=== PATIENT | female | born 1940 | race Caucasian/White ===

== ENCOUNTER → 2016-12-17 | Outpatient (CLI) | payer MEDICARE, OTHER ==
[~2016-12-17] MED LIST: ACET325 PO; ACIP20TA19 PO; ANTI12.5 PO; ASPI81 PO; CARD240C6 PO; LISI-360 PO; PRED5 PO; ZITH250T PO
[2016-12-17 09:27] LABS: AUTOMATED NEUTROPHIL # 5.7 TH/MM3 (1.8-7.7); BASOPHIL # 0.1 TH/MM3 (0-0.2); EOSINOPHIL # 0.2 TH/MM3 (0-0.4); EOSINOPHIL % 1.7 % (0.0-4.0); HEMATOCRIT 42.5 % (35.0-46.0); HEMO FLAGS DIFF FINAL; LYMPH % 24.4 % (9.0-44.0); LYMPHOCYTE # 2.2 TH/MM3 (1.0-4.8); MEAN CELL VOLUME 83.8 FL (80.0-100.0); MEAN CORPUSCULAR HEMOGLOBIN 27.9 PG (27.0-34.0); MEAN CORPUSCULAR HGB CONC 33.3 % (32.0-36.0); MONO % 9.8 % (0.0-8.0); NEUT % 63.1 % (16.0-70.0); PLATELET COUNT 244 TH/MM3 (150-450); RED BLOOD COUNT 5.07 MIL/MM3 (4.00-5.30); RED CELL DISTRIBUTION WIDTH 15.5 % (11.6-17.2)
[2016-12-17 10:46] LABS: ALKALINE PHOSPHATASE 93 U/L (45-117); ALT (GPT) 25 U/L (10-53); ANION GAP 8 MEQ/L (5-15); AST (GOT) 14 U/L (15-37); BLOOD UREA NITROGEN 14 MG/DL (7-18); CHLORIDE 104 MEQ/L (98-107); FREE T4 1.05 NG/DL (0.76-1.46); GLOMERULAR FILTRATION RATE 51 ML/MIN (>89); GLUCOSE,FASTING 101 MG/DL (74-99); SODIUM (NA) 139 MEQ/L (136-145); TOTAL BILIRUBIN ADULT 0.7 MG/DL (0.2-1.0)
== END ==
LOC: PLAB 07:10
PROVIDERS: ATTEND Family Medicine
DX: I10 Essential (primary) hypertension (principal); R53.83 Other fatigue; E55.9 Vitamin D deficiency, unspecified
CPT/HCPCS: 36415; 80053; 82306; 82607; 82746; 84439; 84443; 84480; 85025

== ENCOUNTER 2017-04-24 22:57 | Inpatient (IN) | payer MEDICARE, OTHER ==
[~2017-04-24] VITALS: Ht 165.1 cm; Wt 143.9 kg
[2017-04-24 22:58] VITALS: BP 181/81; PULSE 74; RESP 22; TEMP 97.9; O2SAT 98
[2017-04-24] MEDS ORDERED: SODIUM CHLOR 0.9% 1000 ML INJ 1,000 ML IV ONE (23:01)
[2017-04-24 23:09] VITALS: O2SAT 98
[2017-04-24 23:24] LABS: I-STAT POTASSIUM 4.2 MMOL/L (3.5-4.9); I-STAT SODIUM 139 MMOL/L (138-146)
[2017-04-24 23:27] LABS: AUTOMATED NEUTROPHIL # 5.7 TH/MM3 (1.8-7.7); BASOPHIL # 0.1 TH/MM3 (0-0.2); BASOPHIL % 0.9 % (0.0-2.0); EOSINOPHIL # 0.1 TH/MM3 (0-0.4); EOSINOPHIL % 1.5 % (0.0-4.0); HEMATOCRIT 42.8 % (35.0-46.0); HEMO FLAGS DIFF FINAL; LYMPH % 28.6 % (9.0-44.0); LYMPHOCYTE # 2.8 TH/MM3 (1.0-4.8); MEAN CELL VOLUME 84.5 FL (80.0-100.0); MEAN CORPUSCULAR HEMOGLOBIN 27.6 PG (27.0-34.0); MEAN CORPUSCULAR HGB CONC 32.7 % (32.0-36.0); MONO % 11.2 % (0.0-8.0); NEUT % 57.8 % (16.0-70.0); PLATELET COUNT 183 TH/MM3 (150-450); RED BLOOD COUNT 5.06 MIL/MM3 (4.00-5.30); RED CELL DISTRIBUTION WIDTH 15.4 % (11.6-17.2); WHITE BLOOD COUNT 9.9 TH/MM3 (4.0-11.0)
--- NOTE | 2017-04-24 23:31 | RADRPT ---
EXAM DATE/TIME: 04/24/2017 23:16 [place] COMPARISON: No previous studies available for comparison. INDICATIONS : Stroke Alert. Left sided weakness. RADIATION DOSE: 40.83 CTDIvol (mGy) MEDICAL HISTORY : Cerebrovascular disease. Cardiovascular disease Hypertension. SURGICAL HISTORY : Appendectomy. Cholecystectomy. ENCOUNTER: Initial ACUITY: 1 day PAIN SCALE: 0/10 LOCATION: cranial TECHNIQUE: Multiple contiguous axial images were obtained of the head. Using automated exposure control and adj ustment of the mA and/or kV according to patient size, radiation dose was kept as low as reasonably a chievable to obtain optimal diagnostic quality images. DICOM format image data is available electro nically for review and comparison. FINDINGS: CEREBRUM: The ventricles are normal. No evidence of midline shift, mass lesion, hemorrhage or acute infarction . No extra-axial fluid collections are seen. POSTERIOR FOSSA: The cerebellum and brainstem demonstrate no abnormality. The 4th ventricle is midline. The cerebell opontine angle is unremarkable. EXTRACRANIAL: Visualized sinuses are clear. SKULL: The calvaria is intact. No evidence of skull fracture. CONCLUSION: Negative noncontrast head CT. No acute intracranial abnormality is identified. The above findings were telephoned to Dr. Sahu at 11: 28 PM on 04/24/2017. Imtiaz Bush MD on April 24, 2017 at 23:24 Board Certified Radiologist. This report was verified electronically.
[2017-04-24 23:36] LABS: APTT (PATIENT) 22.8 SEC (24.3-30.1); PROTHROMBIN TIME - PATIENT 10.8 SEC (9.8-11.6)
--- NOTE | 2017-04-24 23:42 | PD ---
HPI Chief Complaint: Stroke Alert Time Seen by Provider: 23:01 Travel History International Travel<30 days: No Contact w/Intl Traveler<30days: No Traveled to known affect area: No History of Present Illness HPI 76-year-old female with history of A. fib on aspirin, basilar artery stroke, hyperlipidemia, hypertension, brought in by EMS from home as a stroke alert. The patient was sleeping, and when she woke up about an hour prior to arrival she felt fine, however when she turned to her side she became extremely dizzy. She then noticed left upper extremity and left lower extremity weakness and inability to ambulate because of this weakness. 911 was called, and upon arrival EMS noted left facial droop, slightly slurred speech, left arm and left leg weakness. Upon arrival to the emergency department her symptoms have improved. She no longer has a left facial droop in her left upper extremity weakness is improving. She is still complaining of left leg weakness as well as paresthesias. No visual disturbances. No headache. No chest pain or dyspnea. Stroke alert called prior to patient arrival in the emergency department. PFSH Past Medical History Arthritis: Yes Blood Disorders: No Heart Rhythm Problems: Yes (TACHYCARDIA) Cancer: No Cardiovascular Problems: Yes Chemotherapy: No Chest Pain: Yes Cerebrovascular Accident: Yes Diminished Hearing: No Endocrine: No Gastrointestinal Disorders: Yes GERD: Yes Genitourinary: No Hypertension: Yes Immune Disorder: No Musculoskeletal: Yes (FIBROMYALGIA) Neurologic: Yes (ANTERIOR VERTEBRAL ARTERY OCCLUSION) Psychiatric: No Reproductive: No Respiratory: Yes (ASTHMA) Radiation Therapy: No Seizures: Yes Sleep Apnea: Yes Menopausal: Yes Ovarian Cysts: Yes Past Surgical History Abdominal Surgery: Yes (CHOLECYSECTOMY, APPENDECTOMY) AICD: No Appendectomy: Yes Arteriovenous Shunt: No Cholecystectomy: Yes Gynecologic Surgery: Yes (D&C) Insulin Pump: No Joint Replacement: No Pacemaker: No Other Surgery: Yes (LEFT BREAST LUMPECTOMY; TEMPORAL ARTERY BIOPSY;) Social History Alcohol Use: No Tobacco Use: No Substance Use: No Allergies-Medications (Allergen,Severity, Reaction): Coded Allergies: acebutolol (Unverified Allergy, Severe, 04/08/17) amlodipine (Unverified Allergy, Severe, NAUSEA,HEADACHE,VOMITING, 04/08/17) atenolol (Unverified Allergy, Severe, 04/08/17) atorvastatin (Unverified Allergy, Severe, NAUSEA,HEADACHE,VOMITING, ) betaxolol (Unverified Allergy, Severe, 04/08/17) carvedilol (Unverified Allergy, Severe, 04/08/17) cephalexin (Unverified Allergy, Severe, 04/08/17) diltiazem (Unverified Allergy, Severe, NAUSEA,HEADACHE,VOMITING, 04/08/17) doxepin (Unverified Allergy, Severe, 04/08/17) hydrochlorothiazide (Unverified Allergy, Severe, 04/08/17) iohexol (Unverified Allergy, Severe, Code 99 - Respiratory Failure, ) isradipine (Unverified Allergy, Severe, NAUSEA,HEADACHE,VOMITING, 04/08/17) labetalol (Unverified Allergy, Severe, 04/08/17) levothyroxine (Unverified Allergy, Severe, 04/08/17) levothyroxine sodium (Unverified Allergy, Severe, 04/08/17) medroxyprogesterone (Unverified Allergy, Severe, 04/08/17) metoprolol (Unverified Allergy, Severe, 04/08/17) monosodium glutamate (Unverified Allergy, Severe, 04/08/17) nebivolol (Unverified Allergy, Severe, 04/08/17) nicardipine (Unverified Allergy, Severe, NAUSEA,HEADACHE,VOMITING, 04/08/17 ) nifedipine (Unverified Allergy, Severe, NAUSEA,HEADACHE,VOMITING, 04/08/17) nimodipine (Unverified Allergy, Severe, NAUSEA,HEADACHE,VOMITING, 04/08/17) pindolol (Unverified Allergy, Severe, 04/08/17) prochlorperazine (Unverified Allergy, Severe, 04/08/17) propranolol (Unverified Allergy, Severe, 04/08/17) ranitidine (Unverified Allergy, Severe, 04/08/17) scopolamine (Unverified Allergy, Severe, 04/08/17) sotalol (Unverified Allergy, Severe, 04/08/17) ticlopidine (Unverified Allergy, Severe, 04/08/17) timolol (Unverified Allergy, Severe, 04/08/17) verapamil (Unverified Allergy, Severe, 04/08/17) MRI PRECAUTION (Verified Allergy, Mild, 10/19/11) codeine (Unverified Allergy, Mild, 04/08/17) diatrizoate meglumine (Unverified Allergy, Mild, 04/08/17) diazepam (Unverified Allergy, Mild, 04/08/17) diphenhydramine (Unverified Allergy, Mild, 04/08/17) doxazosin (Unverified Allergy, Mild, 04/08/17) gadobenic acid (Unverified Allergy, Mild, 04/08/17) gadodiamide (Unverified Allergy, Mild, 04/08/17) gadoteridol (Unverified Allergy, Mild, 04/08/17) iodixanol (Unverified Allergy, Mild, 04/08/17) phentolamine (Unverified Allergy, Mild, 04/08/17) prazosin (Unverified Allergy, Mild, 04/08/17) prednisone (Unverified Allergy, Mild, 04/08/17) terazosin (Unverified Allergy, Mild, 04/08/17) Uncoded Allergies: ASPARATINE (Allergy, Severe, 07/12/07) STERIODS (Allergy, Severe, 07/12/07) MUCINEX (Allergy, Mild, 10/19/11) Reported Meds & Prescriptions Reported Meds & Active Scripts Active Deltasone 5 mg Tab (Prednisone) 5 Mg Tab 5 Mg PO DIRECTED 3 PO DAY 1 2 PO DAY 2 1 PO DAY 3 Zithromax Z-Michael (Azithromycin) 250 Mg Tab 250 Mg PO DIRECTED 5 Days 500 MG (2 TABLETS) PO ON DAY 1, THEN 250 MG (1 TABLET) PO ON DAYS 2 TO 5. Reported Tylenol (Acetaminophen) 325 Mg Tab 325 Mg PO DIRECTED Lisinopril 10 mg (Lisinopril) 10 Mg Tab 10 Mg PO DAILY Antivert (Meclizine HCl) 12.5 Mg Tab 12.5 Mg PO DAILY Aciphex (Rabeprazole Sodium) 20 Mg Tabdr 20 Mg PO DAILY Aspirin 81 Mg Tab 81 Mg PO DAILY Cardizem Cd (Diltiazem HCl) 240 Mg Cap 240 Mg PO DAILY Review of Systems Except as stated in HPI: all other systems reviewed are Neg Physical Exam Narrative GENERAL: Well-developed, well-nourished, overweight, awake, alert, no apparent distress. SKIN: Focused skin assessment warm/dry. HEAD: Atraumatic. Normocephalic. EYES: Pupils equal, round, 3 mm, reactive to light. EOMI. Visual morton intact. No scleral icterus. No injection or drainage. ENT: No nasal bleeding or discharge. Mucous membranes pink and moist. NECK: Trachea midline. No JVD. CARDIOVASCULAR: Regular rate and rhythm. RESPIRATORY: No accessory muscle use. Clear to auscultation. Breath sounds equal bilaterally. GASTROINTESTINAL: Abdomen soft, non-tender, nondistended. MUSCULOSKELETAL: No obvious deformities. No clubbing. No cyanosis. No edema. NEUROLOGICAL: Awake and alert. No obvious cranial nerve deficits. Motor grossly within normal limits. Normal speech. Slight left pronator drift. Normal [id number] test bilaterally. Normal meat boner strength in the right hand. 4/5 meat boner strength in the left hand. 5 out of 5 muscle strength in the right leg. 1 out of 5 muscle strength in the left leg. PSYCHIATRIC: Appropriate mood and affect; insight and judgment normal. Data Data Last Documented VS Orders Orders Activity Bed Rest (04/24/17 ) Electrocardiogram (04/24/17 ) I-Stat Creatinine (04/24/17 23:01) I-Stat Profile (04/24/17 23:) Prothrombin Time / Inr (Pt) (04/24/17 23:) Act Partial Throm Time (Ptt) (04/24/17 23:) Complete Blood Count With Diff (04/24/17 23:) Fibrinogen (04/24/17 23:) Creatine Kinase (Cpk) (04/24/17 23:) Troponin I (04/24/17 23:01) Ua Includes Microscopic (04/24/17 23:01) Drug Screen, Random Urine (04/24/17 23:) Type And Screen (04/24/17 23:) Ct Brain W/O Iv Contrast(Rout) (04/24/17 ) Consult Neurology (04/24/17 ) Blood Glucose (04/24/17 23:01) Ecg Monitoring (04/24/17 23:) Neuro Checks Q2HX12,Q4H (04/24/17 23:01) Nursing Bedside Swallow Assess .ONCE (04/24/17 23:01) Iv Access Insert/Monitor (04/24/17 23:01) NPO (04/24/17 23:) Oximetry (04/24/17 23:) Oxygen Administration (04/24/17 23:) Sodium Chlor 0.9% 1000 Ml Inj (Ns 1000 M (04/24/17 23:01) Resp Oxygen Irwin C Titrat 1-4 L (04/24/17 23:) Cath For Specimen (04/24/17:) Sodium Chlorid 0.9% 500 Ml Inj (Ns 500 M (04/24/17 23:45) Heparin Infusion JESSICA.Q1H (04/24/17 23:45) Heparin-D5w 25,000 U/250 Ml (Heparin-D5w (04/24/17 23:45) Cbc No Diff, Includes Plts (04/27/17 06:00) Occult Blood (Hemoccult) Stool (04/24/17 23:45) Warfarin (Coumadin) (04/24/17 23:45) Admit Order (Ed Use Only) (04/25/17 00:12) Place In Observation (04/25/17 ) Vital Signs (Adult) Q4H (04/25/17 00:34) Neuro Checks Q4H (04/25/17 00:34) Activity Oob With Assistance (04/25/17 00:34) [employer] Service Officer / Telemetry .CONTINUOUS (04/25/17 00:34) Diet Heart Healthy (04/25/17 Breakfast) Sodium Chloride 0.9% Flush (Ns Flush) (04/25/17 00:45) Sodium Chloride 0.9% Flush (Ns Flush) (04/25/17 09:00) Basic Metabolic Panel (Bmp) (04/26/17 06:00) Complete Blood Count With Diff (04/26/17 06:00) Pt Request For Service (04/25/17 00:34) Case Management Consult (04/25/17 00:34) Naloxone Inj (Narcan Inj) (04/25/17 00:45) Labs Laboratory Tests Test 04/24/17 23:10 White Blood Count 9.9 TH/MM3 Red Blood Count 5.06 MIL/MM3 Hemoglobin 14.0 GM/DL Bedside Hemoglobin 13.9 G/DL Hematocrit 42.8 % Bedside Hematocrit 41.0 % Mean Corpuscular Volume 84.5 FL Mean Corpuscular Hemoglobin 27.6 PG Mean Corpuscular Hemoglobin Concent 32.7 % Red Cell Distribution Width 15.4 % Platelet Count 183 TH/MM3 Mean Platelet Volume 9.2 FL Neutrophils (%) (Auto) 57.8 % Lymphocytes (%) (Auto) 28.6 % Monocytes (%) (Auto) 11.2 % Eosinophils (%) (Auto) 1.5 % Basophils (%) (Auto) 0.9 % Neutrophils # (Auto) 5.7 TH/MM3 Lymphocytes # (Auto) 2.8 TH/MM3 Monocytes # (Auto) 1.1 TH/MM3 Eosinophils # (Auto) 0.1 TH/MM3 Basophils # (Auto) 0.1 TH/MM3 CBC Comment DIFF FINAL Differential Comment Prothrombin Time 10.8 SEC Prothromb Time International Ratio 1.0 RATIO Activated Partial Thromboplast Time 22.8 SEC Fibrinogen 449 mg/dL Bedside Sodium 139 MMOL/L Bedside Potassium 4.2 MMOL/L Bedside Chloride 107 MMOL/L Bedside Blood Urea Nitrogen 17 MG/DL Bedside Creatinine 1.1 MG/DL Bedside Glucose 113 MG/DL Total Creatine Kinase 64 U/L Troponin I LESS THAN 0.02 NG/ML MDM Medical Screen Exam Complete: Yes Emergency Medical Condition: Yes Medical Record Reviewed: Yes Differential Diagnosis CVA, ICH, metabolic abnormality Narrative Course 11:05 PM: Case discussed with on-call neurologist Dr. Palmer. Patient is a TPA candidate based on her symptoms. I discussed TPA with the patient and she knows all about this medication and is refusing. She understands the risks and benefits of refusing TPA. 11:30 PM: I was called by the on-call radiologist who informed me that the CT head shows no acute abnormalities. On reassessment the patient's muscle strength in her left leg has significantly improved and is now 4 out of 5. Not only does the patient did not want TPA, her improving symptoms make her less of a candidate for this medication. Case discussed again with Dr. Palmer who recommends a 300 cc normal saline bolus, had a bit flat, starting the patient on heparin with no bolus, and giving the patient an initial dose of Coumadin 10 mg orally. This was discussed with the patient who is refusing heparin and Coumadin, stating that she believes she may be allergic to these medications but is unsure. She understands the risks of refusing these medications including further CVA and permanent hemiparesis/disability. Dr. Palmer also like a CTA of the brain and the neck, however the patient is allergic to IV contrast. 11:45 PM: I had a discussion with the patient regarding her decision to refuse heparin and Coumadin. After discussing the risks and benefits again with her, she decided that she would like to be started on these medications. Case discussed with hospitalist Dr. Segundo who will admit the patient to her service. Critical Care Narrative Aggregate critical care time was 40 minutes. Time to perform other separately billable procedures was not included in the critical care time. My time did not include minutes spent treating any other patients simultaneously or on activities that did not directly contribute to the patient's treatment. The services I provided to this patient were to treat and/or prevent clinically significant deterioration that could result in: Permanent disability, , worsening clinical condition. I provided critical care services requiring my management, as noted below: Chart data review, documentation time, medication orders and management, vital sign assessments/reviewing monitor data, ordering and reviewing lab tests, ordering and interpreting/reviewing x-rays and diagnostic studies, care of the patient and discussion of the patient with the admitting physicians. Stroke Alert NIHSS NIH Stroke Scale Result: 4 NIHSS Time Completed: 23:05 Thrombolytic Contraindications Contraindications: Refusal of Treatment Contraindications Comment: Patient is refusing tPA. Her symptoms have also been improving. Diagnosis Diagnosis: Primary Impression: CVA (cerebral vascular accident) Qualified Codes: I63.9 - Cerebral infarction, unspecified Willie Sahu MD Apr 24, 2017 23:41
[2017-04-24 23:45] LABS: CREATINE KINASE 64 U/L (26-192)
[2017-04-24] MEDS ORDERED: WARFARIN SOD 10 MG TAB PO ONE (23:45)
[2017-04-24] MEDS ORDERED: SODIUM CHLORID 0.9% 500 ML INJ 500 ML IV ONE (23:45)
[2017-04-25] MEDS ORDERED: SODIUM CHLORIDE 0.9% FLUSH 10 ML FLUSH IV FLUSH PRN (00:45)
[2017-04-25] MEDS ORDERED: NALOXONE HCL 0.4 MG/ML AMP IV PRN (00:45)
[2017-04-25] MEDS: HEPARIN-D5W 25,000 U/250 ML 250 ML IV PRN (02:06)
[2017-04-25 03:32] VITALS: BP 165/77
[2017-04-25 03:38] LABS: BACTERIA, URINE OCC /hpf; BLOOD, URINE NEG (NEG); GLUCOSE,URINE NEG (NEG); KETONE, URINE NEG (NEG); MUCUS URINE FEW /lpf (OCC); NITRITE,URINE NEG (NEG); SQUAMOUS EPITHELIAL CELL URINE <1 /hpf (0-5); URINE COLOR LIGHT-YELLOW (YELLW/STRAW)
[2017-04-25 04:33] VITALS: BP 130/71; PULSE 65; RESP 19; TEMP 97.6; O2SAT 96
[2017-04-25 08:21] VITALS: BP 183/87; PULSE 67; RESP 22; TEMP 97.5; O2SAT 93
[2017-04-25] MEDS ORDERED: SODIUM CHLORIDE 0.9% FLUSH 10 ML FLUSH IV FLUSH SCH (09:00)
--- NOTE | 2017-04-25 10:22 | HHI.HP ---
Dr. Moreira HPI Service [facility] Primary Care Physician Adrianne Moreira MD Admission Diagnosis CVA Diagnoses: Chief Complaint: Stroke Travel History International Travel<30 Days: No Contact w/Intl Traveler <30 Da: No Traveled to Known Affected Are: No History of Present Illness Written by Mesfin Gardner, acting as scribe for Dr. Cai on 04/25/17 at 10:23. 76-year-old female with a past medical history of A. fib, vertebral artery occlusion, CVA, MRA, HTN, vertigo, GERD, bronchial asthma who presented as a stroke alert. The patient states that about 9 PM last night she had been sleeping for 30 minutes and woke up with severe vertigo. She had associated nausea and vomiting 2. When she got a bed she noticed that her left leg was dragging. About 15 minutes later when the paramedics arrived she was having left upper extremity weakness as well. Neurology was contacted from the ED and recommended TPA but the patient declined. She was placed on a heparin drip. Overnight she feels like her left upper extremity weakness, numbness, and critical care cns strength is improving. She still has significant left leg weakness. She is having somewhat of a hard time finding words. She denies any vision changes since her recent cataract surgery. She has been having labile blood pressure and her PCP recently increase lisinopril. She states her PCP and cardiology have not started her on anticoagulation due to multiple medication allergies. She was told recently that she may need to start on Coumadin and she is agreeable to that but would like to be on the lowest dose possible. Review of Systems Except as stated in HPI: all other systems reviewed are Neg Past Family Social History Past Medical History Atrial fibrillation with right bundle branch block History of vertebral artery occlusion and CVA with previous left-sided weakness History of lumbar rate in the 70s Hypertension History of vertigo GERD Asthma Past Surgical History Cholecystectomy Appendectomy Left breast lumpectomy Temporal artery biopsy Exploratory laparoscopy for ovarian cysts Tonsils and adenoids Left forearm surgery Cataract surgery Reported Medications Reported Lisinopril 10 Mg Tab 10 Mg PO BID Antivert (Meclizine HCl) 12.5 Mg Tab 12.5 Mg PO DAILY Aciphex (Rabeprazole Sodium) 20 Mg Tabdr 20 Mg PO DAILY Aspirin 81 Mg Tab 81 Mg PO DAILY Cardizem Cd (Diltiazem HCl) 240 Mg Cap 240 Mg PO DAILY Allergies: Coded Allergies: acebutolol (Unverified Allergy, Severe, 04/08/17) amlodipine (Unverified Allergy, Severe, NAUSEA,HEADACHE,VOMITING, 04/08/17) atenolol (Unverified Allergy, Severe, 04/08/17) atorvastatin (Unverified Allergy, Severe, NAUSEA,HEADACHE,VOMITING, ) betaxolol (Unverified Allergy, Severe, 04/08/17) carvedilol (Unverified Allergy, Severe, 04/08/17) cephalexin (Unverified Allergy, Severe, 04/08/17) diltiazem (Unverified Allergy, Severe, NAUSEA,HEADACHE,VOMITING, 04/08/17) doxepin (Unverified Allergy, Severe, 04/08/17) hydrochlorothiazide (Unverified Allergy, Severe, 04/08/17) iohexol (Unverified Allergy, Severe, Code 99 - Respiratory Failure, ) isradipine (Unverified Allergy, Severe, NAUSEA,HEADACHE,VOMITING, 04/08/17) labetalol (Unverified Allergy, Severe, 04/08/17) levothyroxine (Unverified Allergy, Severe, 04/08/17) levothyroxine sodium (Unverified Allergy, Severe, 04/08/17) medroxyprogesterone (Unverified Allergy, Severe, 04/08/17) metoprolol (Unverified Allergy, Severe, 04/08/17) monosodium glutamate (Unverified Allergy, Severe, 04/08/17) nebivolol (Unverified Allergy, Severe, 04/08/17) nicardipine (Unverified Allergy, Severe, NAUSEA,HEADACHE,VOMITING, 04/08/17 ) nifedipine (Unverified Allergy, Severe, NAUSEA,HEADACHE,VOMITING, 04/08/17) nimodipine (Unverified Allergy, Severe, NAUSEA,HEADACHE,VOMITING, 04/08/17) pindolol (Unverified Allergy, Severe, 04/08/17) prochlorperazine (Unverified Allergy, Severe, 04/08/17) propranolol (Unverified Allergy, Severe, 04/08/17) ranitidine (Unverified Allergy, Severe, 04/08/17) scopolamine (Unverified Allergy, Severe, 04/08/17) sotalol (Unverified Allergy, Severe, 04/08/17) ticlopidine (Unverified Allergy, Severe, 04/08/17) timolol (Unverified Allergy, Severe, 04/08/17) verapamil (Unverified Allergy, Severe, 04/08/17) MRI PRECAUTION (Verified Allergy, Mild, 10/19/11) codeine (Unverified Allergy, Mild, 04/08/17) diatrizoate meglumine (Unverified Allergy, Mild, 04/08/17) diazepam (Unverified Allergy, Mild, 04/08/17) diphenhydramine (Unverified Allergy, Mild, 04/08/17) doxazosin (Unverified Allergy, Mild, 04/08/17) gadobenic acid (Unverified Allergy, Mild, 04/08/17) gadodiamide (Unverified Allergy, Mild, 04/08/17) gadoteridol (Unverified Allergy, Mild, 04/08/17) iodixanol (Unverified Allergy, Mild, 04/08/17) phentolamine (Unverified Allergy, Mild, 04/08/17) prazosin (Unverified Allergy, Mild, 04/08/17) prednisone (Unverified Allergy, Mild, 04/08/17) terazosin (Unverified Allergy, Mild, 04/08/17) Uncoded Allergies: ASPARATINE (Allergy, Severe, 07/12/07) STERIODS (Allergy, Severe, 07/12/07) MUCINEX (Allergy, Mild, 10/19/11) Active Ordered Medications Current Medications Medications (Trade) Dose Ordered Sig/Sussy Route Start Time Stop Time Status Last Admin Sodium Chloride 1,000 ml @ 70 mls/hr [id number] ONCE IV 04/24/17 23:01 04/25/17 13:18 04/25/17 01:19 Heparin Sodium/ Dextrose 250 ml @ 0 mls/hr TITRATE PRN IV 04/24/17 23:45 04/25/17 02:06 (NS Flush) 2 ml UNSCH PRN IV FLUSH 04/25/17 00:45 (NS Flush) 2 ml BID IV FLUSH 04/25/17 09:00 (Narcan Inj) 0.4 mg UNSCH PRN IV 04/25/17 00:45 Family History High blood pressure Social History Denies any alcohol, tobacco, or drug use Physical Exam Vital Signs Vital Signs Date Time Temp Pulse Resp B/P (MAP) Pulse Ox O2 Delivery O2 Flow Rate FiO2 04/25/17 08:21 97.5 67 22 183/87 (119) 93 04/25/17 04:33 97.6 65 19 130/71 (90) 96 04/25/17 03:32 80 16 165/77 (106) 100 Nasal Cannula 2.00 04/25/17 02:00 2.00 04/24/17 23:09 98 21 04/24/17 22:58 97.9 74 22 181/81 (114) 98 Physical Exam GENERAL: Well-developed well-nourished. Morbidly obese. In no acute distress. SKIN: Warm and dry. No lesions noted. HEENT: Normocephalic. Pupils equal and round. Mucous membranes pink and moist. CARDIOVASCULAR: Irregular rate and rhythm. No murmur appreciated. RESPIRATORY: No accessory muscle use. Clear to auscultation. Breath sounds equal bilaterally. GASTROINTESTINAL: Abdomen soft, non-tender, nondistended. Bowel sounds x4. MUSCULOSKELETAL: No obvious deformities. No clubbing or cyanosis. No edema. NEUROLOGICAL: Awake and alert. Normal speech with rare expressive aphasia. No facial asymmetry. Sensation grossly intact. Left upper extremity strength 3/ 5. Cannot lift left lower extremity against gravity. PSYCHIATRIC: Appropriate mood and affect; insight and judgment normal. Laboratory Laboratory Tests Test 04/24/17 23:10 04/25/17 03:00 04/25/17 08:00 White Blood Count 9.9 Red Blood Count 5.06 Hemoglobin 14.0 Bedside Hemoglobin 13.9 Hematocrit 42.8 Bedside Hematocrit 41.0 Mean Corpuscular Volume 84.5 Mean Corpuscular Hemoglobin 27.6 Mean Corpuscular Hemoglobin Concent 32.7 Red Cell Distribution Width 15.4 Platelet Count 183 Mean Platelet Volume 9.2 Neutrophils (%) (Auto) 57.8 Lymphocytes (%) (Auto) 28.6 Monocytes (%) (Auto) 11.2 Eosinophils (%) (Auto) 1.5 Basophils (%) (Auto) 0.9 Neutrophils # (Auto) 5.7 Lymphocytes # (Auto) 2.8 Monocytes # (Auto) 1.1 Eosinophils # (Auto) 0.1 Basophils # (Auto) 0.1 CBC Comment DIFF FINAL Differential Comment Prothrombin Time 10.8 Prothromb Time International Ratio 1.0 Activated Partial Thromboplast Time 22.8 39.0 Fibrinogen 449 Bedside Sodium 139 Bedside Potassium 4.2 Bedside Chloride 107 Bedside Blood Urea Nitrogen 17 Bedside Creatinine 1.1 Bedside Glucose 113 Total Creatine Kinase 64 Troponin I LESS THAN 0.02 Urine Color LIGHT-YELLOW Urine Turbidity CLEAR Urine pH 6.0 Urine Specific [place] 1.004 Urine Protein NEG Urine Glucose (UA) NEG Urine Ketones NEG Urine Occult Blood NEG Urine Nitrite NEG Urine Bilirubin NEG Urine Urobilinogen LESS THAN 2.0 Urine Leukocyte Esterase NEG Urine WBC 1 Urine Squamous Epithelial Cells <1 Urine Bacteria OCC Urine Mucus FEW Urine Opiates Screen NEG Urine Barbiturates Screen NEG Urine Amphetamines Screen NEG Urine Benzodiazepines Screen NEG Urine Cocaine Screen NEG Urine Cannabinoids Screen NEG Result Diagram: 04/24/17 2310 Imaging Last Impressions Head CT 04/24/17 0000 Signed Impressions: Service Date/Time: March 23:16 - CONCLUSION: Negative noncontrast head CT. No acute intracranial abnormality is identified. The above findings were telephoned to Dr. Sahu at 11: 28 PM on 04/24/2017. MD Terrie Duncan VTE Risk Assessment Terrie VTE Risk Assessment: Mod/High Risk (score >= 2) Caprini Risk Assessment Model Point Value = 1 Point Value = 2 Point Value = 3 Point Value = 5 Age 41-60 Minor surgery BMI > 25 kg/m2 Swollen legs Varicose veins or History of unexplained or recurrent spontaneous Oral contraceptives or hormone replacement Sepsis (< 1 month) Serious lung disease, including pneumonia (< 1 month) Abnormal pulmonary function Acute myocardial infarction Congestive heart failure (< 1 month) History of inflammatory bowel disease Medical patient at bed rest Age 61-74 Arthroscopic surgery Major open surgery (> 45 min) Laparoscopic surgery (> 45 min) Malignancy Confined to bed (> 72 hours) Immobilizing plaster cast Central venous access Age >= 75 History of VTE Family history of VTE Factor V Leiden Prothrombin [id number] Lupus anticoagulant Anticardiolipin antibodies Elevated serum homocysteine Heparin-induced thrombocytopenia Other congenital or acquired thrombophilia Stroke (< 1 month) Elective arthroplasty Hip, pelvis, or leg fracture Acute spinal cord injury (< 1 month) Prophylaxis Regimen Total Risk Factor Score Risk Level Prophylaxis Regimen 0-1 Low Early ambulation 2 Moderate Order ONE of the following: *Sequential Compression Device (SCD) *Heparin 5000 units SQ BID 3-4 Higher Order ONE of the following medications: *Heparin 5000 units SQ TID *Enoxaparin/Lovenox 40 mg SQ daily (WT < 150 kg, CrCl > 30 mL/min) *Enoxaparin/Lovenox 30 mg SQ daily (WT < 150 kg, CrCl > 10-29 mL/min) *Enoxaparin/Lovenox 30 mg SQ BID (WT < 150 kg, CrCl > 30 mL/min) AND/OR *Sequential Compression Device (SCD) 5 or more Highest Order ONE of the following medications: *Heparin 5000 units SQ TID (Preferred with Epidurals) *Enoxaparin/Lovenox 40 mg SQ daily (WT < 150 kg, CrCl > 30 mL/min) *Enoxaparin/Lovenox 30 mg SQ daily (WT < 150 kg, CrCl > 10-29 mL/min) *Enoxaparin/Lovenox 30 mg SQ BID (WT < 150 kg, CrCl > 30 mL/min) AND *Sequential Compression Device (SCD) Assessment and Plan Assessment and Plan 76-year-old female with a past medical history of A. fib, vertebral artery occlusion, CVA, MRA, HTN, vertigo, GERD, bronchial asthma who presented as a stroke alert Acute CVA: Patient still with profound left-sided weakness. Head CT showed no acute intracranial process. -Neurology consulted, appreciate input -Stroke protocol; head of bed flat, IVF, neuro checks, telemetry, stroke scale -On heparin GTT, start Coumadin -PT/OT/ST -Check hemoglobin A1c and lipid profile Atrial fibrillation: Previously on aspirin, will DC and start on Coumadin as above, pharmacy consult. Continue Cardizem for rate control. Other chronic medical conditions include GERD, asthma: Stable at this time and will continue home medications as indicated. DVT prophylaxis: Anticoagulation as above. SCDs. This note was transcribed by ruth [Jj Toure]. I, Dr. Negrita Cai personally performed the history, physical exam, and medical decision making; and confirmed the accuracy of the information in the transcribed note. Authenticated by Dr. Negrita Cai on 04/25/17 at 10:30. Discussed Condition With Patient Mesfin Gardner Apr 25, 2017 10:22 Negrita Cai MD Apr 25, 2017 10:52
[2017-04-25] MEDS ORDERED: SODIUM CHLORIDE 0.9% FLUSH 5 ML FLUSH IV FLUSH PRN (10:30)
[2017-04-25] MEDS ORDERED: GLUCAGON 1 MG/ML VIAL OTHER PRN (10:30)
[2017-04-25] MEDS ORDERED: RESP: ALBUTEROL 2.5 MG/IPRATROPIUM 0.5 MG NEB (PRN) NEB (10:30)
[2017-04-25] MEDS ORDERED: DEXTROSE 50% IN WATER 50 ML VIAL(D50) IV PUSH PRN (10:30)
[2017-04-25] MEDS: SODIUM CHLOR 0.9% 1000 ML INJ 1,000 ML IV SCH ×3 (12:31→21:38)
[2017-04-25] MEDS: INSULIN ASPART SUPPLEMENTAL SCALE SQ SCH ×3 (12:31→21:37)
[2017-04-25 12:42] VITALS: BP 165/73; PULSE 66; RESP 22; TEMP 97.6; O2SAT 94
[2017-04-25 13:28] LABS: PROTHROMBIN TIME - PATIENT 11.2 SEC (9.8-11.6)
--- NOTE | 2017-04-25 15:32 | ECHRPT ---
Indication: CVA/TIA CONCLUSIONS Normal left ventricular size. Wall thickness is normal. The left ventricular systolic function is low normal with an estimated ejection fraction in the rang e of 50- 55%. There was limited left ventricular wall motion assessment due to poor endocardial visualization. The right atrial size is mildly dilated. Mitral annular calcification is present. Mild mitral valve regurgitation. There is mild tricuspid valve regurgitation. There is estimated mild pulmonary hypertension present (43 mmHg). There is a trivial pericardial effusion. BP: 183 / 87 HR: 67 Rhythm: Sinus MEASUREMENTS (Male / Female) Normal Values Technical Quality:Fair 2D ECHO LV Diastolic Diameter PLAX 4.9 cm 4.2 - 5.9 / 3.9 - 5.3 cm LV Systolic Diameter PLAX 3.7 cm IVS Diastolic Thickness 1.1 cm 0.6 - 1.0 / 0.6 - 0.9 cm LVPW Diastolic Thickness 1.0 cm 0.6 - 1.0 / 0.6 - 0.9 cm LV Relative Wall Thickness 0.4 RV Internal Dim ED PLAX 2.1 cm LA Systolic Diameter LX 4.3 cm 3.0 - 4.0 / 2.7 - 3.8 cm M-MODE Aortic Root Diameter MM 2.9 cm AV Cusp Separation MM 2.0 cm DOPPLER AV Peak Velocity 182.0 cm/s AV Peak Gradient 13.2 mmHg LVOT Peak Velocity 122.0 cm/s LVOT Peak Gradient 6.0 mmHg Mitral E Point Velocity 170.0 cm/s Mitral A Point Velocity 81.8 cm/s Mitral E to A Ratio 2.1 TR Peak Velocity 286.0 cm/s TR Peak Gradient 32.7 mmHg FINDINGS LEFT VENTRICLE Normal left ventricular size. Wall thickness is normal. The left ventricular systolic function is low normal with an estimated ejection fraction in the rang e of 50- 55%. There was limited left ventricular wall motion assessment due to poor endocardial visualization. RIGHT VENTRICLE Normal right ventricular size and systolic function. LEFT ATRIUM The left atrial size is normal. RIGHT ATRIUM The right atrial size is mildly dilated. ATRIAL SEPTUM Normal atrial septal thickness without atrial level shunting by limited color doppler interrogation. AORTA The aortic root and proximal ascending aorta are normal in size on limited imaging. MITRAL VALVE Mitral annular calcification is present. Mild mitral valve regurgitation. AORTIC VALVE Trileaflet aortic valve. No aortic valve stenosis or regurgitation. TRICUSPID VALVE There is mild tricuspid valve regurgitation. There is estimated mild pulmonary hypertension present (43 mmHg). PULMONARY VALVE The pulmonary valve is not well visualized. VESSELS The inferior vena cava is normal in size. PERICARDIUM There is a trivial pericardial effusion. Alba Chow MD, FACC (Electronically Signed) Final Date:25 April 2017 15:32
[2017-04-25] MEDS ORDERED: WARFARIN SOD 5 MG TAB PO SCH (16:00)
--- NOTE | 2017-04-25 17:17 | RADRPT ---
EXAM DATE/TIME: 04/25/2017 16:12 [facility] COMPARISON: No previous studies available for comparison. INDICATIONS : Cerebrovascular accident. MEDICAL HISTORY : Stroke. Hypercholesterolemia. Gastroesophageal reflux disease. Glasses. Seizures. Chest pain. Atrial fibrillation. Hypertension. Sleep apnea. Ovarian cysts. Arthritis. SURGICAL HISTORY : Appendectomy. Cholecystectomy. Dilation and curettage. Left elbow surgery. ENCOUNTER: Initial ACUITY: 1 day PAIN SCORE: 0/10 LOCATION: Bilateral neck PEAK SYSTOLIC VELOCITIES (cm/sec): ICA/CCA RATIO: Right: 1.0 Left: 1.0 ICA: Right: 91.9 Left: 95.0 CCA: Right: 91.0 Left: 94.4 ECA: Right: 116.8 Left: 102.3 VERTEBRAL: Right: 50.3 antegrade Left: 64.9 antegrade Elevated flow velocities and ICA/CCA ratios have been found to correlate with increased degrees of vessel stenosis, calculated as percentage of diameter relative to a normal segment of distal ICA/CCA FINDINGS: RIGHT CAROTID: No significant stenosis is visualized. The waveforms are within normal limits. LEFT CAROTID: No significant stenosis is visualized. The waveforms are within normal limits. VERTEBRAL ARTERIES: Antegrade flow is seen in both vertebral arteries. MISCELLANEOUS: None. CONCLUSION: Negative for hemodynamically significant stenosis. Jonathan Kurtz MD FACR on April 25, 2017 at 17:15 Board Certified Radiologist. This report was verified electronically.
[2017-04-25 17:22] LABS: APTT (PATIENT) 31.5 SEC (24.3-30.1)
--- NOTE | 2017-04-25 18:00 | MB ---
cc: TEA HERNANDEZ MD DATE OF CONSULTATION 04/25/17 1941 REASON FOR CONSULTATION Stroke, left sided weakness. HISTORY OF PRESENT ILLNESS This patient is a pleasant 76-year-old woman with a history of atrial fibrillation, vertebral artery occlusion, stroke in the past, hypertension, vertigo, asthma who came in as a stroke alert. Symptoms started about 9 o'clock where she started having severe vertigo and then some nausea, vomiting and she had to go to the bathroom and noted her left leg was dragging and had called her friend, her roommate, and found to have blood pressure over 200. Subsequently, they called . Paramedics arrived and she started having some left upper extremity weakness as well. Neurology propulsion machinery service engineer was contacted last night and recommended TPA, but the patient declined. However, she is on a heparin drip now at 11 mL per hour. She feels like her left side has improved, but still a little weak she thinks in the quadriceps on the left side. Her speech is intact otherwise. PAST MEDICAL HISTORY As stated. PAST SURGICAL HISTORY 1. Left breast lumpectomy 2. Temporal artery biopsy, 3. Cholecystectomy, 4. Appendectomy 5. Forearm surgery on the left. Of note, she is left handed. MEDICATIONS 1. Lisinopril 2. Antevert 3. Aciphex 4. Baby aspirin, 5. Cardizem ALLERGIES Please refer to MAR. They are numerous. PHYSICAL EXAMINATION VITAL SIGNS: Temperature 97.6, pulse 66, respiratory rate 22, blood pressure 165/73, satting at 94%. NECK: Supple. No bruits. HEART: Irregularly irregular. NEUROLOGIC: She is awake and alert. Speech is normal. Pupils are reactive. Visual morton are full. Face symmetrical. Tongue is midline. She does exhibit a mild drift in the left arm at best she is 4+/5 on the left arm and left leg is 4/5. DTRs are trace throughout. Toes withdraws. Cerebellar testing is normal. Sensory is normal. Her gait is withheld. Defer to PT. LABORATORY DATA Labs are reviewed. PTT this morning is 39, creatinine 1.1. Tox screen was negative. Urine few mucus. IMAGING STUDIES CT head was unremarkable for anything acute. IMPRESSION 1. Right hemispheric stroke in this patient with atrial fibrillation. 2. Hypertension. RECOMMENDATION Continue the heparin and bridge her with Coumadin. She is willing to do that. PT, OT ongoing evaluation. Get a lipid panel. Heparin per protocol. Stop once her INR is at two. There is some ALLERGY TO MRI. At this point not sure what that is, but if she is able to have an MRI of the brain and [facility] if this be indicated. I see she has some issues with contrast also for CT I believe down. Start normalizing her blood pressure without making her hypotensive and, depending how she does with therapy, either a rehab consult versus home health and PT. MD ZELALEM Allen/ /1:04 PM /5:38 PM
[2017-04-25 18:15] VITALS: BP 181/85; PULSE 60; RESP 20; TEMP 98; O2SAT 96
[2017-04-25 18:36] LABS: AUTOMATED NEUTROPHIL # 5.5 TH/MM3 (1.8-7.7); BASOPHIL # 0.1 TH/MM3 (0-0.2); BASOPHIL % 0.7 % (0.0-2.0); EOSINOPHIL # 0.1 TH/MM3 (0-0.4); EOSINOPHIL % 1.1 % (0.0-4.0); HEMATOCRIT 40.2 % (35.0-46.0); HEMO FLAGS DIFF FINAL; LYMPH % 23.8 % (9.0-44.0); LYMPHOCYTE # 2.1 TH/MM3 (1.0-4.8); MEAN CELL VOLUME 84.3 FL (80.0-100.0); MEAN CORPUSCULAR HEMOGLOBIN 27.8 PG (27.0-34.0); NEUT % 63.4 % (16.0-70.0); PLATELET COUNT 179 TH/MM3 (150-450); RED BLOOD COUNT 4.76 MIL/MM3 (4.00-5.30); RED CELL DISTRIBUTION WIDTH 15.4 % (11.6-17.2); WHITE BLOOD COUNT 8.7 TH/MM3 (4.0-11.0)
[2017-04-25 18:49] LABS: ANION GAP 8 MEQ/L (5-15); BICARBONATE 25.3 MEQ/L (21.0-32.0); BLOOD UREA NITROGEN 10 MG/DL (7-18); CHLORIDE 110 MEQ/L (98-107); GLOMERULAR FILTRATION RATE 68 ML/MIN (>89); POTASSIUM 3.8 MEQ/L (3.5-5.1); SODIUM (NA) 143 MEQ/L (136-145)
[2017-04-25 20:00] VITALS: BP 198/87; PULSE 70; RESP 20; TEMP 98; O2SAT 96
--- NOTE | 2017-04-25 20:33 | RADRPT ---
EXAM DATE/TIME: 04/25/2017 19:12 [facility] COMPARISON: No previous studies available for comparison. INDICATIONS : CVA. MEDICAL HISTORY : Hypertension. Seizures. Sleep apnea. A-fib. SURGICAL HISTORY : Cholecystectomy. Appendectomy. ENCOUNTER: Subsequent ACUITY: 1 day PAIN SCORE: 3/10 LOCATION: cranial TECHNIQUE: Multiplanar, multisequence MRI of the brain was performed without contrast. FINDINGS: CEREBRUM: The ventricles are normal for age. No evidence of midline shift, mass lesion, hemorrhage or acute in farction. No extraaxial fluid collections are seen. The pituitary gland and suprasellar cistern are normal in configuration. WHITE MATTER: No significant signal abnormalities are seen in the white matter. POSTERIOR FOSSA: The cerebellum and brainstem are intact. The 4th ventricle is midline. The cerebellopontine angle is unremarkable. The cerebellar tonsils are normal in position. DIFFUSION IMAGING: No focal areas of restricted diffusion are seen. No evidence of acute infarction. EXTRACRANIAL: The visualized portions of the orbits and paranasal sinuses are unremarkable. CONCLUSION: No acute disease. Imtiaz Gonzalez MD on April 25, 2017 at 20:30 Board Certified Radiologist. This report was verified electronically.
--- NOTE | 2017-04-25 20:35 | RADRPT ---
EXAM DATE/TIME: 04/25/2017 19:12 [facility] COMPARISON: No previous studies available for comparison. INDICATIONS : Stroke. MEDICAL HISTORY : Hypertension. Seizures. Sleep apnea. A-fib. SURGICAL HISTORY : Cholecystectomy. Appendectomy. ENCOUNTER: Subsequent ACUITY: 1 day PAIN SCORE: 3/10 LOCATION: cranial Please note a normal MRA of the brain does not entirely exclude the possibility of a small aneurysm, nor the possibility of distal intracranial vessel disease. TECHNIQUE: 3D time of flight MRA was performed. Source images, multiplanar STS MIP, and 3D volume MIP reconstru ctions were reviewed. FINDINGS: There is excellent visualization of the major intracranial arteries out to the second-order branch ve ssels. There is no evidence for aneurysm, vessel truncation or stenosis, and no evidence for vascula r malformation. There is asymmetry to the A1 segments of the anterior cerebral arteries with the left A1 segment being smaller than the right. The A2 segments are symmetric. This is typically normal salty iant. CONCLUSION: No acute disease. Imtiaz Gonzalez MD on April 25, 2017 at 20:31 Board Certified Radiologist. This report was verified electronically.
[2017-04-25] MEDS: SODIUM CHLORIDE 0.9% FLUSH 5 ML FLUSH IV FLUSH SCH (21:38)
[2017-04-25] MEDS: DILTIAZEM-CD 240 MG CAP ER PO SCH (21:38)
[2017-04-26] VITALS (9 sets, daily range): BP systolic 128–207; BP diastolic 73–81; PULSE 42–81; RESP 16–22; TEMP 97.8–98.4; O2SAT 94–97
--- NOTE | 2017-04-26 00:28 | EKG ---
Date Performed: 04/25/2017 Time Performed: 03:00:05 PTAGE: 76 years EKG: ATRIAL FIBRILLATION MARKED LEFT AXIS DEVIATION RIGHT BUNDLE BRANCH BLOCK ABNORMAL ECG PREVIOUS TRACING : 07/12/2007 02.14 Compared to the previous tracing, previously in Sinus rhyth m DOCTOR: Jose Alejandro Rod Interpretating Date/Time 04/26/2017 00:27:17
[2017-04-26 03:03] LABS: AUTOMATED NEUTROPHIL # 6.5 TH/MM3 (1.8-7.7); BASOPHIL # 0.1 TH/MM3 (0-0.2); BASOPHIL % 0.6 % (0.0-2.0); EOSINOPHIL # 0.1 TH/MM3 (0-0.4); HEMATOCRIT 39.6 % (35.0-46.0); HEMO FLAGS DIFF FINAL; LYMPH % 21.7 % (9.0-44.0); LYMPHOCYTE # 2.1 TH/MM3 (1.0-4.8); MEAN CELL VOLUME 83.9 FL (80.0-100.0); MEAN CORPUSCULAR HEMOGLOBIN 27.3 PG (27.0-34.0); MEAN CORPUSCULAR HGB CONC 32.5 % (32.0-36.0); NEUT % 66.7 % (16.0-70.0); PLATELET COUNT 184 TH/MM3 (150-450); RED BLOOD COUNT 4.71 MIL/MM3 (4.00-5.30); RED CELL DISTRIBUTION WIDTH 15.5 % (11.6-17.2); WHITE BLOOD COUNT 9.8 TH/MM3 (4.0-11.0)
[2017-04-26 03:13] LABS: APTT (PATIENT) 33.1 SEC (24.3-30.1); PROTHROMBIN TIME - PATIENT 11.2 SEC (9.8-11.6)
[2017-04-26 03:26] LABS: BICARBONATE 24.7 MEQ/L (21.0-32.0); POTASSIUM 3.8 MEQ/L (3.5-5.1)
[2017-04-26 03:28] LABS: HDL CHOLESTEROL 42.9 MG/DL (40.0-60.0)
[2017-04-26] MEDS: INSULIN ASPART SUPPLEMENTAL SCALE SQ SCH ×4 (06:00→20:47)
[2017-04-26] MEDS ORDERED: PANTOPRAZOLE SOD 20 MG DELAYED RELEASE TAB PO SCH (09:00)
[2017-04-26] MEDS: SODIUM CHLORIDE 0.9% FLUSH 5 ML FLUSH IV FLUSH SCH ×2 (09:00→21:00)
[2017-04-26] MEDS ORDERED: LISINOPRIL 10 MG TAB PO SCH (09:00)
[2017-04-26] MEDS: DILTIAZEM-CD 240 MG CAP ER PO SCH (09:00)
[2017-04-26 10:06] LABS: APTT (PATIENT) 36.3 SEC (24.3-30.1)
[2017-04-26 10:25] LABS: HEMOGLOBIN Ao 84.6 %; HEMOGLOBIN LA1C 1.8 %; HEMOGLOBIN P3 4.1 %
[2017-04-26] MEDS: SODIUM CHLOR 0.9% 1000 ML INJ 1,000 ML IV SCH (11:59)
--- NOTE | 2017-04-26 13:59 | HHI.PR ---
Subjective Remarks The patient wanted to know what the findings of her MRI and carotid ultrasound and echo were. She said that the strength on the left side of her body is improving. She still has some difficulty with aphasia. She says she has been having high blood pressure and irregular heart rates that she has been following with her primary care and rn supplemental recently. Discussed with nursing. Objective Vitals Vital Signs Date Time Temp Pulse Resp B/P (MAP) Pulse Ox O2 Delivery O2 Flow Rate FiO2 04/26/17 12:00 97.9 81 16 128/75 (92) 97 04/26/17 08:11 42 04/26/17 08:00 98.0 60 17 173/74 (107) 96 04/26/17 05:58 94 04/26/17 00:00 98.4 63 20 180/77 (111) 96 04/25/17 20:00 98.0 70 20 198/87 (124) 96 04/25/17 18:15 98.0 60 20 181/85 (117) 96 I/O 04/25/17 04/25/17 04/25/17 04/26/17 04/26/17 04/26/17 06:59 14:59 22:59 06:59 14:59 22:59 Intake Total 263 ml Output Total 1100 ml 2 ml Balance -1100 ml -2 ml 263 ml Intake IV Total 263 ml Output Urine Total 1100 ml 2 ml # Voids 1 Result Diagram: 04/26/17 0250 04/26/17 0250 Imaging Last Impressions Head Magnetic Resonance Angiography 04/25/17 0000 Signed Impressions: Service Date/Time: Tuesday, April 25, 2017 19:12 - CONCLUSION: No acute disease. Imtiaz Gonzalez MD Carotid Artery Ultrasound 04/25/17 0000 Signed Impressions: Service Date/Time: Tuesday, April 25, 2017 16:12 - CONCLUSION: Negative for hemodynamically significant stenosis. Jonathan Kurtz MD FACR Brain MRI 04/25/17 0000 Signed Impressions: Service Date/Time: Tuesday, April 25, 2017 19:12 - CONCLUSION: No acute disease. Imtiaz Gonzalez MD Head CT 04/24/17 0000 Signed Impressions: Service Date/Time: March 23:16 - CONCLUSION: Negative noncontrast head CT. No acute intracranial abnormality is identified. The above findings were telephoned to Dr. Sahu at 11: 28 PM on 04/24/2017. Imtiaz Bush MD Objective Remarks GENERAL: Well-developed well-nourished. Morbidly obese. In no acute distress. SKIN: Warm and dry. No lesions noted. HEENT: Normocephalic. Pupils equal and round. Mucous membranes pink and moist. CARDIOVASCULAR: Irregular rate and rhythm. No murmur appreciated. RESPIRATORY: No accessory muscle use. Clear to auscultation. Breath sounds equal bilaterally. GASTROINTESTINAL: Abdomen soft, non-tender, nondistended. Bowel sounds x4. MUSCULOSKELETAL: No obvious deformities. No clubbing or cyanosis. No edema. NEUROLOGICAL: Awake and alert. Normal speech with rare expressive aphasia. No facial asymmetry. Sensation grossly intact. Left upper/ lower extremity strength 4/5. Normal strength on the right. PSYCHIATRIC: Appropriate mood and affect; insight and judgment normal. Medications and IVs Current Medications Medications (Trade) Dose Ordered Sig/Sussy Route Start Time Stop Time Status Last Admin Heparin Sodium/ Dextrose 250 ml @ 0 mls/hr TITRATE PRN IV 04/24/17 23:45 04/25/17 02:06 (Narcan Inj) 0.4 mg UNSCH PRN IV 04/25/17 00:45 (NS Flush) 2 ml BID IV FLUSH 04/25/17 21:00 04/26/17 09:00 (NS Flush) 2 ml UNSCH PRN IV FLUSH 04/25/17 10:30 Sodium Chloride 1,000 ml @ 70 mls/hr [id number] IV 04/25/17 10:24 04/26/17 11:59 (NovoLOG SUPPLEMENTAL SCALE) 1 ACHS SQ 04/25/17 11:00 (D50w (Vial) Inj) 50 ml UNSCH PRN IV PUSH 04/25/17 10:30 (Glucagon Inj) 1 mg UNSCH PRN OTHER 04/25/17 10:30 (Duoneb Neb) 1 ampule Q4HR NEB PRN NEB 04/25/17 10:30 (Coumadin) 5 mg DAILY@1600 PO 04/25/17 16:00 04/25/17 18:37 Pharmacy Profile Note 0 ml @ 0 mls/hr UNSCH OTHER 04/25/17 11:00 (Cardizem Cd) 240 mg DAILY PO 04/25/17 19:15 Future Hold 04/25/17 21:38 (Prinivil) 10 mg DAILY PO 04/26/17 09:00 A/P Assessment and Plan 76-year-old female with a past medical history of A. fib, vertebral artery occlusion, CVA, MRA, HTN, vertigo, GERD, bronchial asthma who presented as a stroke alert Acute CVA: Patient still with profound left-sided weakness. Head CT showed no acute intracranial process. Neurology consulted, appreciate input. Carotid US, echo, and MRI brain unremarkable. LDL 98, A1c 5.8%. -On heparin GTT, started Coumadin. -PT/OT/ST -Check hemoglobin A1c and lipid profile. Atrial fibrillation/ Bradycardia/ Sinus pauses HR has been in the 30s at times and the pt has had 2-3 second pauses on telemetry. - hold Cardizem. - cardiology consult requested. - telemetry. - Coumadin and heparin gtt. HTN Blood pressure has been widely fluctuating recently. - hold Cardizem as above. - continue lisinopril and increase as needed. Other chronic medical conditions include GERD, asthma: Stable at this time and will continue home medications as indicated. DVT prophylaxis: Anticoagulation as above. SCDs. Discharge Planning Awaiting cardiology evaluation Donny Eduardo DO Apr 26, 2017 13:59
--- NOTE | 2017-04-26 14:09 | HHI.PR ---
Subjective Remarks left side near normal sinus pauses overnight Objective Vital Signs Date Time Temp Pulse Resp B/P (MAP) Pulse Ox O2 Delivery O2 Flow Rate FiO2 04/26/17 12:00 97.9 81 16 128/75 (92) 97 04/26/17 08:11 42 04/26/17 08:00 98.0 60 17 173/74 (107) 96 04/26/17 05:58 94 04/26/17 00:00 98.4 63 20 180/77 (111) 96 04/25/17 20:00 98.0 70 20 198/87 (124) 96 04/25/17 18:15 98.0 60 20 181/85 (117) 96 I/O 04/25/17 04/25/17 04/25/17 04/26/17 04/26/17 04/26/17 07:00 15:00 23:00 07:00 15:00 23:00 Intake Total 263 ml Output Total 1100 ml 2 ml Balance -1100 ml -2 ml 263 ml Intake IV Total 263 ml Output Urine Total 1100 ml 2 ml # Voids 1 Result Diagram: 04/26/17 0250 04/26/17 0250 Imaging mri neg cus neg Objective Remarks awake alert fluent perrla motor looks normal b/l dtrs trace gait held Assessment and Plan Assessment and Plan tia a fib/pauses -cardiology eval heparin coumadin bridge stop heparin when inr is 2. Nadege Ochoa MD Apr 26, 2017 14:09
[2017-04-26] MEDS: WARFARIN SOD 6 MG TAB PO SCH (16:03)
[2017-04-26] MEDS: HEPARIN-D5W 25,000 U/250 ML 250 ML IV PRN (16:10)
[2017-04-26 17:47] LABS: APTT (PATIENT) 40.1 SEC (24.3-30.1)
[2017-04-26] MEDS: LISINOPRIL 10 MG TAB PO SCH (20:47)
[2017-04-27] VITALS (11 sets, daily range): BP systolic 148–198; BP diastolic 68–79; PULSE 53–76; RESP 17–20; TEMP 96–97.6; O2SAT 93–98
[2017-04-27] MEDS: SODIUM CHLOR 0.9% 1000 ML INJ 1,000 ML IV SCH (01:40)
[2017-04-27 01:57] LABS: HEMATOCRIT 39.2 % (35.0-46.0); MEAN CELL VOLUME 84.9 FL (80.0-100.0); MEAN CORPUSCULAR HEMOGLOBIN 27.5 PG (27.0-34.0); MEAN CORPUSCULAR HGB CONC 32.4 % (32.0-36.0); PLATELET COUNT 184 TH/MM3 (150-450); RED BLOOD COUNT 4.62 MIL/MM3 (4.00-5.30); RED CELL DISTRIBUTION WIDTH 15.5 % (11.6-17.2); REVIEW FLAG FINAL; WHITE BLOOD COUNT 9.6 TH/MM3 (4.0-11.0)
[2017-04-27 02:07] LABS: APTT (PATIENT) 26.1 SEC (24.3-30.1); INTERNATIONAL NORMALIZED RATIO 1.1 RATIO; PROTHROMBIN TIME - PATIENT 12.1 SEC (9.8-11.6)
[2017-04-27] MEDS: INSULIN ASPART SUPPLEMENTAL SCALE SQ SCH ×4 (06:35→19:40)
[2017-04-27] MEDS: LISINOPRIL 10 MG TAB PO SCH (08:02)
[2017-04-27] MEDS: SODIUM CHLORIDE 0.9% FLUSH 5 ML FLUSH IV FLUSH SCH ×2 (08:02→21:00)
[2017-04-27 08:19] LABS: APTT (PATIENT) 41.6 SEC (24.3-30.1)
--- NOTE | 2017-04-27 10:36 | HHI.PR ---
Subjective Remarks The patient said that she had a strange sensation in her upper abdomen that has since resolved. She did not develop any further weakness and feels like her left side is getting stronger. She was able to take a shower today. She said she felt wiped out afterwards. She is concerned about her high blood pressure. She says she is urinating a lot with the fluids. She says she is having regular bowel movements. Objective Vitals Vital Signs Date Time Temp Pulse Resp B/P (MAP) Pulse Ox O2 Delivery O2 Flow Rate FiO2 04/27/17 09:05 95 04/27/17 08:00 97.3 69 17 181/74 (109) 96 04/27/17 07:16 53 04/27/17 04:00 97.6 61 20 169/72 (104) 93 04/27/17 00:00 97.5 69 20 176/79 (111) 94 04/26/17 23:07 69 04/26/17 22:21 173/73 (106) 04/26/17 20:00 97.8 70 22 207/81 (123) 94 04/26/17 16:00 97.8 61 17 183/73 (109) 96 04/26/17 12:00 97.9 81 16 128/75 (92) 97 I/O 04/26/17 04/26/17 04/26/17 04/27/17 04/27/17 04/27/17 06:59 14:59 22:59 06:59 14:59 22:59 Intake Total 263 ml 828 ml 240 ml Output Total 700 ml Balance 263 ml 128 ml 240 ml Intake Oral 720 ml 240 ml IV Total 263 ml 108 ml Output Urine Total 700 ml # Voids 1 2 2 # Bowel Movements 3 Result Diagram: 04/27/17 0133 04/26/17 0250 Imaging Last Impressions Head Magnetic Resonance Angiography 04/25/17 0000 Signed Impressions: Service Date/Time: Tuesday, April 25, 2017 19:12 - CONCLUSION: No acute disease. Imtiaz Gonzalez MD Carotid Artery Ultrasound 04/25/17 0000 Signed Impressions: Service Date/Time: Tuesday, April 25, 2017 16:12 - CONCLUSION: Negative for hemodynamically significant stenosis. Jonathan Kurtz MD FACR Brain MRI 04/25/17 0000 Signed Impressions: Service Date/Time: Tuesday, April 25, 2017 19:12 - CONCLUSION: No acute disease. Imtiaz Gonzalez MD Head CT 04/24/17 0000 Signed Impressions: Service Date/Time: March 23:16 - CONCLUSION: Negative noncontrast head CT. No acute intracranial abnormality is identified. The above findings were telephoned to Dr. Sahu at 11: 28 PM on 04/24/2017. Imtiaz Bush MD Objective Remarks GENERAL: Well-developed well-nourished. Morbidly obese. In no acute distress. SKIN: Warm and dry. No lesions noted. HEENT: Normocephalic. Pupils equal and round. Mucous membranes pink and moist. CARDIOVASCULAR: Irregular rate and rhythm. No murmur appreciated. RESPIRATORY: No accessory muscle use. Clear to auscultation. Breath sounds equal bilaterally. GASTROINTESTINAL: Abdomen soft, non-tender, nondistended. Bowel sounds x4. MUSCULOSKELETAL: No obvious deformities. No clubbing or cyanosis. TR-1+ edema. NEUROLOGICAL: Awake and alert. Normal speech with rare expressive aphasia. No facial asymmetry. Sensation grossly intact. Left upper/ lower extremity strength 4/5. Normal strength on the right. PSYCHIATRIC: Appropriate mood and affect; insight and judgment normal. Medications and IVs Current Medications Medications (Trade) Dose Ordered Sig/Sussy Route Start Time Stop Time Status Last Admin Heparin Sodium/ Dextrose 250 ml @ 0 mls/hr TITRATE PRN IV 04/24/17 23:45 04/26/17 16:10 (Narcan Inj) 0.4 mg UNSCH PRN IV 04/25/17 00:45 (NS Flush) 2 ml BID IV FLUSH 04/25/17 21:00 04/27/17 08:02 (NS Flush) 2 ml UNSCH PRN IV FLUSH 04/25/17 10:30 Sodium Chloride 1,000 ml @ 70 mls/hr [id number] IV 04/25/17 10:24 04/27/17 01:40 (NovoLOG SUPPLEMENTAL SCALE) 1 ACHS SQ 04/25/17 11:00 (D50w (Vial) Inj) 50 ml UNSCH PRN IV PUSH 04/25/17 10:30 (Glucagon Inj) 1 mg UNSCH PRN OTHER 04/25/17 10:30 (Duoneb Neb) 1 ampule Q4HR NEB PRN NEB 04/25/17 10:30 Pharmacy Profile Note 0 ml @ 0 mls/hr UNSCH OTHER 04/25/17 11:00 (Cardizem Cd) 240 mg DAILY PO 04/25/17 19:15 Future Hold 04/25/17 21:38 (Coumadin) 6 mg DAILY@1600 PO 04/26/17 16:00 04/26/17 16:03 (Prinivil) 20 mg BID PO 04/27/17 21:00 (Prinivil) 10 mg ONCE ONCE PO 04/27/17 11:00 04/27/17 11:01 A/P Assessment and Plan 76-year-old female with a past medical history of A. fib, vertebral artery occlusion, CVA, MRA, HTN, vertigo, GERD, bronchial asthma who presented as a stroke alert Acute CVA Patient still with profound left-sided weakness. Head CT showed no acute intracranial process. Neurology consulted, appreciate input. Carotid US, echo, and MRI brain unremarkable. LDL 98, A1c 5.8%. - On heparin gtt, started Coumadin. D/c ASA. - PT/OT/ST. Atrial fibrillation/ Bradycardia/ Sinus pauses HR has been in the 30s at times and the pt has had 2-3 second pauses on telemetry. - hold Cardizem. Improved. - awaiting cardiology consult. - telemetry. - Coumadin and heparin gtt. HTN Blood pressure has been widely fluctuating recently. Systolic over 200 at times. - hold Cardizem as above. - continue lisinopril and increase to 20 mg BID. - clonidine as needed. Other chronic medical conditions include GERD, asthma: Stable at this time and will continue home medications as indicated. DVT prophylaxis: Anticoagulation as above. SCDs. Discharge Planning Awaiting cardiology evaluation Donny Eduardo DO Apr 27, 2017 10:36
[2017-04-27] MEDS ORDERED: LISINOPRIL 10 MG TAB PO ONE (11:00)
[2017-04-27] MEDS ORDERED: MECLIZINE HCL 25 MG TAB PO PRN (11:00)
[2017-04-27] MEDS ORDERED: cloNIDine HCL 0.1 MG TAB PO PRN (12:00)
[2017-04-27] MEDS: HEPARIN-D5W 25,000 U/250 ML 250 ML IV PRN (12:42)
[2017-04-27] MEDS: WARFARIN SOD 6 MG TAB PO SCH (16:18)
--- NOTE | 2017-04-27 16:34 | MB ---
cc: DENA MOYER M.D., HUMAYUN A. M.D. DATE OF CONSULTATION: 04/27/2017. REASON FOR CONSULTATION: HISTORY OF PRESENT ILLNESS: Thank you, Dr. Cai, for asking us to see this very pleasant 76-year-old female who has a history of atrial fibrillation, vertebral artery occlusion, CVA, hypertension, vertigo, GERD and asthma who presented as a stroke alert with weakness on her left side involving primarily her leg. She declined tPA and was placed on heparin and overall has improved significantly, although her leg is still weak. She is having some dysarthria, although this apparently has improved. She recognized the undersigned and discussed her regular nursing home director, Dr. Moyer. She apparently was told about three years ago that she may need to go on an anticoagulant but was understandably resistant at that time and apparently she has paroxysmal atrial fibrillation as she is back in sinus rhythm. PAST MEDICAL HISTORY: Her past medical history is positive for: 1. Atrial fibrillation with right bundle-branch block. 2. Vertebral artery occlusion. 3. CVA. 4. Hypertension. 5. Vertigo. 6. Gastroesophageal reflux disease (GERD). 7. Appendectomy. 8. Cholecystectomy. 9. Brest surgery. 10. Temporal artery biopsy. ALLERGIES: 1. AMLODIPINE. 2. ATENOLOL. 3. CARVEDILOL. 4. LABETALOL. 5. MULTIPLE OTHER MEDICATIONS. MEDICATIONS: At this time, she is doing relatively well on her current medications of: 1. Lisinopril. 2. Antivert. 3. Aspirin. 4. Cardizem. PHYSICAL EXAMINATION: VITAL SIGNS: On examination, this is an obese female. VITAL SIGNS: Her pulse is 69, blood pressure was markedly elevated at 190/74 with respirations of 19. HEAD, EYES, EARS, NOSE, THROAT: Eyes show no xanthelasma. Mouth shows no cyanosis or pallor. NECK: No jugular venous distention. HEART: She had two heart sounds. Soft systolic murmur. CHEST: Clear. ABDOMEN: Abdomen was hugely obese. EXTREMITIES: Legs were quite large. No obvious edema. There was some weakness of the left leg. NEUROLOGICAL EXAMINATION: There was some dysarthria neurologically although her arm strength appeared to be normal. IMAGING STUDIES: Brain MRI showed no acute disease. Carotid ultrasound was negative. Head CT was negative. ASSESSMENT AND PLAN: At this point, she appears to be improving from her stroke problems. Her atrial fibrillation has now reverted to normal sinus rhythm. She is to remain on her current medications. Her echocardiogram apparently showed normal left ventricular ejection fraction. We will control her rate and try to keep her in sinus rhythm. She will start anticoagulation. She has been started on warfarin. Follow up will be by her regular nursing home director who will decide if she needs any further workup. Thank you kindly for asking us to see this very pleasant lady. Steve Montalvo MD, FRCP,[facility] /2:58 PM /4:23 PM
[2017-04-27] MEDS: LISINOPRIL 20 MG TAB PO SCH (20:28)
[2017-04-28] VITALS (8 sets, daily range): BP systolic 114–179; BP diastolic 56–80; PULSE 59–77; RESP 17–22; TEMP 97.6–98.4; O2SAT 92–97
[2017-04-28] MEDS: HEPARIN-D5W 25,000 U/250 ML 250 ML IV PRN (05:53)
[2017-04-28] MEDS: INSULIN ASPART SUPPLEMENTAL SCALE SQ SCH (05:54)
[2017-04-28 08:19] LABS: APTT (PATIENT) 50.2 SEC (24.3-30.1); INTERNATIONAL NORMALIZED RATIO 1.4 RATIO; PROTHROMBIN TIME - PATIENT 16.2 SEC (9.8-11.6)
[2017-04-28] MEDS: LISINOPRIL 20 MG TAB PO SCH ×2 (08:50→22:01)
[2017-04-28] MEDS: SODIUM CHLORIDE 0.9% FLUSH 5 ML FLUSH IV FLUSH SCH ×2 (08:50→22:02)
--- NOTE | 2017-04-28 10:19 | RADRPT ---
EXAM DATE/TIME: 04/28/2017 09:56 [place] COMPARISON: CT BRAIN W/O CONTRAST, April 24, 2017, 23:16. INDICATIONS : Follow up TIA. Weakness this morning. RADIATION DOSE: 39.69 CTDIvol (mGy) MEDICAL HISTORY : Hypertension. Seizures. Atrial fibrillation. SURGICAL HISTORY : None. ENCOUNTER: Subsequent ACUITY: 3 days PAIN SCALE: 0/10 LOCATION: cranial TECHNIQUE: Multiple contiguous axial images were obtained of the head. Using automated exposure control and adj ustment of the mA and/or kV according to patient size, radiation dose was kept as low as reasonably a chievable to obtain optimal diagnostic quality images. DICOM format image data is available electro nically for review and comparison. FINDINGS: CEREBRUM: The ventricles are normal for age. No evidence of midline shift, mass lesion, hemorrhage or acute in farction. No extra-axial fluid collections are seen. POSTERIOR FOSSA: The cerebellum and brainstem are intact. The 4th ventricle is midline. The cerebellopontine angle i s unremarkable. EXTRACRANIAL: The visualized portion of the orbits is intact. SKULL: The calvaria is intact. No evidence of skull fracture. CONCLUSION: Normal examination. Tez Vanessa MD on April 28, 2017 at 10:17 Board Certified Radiologist. This report was verified electronically.
--- NOTE | 2017-04-28 13:16 | PD.CARD.PN ---
Subjective Subjective Remarks The patient denies CP. She had headache and left arm pain associated with accelerated hypertension. BP improved with modification of therapy. Tele rate controlled atrial fibrillation. No further pauses overnight. Had up to 2.4 second R-R pauses that night before. Continues on heparin/warfarin bridge. Continues to have dorsiflexion weakness of left lower extremity. (Radha Brown) Objective Medications Current Medications Medications (Trade) Dose Ordered Sig/Sussy Route Start Time Stop Time Status Last Admin Heparin Sodium/ Dextrose 250 ml @ 0 mls/hr TITRATE PRN IV 04/24/17 23:45 04/28/17 05:53 (Narcan Inj) 0.4 mg UNSCH PRN IV 04/25/17 00:45 (NS Flush) 2 ml BID IV FLUSH 04/25/17 21:00 04/28/17 08:50 (NS Flush) 2 ml UNSCH PRN IV FLUSH 04/25/17 10:30 (D50w (Vial) Inj) 50 ml UNSCH PRN IV PUSH 04/25/17 10:30 (Glucagon Inj) 1 mg UNSCH PRN OTHER 04/25/17 10:30 (Duoneb Neb) 1 ampule Q4HR NEB PRN NEB 04/25/17 10:30 Pharmacy Profile Note 0 ml @ 0 mls/hr UNSCH OTHER 04/25/17 11:00 (Cardizem Cd) 240 mg DAILY PO 04/25/17 19:15 Future Hold 04/25/17 21:38 (Coumadin) 6 mg DAILY@1600 PO 04/26/17 16:00 04/27/17 16:18 (Prinivil) 20 mg BID PO 04/27/17 21:00 04/28/17 08:50 (Catapres) 0.1 mg Q6HR PRN PO 04/27/17 12:00 (Antivert) 25 mg Q8H PRN PO 04/27/17 11:00 Vital Signs / I&O Vital Signs Date Time Temp Pulse Resp B/P (MAP) Pulse Ox O2 Delivery O2 Flow Rate FiO2 04/28/17 09:04 59 04/28/17 08:00 97.6 62 17 165/67 (99) 97 04/28/17 04:00 97.8 77 22 177/80 (112) 92 04/28/17 00:00 98.4 77 20 179/77 (111) 94 04/27/17 21:00 76 04/27/17 19:45 96.1 68 198/74 (115) 96 04/27/17 19:40 96.0 68 198/74 (115) 96 04/27/17 18:07 98 04/27/17 16:00 97.3 64 19 148/68 (94) 97 I/O 04/27/17 04/27/17 04/27/17 04/28/17 04/28/17 04/28/17 07:00 15:00 23:00 07:00 15:00 23:00 Intake Total 240 ml 807.8 ml 76.1 ml 120 ml Balance 240 ml 807.8 ml 76.1 ml 120 ml Intake Oral 240 ml 480 ml 120 ml IV Total 327.8 ml 76.1 ml # Voids 2 5 1 # Bowel Movements 2 Physical Exam GENERAL: Obese female, NAD SKIN: Warm and dry. HEAD: Normocephalic. EYES: No scleral icterus. No injection or drainage. NECK: Supple, trachea midline. No JVD or lymphadenopathy. CARDIOVASCULAR: Irreg Irreg, reg rate RESPIRATORY: Breath sounds equal bilaterally. No accessory muscle use. GASTROINTESTINAL: Abdomen soft, non-tender, nondistended. MUSCULOSKELETAL: No cyanosis, or edema. Neuro: 2+ left dorsiflexion BACK: Nontender without obvious deformity. Laboratory Laboratory Tests Test 04/27/17 16:26 04/28/17 07:30 Activated Partial Thromboplast Time 42.0 SEC 50.2 SEC Prothrombin Time 16.2 SEC Prothromb Time International Ratio 1.4 RATIO Imaging Last [address] 04/28/17 0000 Signed Impressions: Service Date/Time: Friday, April 28, 2017 09:56 - CONCLUSION: Normal examination. Tez Vanessa MD (Radha Brown) Assessment and Plan Problem List: (1) Atrial fibrillation ICD Codes: I48.91 - Unspecified atrial fibrillation (2) Cerebral artery occlusion ICD Codes: I66.9 - Occlusion and stenosis of unspecified cerebral artery (3) Obesity ICD Codes: E66.9 - Obesity, unspecified (4) Hypertension ICD Codes: I10 - Essential (primary) hypertension (5) CVA (cerebral vascular accident) ICD Codes: I63.9 - Cerebral infarction, unspecified Status: Acute Assessment and Plan PLAN: Continue heparin/warfarin bridge Continue antihypertensive therapy. Permissive HTN per neurology recommendations Continue telemetry monitoring to evaluate for recurrent R-R pauses. Dr Hines will follow up tomorrow. The patient was seen and evaluated by Dr Montalvo who completed a face to face encounter, completed physical exam and participated in the evaluation and management. (Radha Brown) Assessment and Plan The exam, history, and the medical decision-making described in the above note were completed with the assistance of the mid-level provider. I reviewed and agree with the findings presented. I attest that I had a [id number] encounter with the patient on the same day, and personally performed and documented my assessment and findings in the medical record. Still has some residual weakness with dorsiflexion of the left foot (Steve Montalvo MD) Problem Qualifiers (1) CVA (cerebral vascular accident): Qualified Codes: I63.9 - Cerebral infarction, unspecified Radha Brown Apr 28, 2017 13:16 Steve Montalvo MD Apr 28, 2017 18:20
--- NOTE | 2017-04-28 15:30 | HHI.PR ---
Subjective Remarks The patient feels well. She was sleeping with CPAP on. She said that she had some strange symptoms when her blood pressure was elevated earlier on. She said her primary care doctor was working hard to control her blood pressure. She has been having bowel movements. She was curious about her Coumadin level. Objective Vitals Vital Signs Date Time Temp Pulse Resp B/P (MAP) Pulse Ox O2 Delivery O2 Flow Rate FiO2 04/28/17 12:00 97.7 60 17 114/56 (75) 96 04/28/17 09:04 59 04/28/17 08:00 97.6 62 17 165/67 (99) 97 04/28/17 04:00 97.8 77 22 177/80 (112) 92 04/28/17 00:00 98.4 77 20 179/77 (111) 94 04/27/17 21:00 76 04/27/17 19:45 96.1 68 198/74 (115) 96 04/27/17 19:40 96.0 68 198/74 (115) 96 04/27/17 18:07 98 04/27/17 16:00 97.3 64 19 148/68 (94) 97 I/O 04/27/17 04/27/17 04/27/17 04/28/17 04/28/17 04/28/17 07:00 15:00 23:00 07:00 15:00 23:00 Intake Total 240 ml 807.8 ml 76.1 ml 120 ml Balance 240 ml 807.8 ml 76.1 ml 120 ml Intake Oral 240 ml 480 ml 120 ml IV Total 327.8 ml 76.1 ml # Voids 2 5 1 # Bowel Movements 2 Result Diagram: 04/27/17 0133 04/26/17 0250 Imaging Last Impressions Head CT 04/28/17 0000 Signed Impressions: Service Date/Time: Friday, April 28, 2017 09:56 - CONCLUSION: Normal examination. Tez Vanessa MD Head Magnetic Resonance Angiography 04/25/17 0000 Signed Impressions: Service Date/Time: Tuesday, April 25, 2017 19:12 - CONCLUSION: No acute disease. Imtiaz Gonzalez MD Carotid Artery Ultrasound 04/25/17 0000 Signed Impressions: Service Date/Time: Tuesday, April 25, 2017 16:12 - CONCLUSION: Negative for hemodynamically significant stenosis. Jonathan Kurtz MD FACR Brain MRI 04/25/17 0000 Signed Impressions: Service Date/Time: Tuesday, April 25, 2017 19:12 - CONCLUSION: No acute disease. Imtiaz Gonzalez MD Objective Remarks GENERAL: Well-developed well-nourished. Morbidly obese. In no acute distress. SKIN: Warm and dry. No lesions noted. HEENT: Normocephalic. Pupils equal and round. Mucous membranes pink and moist. CARDIOVASCULAR: Irregular rate and rhythm. No murmur appreciated. RESPIRATORY: No accessory muscle use. Clear to auscultation. Breath sounds equal bilaterally. GASTROINTESTINAL: Abdomen soft, non-tender, nondistended. Bowel sounds x4. MUSCULOSKELETAL: No obvious deformities. No clubbing or cyanosis. TR edema. NEUROLOGICAL: Awake and alert. Normal speech with rare expressive aphasia. No facial asymmetry. Sensation grossly intact. Left upper/ lower extremity strength 4/5. Normal strength on the right. PSYCHIATRIC: Appropriate mood and affect; insight and judgment normal. Medications and IVs Current Medications Medications (Trade) Dose Ordered Sig/Sussy Route Start Time Stop Time Status Last Admin Heparin Sodium/ Dextrose 250 ml @ 0 mls/hr TITRATE PRN IV 04/24/17 23:45 04/28/17 05:53 (Narcan Inj) 0.4 mg UNSCH PRN IV 04/25/17 00:45 (NS Flush) 2 ml BID IV FLUSH 04/25/17 21:00 04/28/17 08:50 (NS Flush) 2 ml UNSCH PRN IV FLUSH 04/25/17 10:30 (D50w (Vial) Inj) 50 ml UNSCH PRN IV PUSH 04/25/17 10:30 (Glucagon Inj) 1 mg UNSCH PRN OTHER 04/25/17 10:30 (Duoneb Neb) 1 ampule Q4HR NEB PRN NEB 04/25/17 10:30 Pharmacy Profile Note 0 ml @ 0 mls/hr UNSCH OTHER 04/25/17 11:00 (Cardizem Cd) 240 mg DAILY PO 04/25/17 19:15 Future Hold 04/25/17 21:38 (Coumadin) 6 mg DAILY@1600 PO 04/26/17 16:00 04/27/17 16:18 (Prinivil) 20 mg BID PO 04/27/17 21:00 04/28/17 08:50 (Catapres) 0.1 mg Q6HR PRN PO 04/27/17 12:00 (Antivert) 25 mg Q8H PRN PO 04/27/17 11:00 A/P Assessment and Plan 76-year-old female with a past medical history of A. fib, vertebral artery occlusion, CVA, MRA, HTN, vertigo, GERD, bronchial asthma who presented as a stroke alert Acute CVA Patient still with profound left-sided weakness. Head CT showed no acute intracranial process. Neurology consulted, appreciate input. Carotid US, echo, and MRI brain unremarkable. LDL 98, A1c 5.8%. - On heparin gtt, started Coumadin. D/c ASA. - PT/OT/ST. Will need HHC. Atrial fibrillation/ Bradycardia/ Sinus pauses HR has been in the 30s at times and the pt has had 2-3 second pauses on telemetry. Cardiology consult appreciated. - d/c Cardizem. Improved. - telemetry. - Coumadin and heparin gtt. - follow up with cardiology in AM. HTN Blood pressure has been widely fluctuating recently. Systolic over 200 at times. Improved 04/28. - hold Cardizem as above. - continue lisinopril at 20 mg BID. - clonidine as needed. TAIWO The pt has her home CPAP at the bedside. - continue CPAP. DVT prophylaxis: Anticoagulation as above. SCDs. Discharge Planning Awaiting cardiology clearance. Hopefully in AM with [facility]. Donny Eduardo DO Apr 28, 2017 15:30
[2017-04-28] MEDS: WARFARIN SOD 6 MG TAB PO SCH (16:33)
[2017-04-29] VITALS (8 sets, daily range): BP systolic 137–175; BP diastolic 61–75; PULSE 53–86; RESP 16–18; TEMP 97.4–97.9; O2SAT 93–97
[2017-04-29] MEDS: HEPARIN-D5W 25,000 U/250 ML 250 ML IV PRN ×2 (00:31→19:05)
--- NOTE | 2017-04-29 08:08 | PD.CARD.PN ---
Subjective Subjective Remarks Doing better. Left sided weakness improving slowly. No CP, palpitations or SOB at rest. Abulating with walker and assistance. Objective Medications Current Medications Medications (Trade) Dose Ordered Sig/Sussy Route PRN Reason Start Time Stop Time Status Last Admin Dose Admin Heparin Sodium/ Dextrose 250 ml @ 0 mls/hr TITRATE PRN IV Coagulation management 04/24/17 23:45 04/29/17 00:31 Naloxone HCl (Narcan Inj) 0.4 mg UNSCH PRN IV SEE LABEL COMMENTS 04/25/17 00:45 IV Flush (NS Flush) 2 ml BID IV FLUSH 04/25/17 21:00 04/28/17 08:50 IV Flush (NS Flush) 2 ml UNSCH PRN IV FLUSH FLUSH AFTER USING IV ACCESS 04/25/17 10:30 Dextrose (D50w (Vial) Inj) 50 ml UNSCH PRN IV PUSH HYPOGLYCEMIA-SEE COMMENTS 04/25/17 10:30 Glucagon (Glucagon Inj) 1 mg UNSCH PRN OTHER HYPOGLYCEMIA-SEE COMMENTS 04/25/17 10:30 Albuterol/ Ipratropium (Duoneb Neb) 1 ampule Q4HR NEB PRN NEB SOB/WHEEZING 04/25/17 10:30 Pharmacy Profile Note 0 ml @ 0 mls/hr UNSCH OTHER 04/25/17 11:00 Diltiazem HCl (Cardizem Cd) 240 mg DAILY PO 04/25/17 19:15 Future Hold 04/25/17 21:38 Warfarin Sodium (Coumadin) 6 mg DAILY@1600 PO 04/26/17 16:00 04/28/17 16:33 Lisinopril (Prinivil) 20 mg BID PO 04/27/17 21:00 04/28/17 22:01 Clonidine (Catapres) 0.1 mg Q6HR PRN PO SBP> OR = 180, DBP> OR = 100 04/27/17 12:00 Meclizine HCl (Antivert) 25 mg Q8H PRN PO dizziness/ nausea 04/27/17 11:00 Vital Signs / I&O Vital Signs Date Time Temp Pulse Resp B/P (MAP) Pulse Ox O2 Delivery O2 Flow Rate FiO2 04/29/17 05:03 97.4 64 17 141/65 (90) 96 04/29/17 00:55 97.4 66 18 163/69 (100) 93 04/28/17 21:16 21 04/28/17 20:25 97.6 63 126/58 (80) 97 04/28/17 19:20 68 04/28/17 16:00 98.1 65 17 172/72 (105) 96 04/28/17 12:00 97.7 60 17 114/56 (75) 96 04/28/17 09:04 59 I/O 04/28/17 04/28/17 04/28/17 04/29/17 04/29/17 04/29/17 06:59 14:59 22:59 06:59 14:59 22:59 Intake Total 120 ml 720 ml 94.9 ml 120 ml Balance 120 ml 720 ml 94.9 ml 120 ml Intake Oral 120 ml 720 ml 120 ml IV Total 94.9 ml # Voids 1 7 2 Physical Exam VSS, afebrile. Lungs: CTA Heart: Irreg, S1, S2 Ext: No edema. Laboratory Laboratory Tests Test 04/24/17 23:10 04/25/17 03:00 04/25/17 18:15 04/26/17 02:50 Bedside Hemoglobin 13.9 G/DL Bedside Hematocrit 41.0 % Fibrinogen 449 mg/dL Bedside Sodium 139 MMOL/L Bedside Potassium 4.2 MMOL/L Bedside Chloride 107 MMOL/L Bedside Blood Urea Nitrogen 17 MG/DL Bedside Creatinine 1.1 MG/DL Bedside Glucose 113 MG/DL Total Creatine Kinase 64 U/L Troponin I LESS THAN 0.02 NG/ML Urine Color LIGHT-YELLOW Urine Turbidity CLEAR Urine pH 6.0 Urine Specific [place] 1.004 Urine Protein NEG mg/dL Urine Glucose (UA) NEG mg/dL Urine Ketones NEG mg/dL Urine Occult Blood NEG Urine Nitrite NEG Urine Bilirubin NEG Urine Urobilinogen LESS THAN 2.0 MG/DL Urine Leukocyte Esterase NEG Urine WBC 1 /hpf Urine Squamous Epithelial Cells <1 /hpf Urine Bacteria OCC /hpf Urine Mucus FEW /lpf Urine Opiates Screen NEG Urine Barbiturates Screen NEG Urine Amphetamines Screen NEG Urine Benzodiazepines Screen NEG Urine Cocaine Screen NEG Urine Cannabinoids Screen NEG Hemoglobin A1c 5.8 % Neutrophils (%) (Auto) 66.7 % Lymphocytes (%) (Auto) 21.7 % Monocytes (%) (Auto) 10.0 % Eosinophils (%) (Auto) 1.0 % Basophils (%) (Auto) 0.6 % Neutrophils # (Auto) 6.5 TH/MM3 Lymphocytes # (Auto) 2.1 TH/MM3 Monocytes # (Auto) 1.0 TH/MM3 Eosinophils # (Auto) 0.1 TH/MM3 Basophils # (Auto) 0.1 TH/MM3 CBC Comment DIFF FINAL Differential Comment Blood Urea Nitrogen 10 MG/DL Creatinine 0.86 MG/DL Random Glucose 106 MG/DL Calcium Level 8.8 MG/DL Sodium Level 142 MEQ/L Potassium Level 3.8 MEQ/L Chloride Level 108 MEQ/L Carbon Dioxide Level 24.7 MEQ/L Anion Gap 9 MEQ/L Estimat Glomerular Filtration Rate 64 ML/MIN Triglycerides Level 116 MG/DL Cholesterol Level 164 MG/DL LDL Cholesterol 98 MG/DL HDL Cholesterol 42.9 MG/DL Cholesterol/HDL Ratio 3.82 RATIO Test 04/27/17 01:33 04/28/17 07:30 White Blood Count 9.6 TH/MM3 Red Blood Count 4.62 MIL/MM3 Hemoglobin 12.7 GM/DL Hematocrit 39.2 % Mean Corpuscular Volume 84.9 FL Mean Corpuscular Hemoglobin 27.5 PG Mean Corpuscular Hemoglobin Concent 32.4 % Red Cell Distribution Width 15.5 % Platelet Count 184 TH/MM3 Mean Platelet Volume 9.1 FL Prothrombin Time 16.2 SEC Prothromb Time International Ratio 1.4 RATIO Activated Partial Thromboplast Time 50.2 SEC Imaging Last [address] 04/28/17 0000 Signed Impressions: Service Date/Time: Friday, April 28, 2017 09:56 - CONCLUSION: Normal examination. Tez Vanessa MD Assessment and Plan Problem List: (1) Atrial fibrillation ICD Codes: I48.91 - Unspecified atrial fibrillation (2) Cerebral artery occlusion ICD Codes: I66.9 - Occlusion and stenosis of unspecified cerebral artery (3) Obesity ICD Codes: E66.9 - Obesity, unspecified (4) Hypertension ICD Codes: I10 - Essential (primary) hypertension (5) CVA (cerebral vascular accident) ICD Codes: I63.9 - Cerebral infarction, unspecified Status: Acute Assessment and Plan Patient had previously declined recommendations for halfway anticoagulat therapy. She has now agreed to take it going forward. Check INR this AM and get INR 2-3 seconds prior to discharge. VR controlled will leave off Cardizem for now and restart at 180 mg daily if HR needs control. Home with home health care and PT in 24-48 hours anticipated. Discussed Condition With Patient and staff midwife/apprenticeship director. Problem Qualifiers (1) CVA (cerebral vascular accident): Qualified Codes: I63.9 - Cerebral infarction, unspecified Macario Moyer MD Apr 29, 2017 08:08
[2017-04-29] MEDS: SODIUM CHLORIDE 0.9% FLUSH 5 ML FLUSH IV FLUSH SCH ×2 (08:57→19:51)
[2017-04-29] MEDS: LISINOPRIL 20 MG TAB PO SCH ×2 (11:29→19:52)
[2017-04-29 11:37] LABS: APTT (PATIENT) 39.6 SEC (24.3-30.1); PROTHROMBIN TIME - PATIENT 22.6 SEC (9.8-11.6)
--- NOTE | 2017-04-29 12:24 | HHI.DCPOC ---
Discharge Care Plan Diagnosis: (1) Obesity (2) Hypertension (3) CVA (cerebral vascular accident) (4) Atrial fibrillation Goals to Promote Your Health * To prevent worsening of your condition and complications * To maintain your health at the optimal level Directions to Meet Your Goals Take your medications as prescribed Follow your dietary instruction Follow activity as directed Keep your appointments as scheduled Take your immunizations and boosters as scheduled If your symptoms worsen call your PCP, if no PCP go to Urgent Care Center or Emergency Room Smoking is Dangerous to Your Health. Avoid second hand smoke Call the 24-hour hour crisis hotline for domestic abuse at Donny Eduardo DO Apr 29, 2017 12:24
--- NOTE | 2017-04-29 12:24 | HHI.PR ---
Subjective Remarks The patient was feeling well. She said she discussed with her binder chainstitch earlier. She was hoping to go home tomorrow. She has been having bowel movements. Family at the bedside. Objective Vitals Vital Signs Date Time Temp Pulse Resp B/P (MAP) Pulse Ox O2 Delivery O2 Flow Rate FiO2 04/29/17 12:07 53 04/29/17 09:28 97 21 04/29/17 05:03 97.4 64 17 141/65 (90) 96 04/29/17 00:55 97.4 66 18 163/69 (100) 93 04/28/17 21:16 21 04/28/17 20:25 97.6 63 126/58 (80) 97 04/28/17 19:20 68 04/28/17 16:00 98.1 65 17 172/72 (105) 96 I/O 04/28/17 04/28/17 04/28/17 04/29/17 04/29/17 04/29/17 07:00 15:00 23:00 07:00 15:00 23:00 Intake Total 120 ml 720 ml 94.9 ml 120 ml Balance 120 ml 720 ml 94.9 ml 120 ml Intake Oral 120 ml 720 ml 120 ml IV Total 94.9 ml # Voids 1 7 2 Result Diagram: 04/27/17 0133 04/26/17 0250 Imaging Last Impressions Head CT 04/28/17 0000 Signed Impressions: Service Date/Time: Friday, April 28, 2017 09:56 - CONCLUSION: Normal examination. Tez Vanessa MD Head Magnetic Resonance Angiography 04/25/17 0000 Signed Impressions: Service Date/Time: Tuesday, April 25, 2017 19:12 - CONCLUSION: No acute disease. Imtiaz Gonzalez MD Carotid Artery Ultrasound 04/25/17 0000 Signed Impressions: Service Date/Time: Tuesday, April 25, 2017 16:12 - CONCLUSION: Negative for hemodynamically significant stenosis. Jonathan Kurtz MD FACR Brain MRI 04/25/17 0000 Signed Impressions: Service Date/Time: Tuesday, April 25, 2017 19:12 - CONCLUSION: No acute disease. Imtiaz Gonzalez MD Objective Remarks GENERAL: Well-developed well-nourished. Morbidly obese. In no acute distress. SKIN: Warm and dry. No lesions noted. HEENT: Normocephalic. Pupils equal and round. Mucous membranes pink and moist. CARDIOVASCULAR: Irregular rate and rhythm. No murmur appreciated. RESPIRATORY: No accessory muscle use. Clear to auscultation. Breath sounds equal bilaterally. GASTROINTESTINAL: Abdomen soft, non-tender, nondistended. Bowel sounds x4. MUSCULOSKELETAL: No obvious deformities. No clubbing or cyanosis. TR edema. NEUROLOGICAL: Awake and alert. Normal speech with rare expressive aphasia. No facial asymmetry. Sensation grossly intact. Left upper/ lower extremity strength 4/5. Normal strength on the right. PSYCHIATRIC: Appropriate mood and affect; insight and judgment normal. Medications and IVs Current Medications Medications (Trade) Dose Ordered Sig/Sussy Route Start Time Stop Time Status Last Admin Heparin Sodium/ Dextrose 250 ml @ 0 mls/hr TITRATE PRN IV 04/24/17 23:45 04/29/17 00:31 (Narcan Inj) 0.4 mg UNSCH PRN IV 04/25/17 00:45 (NS Flush) 2 ml BID IV FLUSH 04/25/17 21:00 04/29/17 08:57 (NS Flush) 2 ml UNSCH PRN IV FLUSH 04/25/17 10:30 (D50w (Vial) Inj) 50 ml UNSCH PRN IV PUSH 04/25/17 10:30 (Glucagon Inj) 1 mg UNSCH PRN OTHER 04/25/17 10:30 (Duoneb Neb) 1 ampule Q4HR NEB PRN NEB 04/25/17 10:30 Pharmacy Profile Note 0 ml @ 0 mls/hr UNSCH OTHER 04/25/17 11:00 (Cardizem Cd) 240 mg DAILY PO 04/25/17 19:15 Future Hold 04/25/17 21:38 (Coumadin) 6 mg DAILY@1600 PO 04/26/17 16:00 04/28/17 16:33 (Prinivil) 20 mg BID PO 04/27/17 21:00 04/29/17 11:29 (Catapres) 0.1 mg Q6HR PRN PO 04/27/17 12:00 (Antivert) 25 mg Q8H PRN PO 04/27/17 11:00 A/P Assessment and Plan 76-year-old female with a past medical history of A. fib, vertebral artery occlusion, CVA, MRA, HTN, vertigo, GERD, bronchial asthma who presented as a stroke alert Acute CVA Patient still with profound left-sided weakness. Head CT showed no acute intracranial process. Neurology consulted, appreciate input. Carotid US, echo, and MRI brain unremarkable. LDL 98, A1c 5.8%. - On heparin gtt, started Coumadin. INR 2 04/29. D/c heparin gtt. - PT/OT/ST. Will need HHC. Atrial fibrillation/ Bradycardia/ Sinus pauses HR has been in the 30s at times and the pt has had 2-3 second pauses on telemetry. Cardiology consult appreciated. - d/c Cardizem. Improved. - telemetry. - Coumadin. - follow up with cardiology in AM. They may want to resume Cardizem at a lower dose prior to discharge. HTN Blood pressure has been widely fluctuating recently. Systolic over 200 at times. Improved 04/29. - hold Cardizem as above. - continue lisinopril at 20 mg BID. - clonidine as needed. TAIWO The pt has her home CPAP at the bedside. - continue CPAP. DVT prophylaxis: Anticoagulation as above. SCDs. Discharge Planning Awaiting cardiology clearance. May need to resume Cardizem at a lower dose prior to d/c. Hopefully in AM with HHC. Donny Eduardo DO Apr 29, 2017 12:24
[2017-04-29] MEDS ORDERED: BARIATRIC ROLLA1 MIS (12:32)
[2017-04-29] MEDS ORDERED: GETGO ROLLING W1 MI1 (12:32)
[2017-04-30] VITALS (8 sets, daily range): BP systolic 146–183; BP diastolic 63–82; PULSE 55–78; RESP 16–22; TEMP 97.5–98.4; O2SAT 94–96
--- NOTE | 2017-04-30 06:58 | PD.CARD.PN ---
Subjective Subjective Remarks Feeling better wants to go home. No CP or SOB. HR controlled still some bradycardia at time but no significant pauses. Objective Medications Current Medications Medications (Trade) Dose Ordered Sig/Sussy Route PRN Reason Start Time Stop Time Status Last Admin Dose Admin Naloxone HCl (Narcan Inj) 0.4 mg UNSCH PRN IV SEE LABEL COMMENTS 04/25/17 00:45 IV Flush (NS Flush) 2 ml BID IV FLUSH 04/25/17 21:00 04/29/17 08:57 IV Flush (NS Flush) 2 ml UNSCH PRN IV FLUSH FLUSH AFTER USING IV ACCESS 04/25/17 10:30 Dextrose (D50w (Vial) Inj) 50 ml UNSCH PRN IV PUSH HYPOGLYCEMIA-SEE COMMENTS 04/25/17 10:30 Glucagon (Glucagon Inj) 1 mg UNSCH PRN OTHER HYPOGLYCEMIA-SEE COMMENTS 04/25/17 10:30 Albuterol/ Ipratropium (Duoneb Neb) 1 ampule Q4HR NEB PRN NEB SOB/WHEEZING 04/25/17 10:30 Pharmacy Profile Note 0 ml @ 0 mls/hr UNSCH OTHER 04/25/17 11:00 Lisinopril (Prinivil) 20 mg BID PO 04/27/17 21:00 04/29/17 19:52 Clonidine (Catapres) 0.1 mg Q6HR PRN PO SBP> OR = 180, DBP> OR = 100 04/27/17 12:00 Meclizine HCl (Antivert) 25 mg Q8H PRN PO dizziness/ nausea 04/27/17 11:00 Spironolactone (Aldactone) 25 mg DAILY PO 04/30/17 09:00 Vital Signs / I&O Vital Signs Date Time Temp Pulse Resp B/P (MAP) Pulse Ox O2 Delivery O2 Flow Rate FiO2 04/30/17 06:18 97.7 78 18 148/65 (92) 95 04/30/17 01:52 98.4 55 16 159/67 (97) 94 04/29/17 21:50 97.7 86 18 175/75 (108) 94 04/29/17 17:59 84 04/29/17 12:07 53 04/29/17 12:00 97.9 70 16 137/61 (86) 96 04/29/17 09:28 97 21 04/29/17 08:00 97.5 73 16 165/69 (101) 95 I/O 04/29/17 04/29/17 04/29/17 04/30/17 04/30/17 04/30/17 07:00 15:00 23:00 07:00 15:00 23:00 Intake Total 120 ml 600 ml 310 ml 120 ml Balance 120 ml 600 ml 310 ml 120 ml Intake Oral 120 ml 600 ml IV Total 310 ml 120 ml # Voids 2 3 2 # Bowel Movements 0 Physical Exam VSS, afebrile. BP still running high at times. HR controlled. Lungs: CTA Heart: Irreg, S1, S2 Ext: No edema. Laboratory Laboratory Tests Test 04/29/17 09:27 Prothrombin Time 22.6 SEC Prothromb Time International Ratio 2.0 RATIO Activated Partial Thromboplast Time 39.6 SEC Assessment and Plan Problem List: (1) Atrial fibrillation ICD Codes: I48.91 - Unspecified atrial fibrillation Plan: Ventricular rated controlled, off diltiezem. (2) Cerebral artery occlusion ICD Codes: I66.9 - Occlusion and stenosis of unspecified cerebral artery (3) Obesity ICD Codes: E66.9 - Obesity, unspecified (4) Hypertension ICD Codes: I10 - Essential (primary) hypertension Plan: Needs more aggressive control. (5) CVA (cerebral vascular accident) ICD Codes: I63.9 - Cerebral infarction, unspecified Status: Acute Assessment and Plan Patient had previously declined recommendations for senior care anticoagulant therapy. She has now agreed to take it going forward. Continue warfarin INR therapeutic now and off IV heparin. VR controlled will leave off Cardizem for now but need better HTN control. Intolerances to many meds noted. Will try spironolactone 25 mg daily. Continue lisinopril. Needs to focus on significant weight loss. Home with home health care and PT today OK with me. F/U with me in 1-2 weeks. Code Status Full Discussed Condition With Patient Problem Qualifiers (1) CVA (cerebral vascular accident): Qualified Codes: I63.9 - Cerebral infarction, unspecified Macario Moyer MD Apr 30, 2017 06:58
[2017-04-30] MEDS: LISINOPRIL 20 MG TAB PO SCH ×2 (08:48→22:41)
[2017-04-30] MEDS: SPIRONOLACTONE 25 MG TAB PO SCH (08:48)
[2017-04-30] MEDS: SODIUM CHLORIDE 0.9% FLUSH 5 ML FLUSH IV FLUSH SCH ×2 (08:49→21:00)
[2017-04-30 09:46] LABS: HEMATOCRIT 40.9 % (35.0-46.0); MEAN CELL VOLUME 83.6 FL (80.0-100.0); MEAN CORPUSCULAR HEMOGLOBIN 27.8 PG (27.0-34.0); MEAN CORPUSCULAR HGB CONC 33.3 % (32.0-36.0); PLATELET COUNT 191 TH/MM3 (150-450); RED CELL DISTRIBUTION WIDTH 15.6 % (11.6-17.2); REVIEW FLAG FINAL; WHITE BLOOD COUNT 8.6 TH/MM3 (4.0-11.0)
[2017-04-30 09:55] LABS: APTT (PATIENT) 36.2 SEC (24.3-30.1); INTERNATIONAL NORMALIZED RATIO 1.7 RATIO; PROTHROMBIN TIME - PATIENT 19.4 SEC (9.8-11.6)
[2017-04-30] MEDS ORDERED: BEDSIDE COMMODE1 MI1 (11:05)
--- NOTE | 2017-04-30 11:45 | HHI.PR ---
Subjective Remarks f/u for TIA and Coumadin bridging. patient is very concern about her stay here. She had multiple complaints about her management with staff such as getting medication late, blood being drawn at wrong site, being off heparin gtt too long. She did not understand why her heparin gtt was d/faby at 630 when her INR was not back yet. She stated that she had never said that she was anxious to go home or wanted to go home. Patient stated that she knows she needs to stay in hospital until she is therapeutic. Denied any new focal neurological deficit. Her friend is at the bedside. 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 patient stated she was able to ambulate with her walker. Objective Vitals Vital Signs Date Time Temp Pulse Resp B/P (MAP) Pulse Ox O2 Delivery O2 Flow Rate FiO2 04/30/17 10:35 76 04/30/17 08:00 97.9 77 20 183/78 (113) 95 04/30/17 06:18 97.7 78 18 148/65 (92) 95 04/30/17 01:52 98.4 55 16 159/67 (97) 94 04/29/17 21:50 97.7 86 18 175/75 (108) 94 04/29/17 17:59 84 04/29/17 12:07 53 04/29/17 12:00 97.9 70 16 137/61 (86) 96 I/O 04/29/17 04/29/17 04/29/17 04/30/17 04/30/17 04/30/17 07:00 15:00 23:00 07:00 15:00 23:00 Intake Total 120 ml 600 ml 310 ml 120 ml Balance 120 ml 600 ml 310 ml 120 ml Intake Oral 120 ml 600 ml IV Total 310 ml 120 ml # Voids 2 3 2 2 # Bowel Movements 0 0 Result Diagram: 04/30/17 0828 04/26/17 0250 Objective Remarks GENERAL: Well-developed well-nourished. Morbidly obese. In no acute distress. SKIN: Warm and dry. No lesions noted. HEENT: Normocephalic. Pupils equal and round. Mucous membranes pink and moist. CARDIOVASCULAR: Irregular rate and rhythm. No murmur appreciated. RESPIRATORY: No accessory muscle use. Clear to auscultation. Breath sounds equal bilaterally. GASTROINTESTINAL: Abdomen soft, non-tender, nondistended. Bowel sounds x4. MUSCULOSKELETAL: No obvious deformities. No clubbing or cyanosis. TR edema. NEUROLOGICAL: Awake and alert. Normal speech. No facial asymmetry. Sensation grossly intact. Left upper/ lower extremity strength 4-5/5. Normal strength on the right. PSYCHIATRIC: Appropriate mood and affect; insight and judgment normal. Medications and IVs Current Medications Sodium Chloride 1,000 ml @ 70 mls/hr [id number] ONCE IV Last administered on 01:19; Start 04/24/17 at 23:01; Stop 04/25/17 at 13:18; Status DC Sodium Chloride 500 ml @ 500 mls/hr BOLUS ONCE IV ; Start 04/24/17 at 23:45; Stop 04/25/17 at 00:44; Status DC Heparin Sodium/ Dextrose 250 ml @ 0 mls/hr TITRATE PRN IV Coagulation management Last administered on 04/29/17 19:05; Start 04/24/17 at 23:45; Stop at 06:25; Status DC Warfarin Sodium (Coumadin) 10 mg ONCE ONCE PO ; Start 04/24/17 at 23:45; Stop 04/24/17 at 23:47; Status DC Sodium Chloride (NS Flush) 2 ml UNSCH PRN IV FLUSH FLUSH AFTER USING IV ACCESS ; Start 04/25/17 at 00:45; Stop 04/25/17 at 11:47; Status DC Sodium Chloride (NS Flush) 2 ml BID IV FLUSH ; Start 04/25/17 at 09:00; Stop 04/25 at 11:47; Status DC Naloxone HCl (Narcan Inj) 0.4 mg UNSCH PRN IV SEE LABEL COMMENTS; Start at 00:45 Pantoprazole Sodium (Protonix) 20 mg DAILY PO ; Start 04/26/17 at 09:00; Stop 04/26/17 at 13:27; Status DC IV Flush (NS Flush) 2 ml BID IV FLUSH Last administered on 04/30/17 08:49; Start 04/25/17 at 21:00 IV Flush (NS Flush) 2 ml UNSCH PRN IV FLUSH FLUSH AFTER USING IV ACCESS; Start 04/25/17 at 10:30 Sodium Chloride 1,000 ml @ 70 mls/hr [id number] IV Last administered on 04/27/17 01:40; Start 04/25/17 at 10:24; Stop 04/27/17 at 10:32; Status DC Insulin Aspart (NovoLOG SUPPLEMENTAL SCALE) 1 ACHS SQ ; Start 04/25/17 at 11:00; Stop 04/28/17 at 08:49; Status DC Dextrose (D50w (Vial) Inj) 50 ml UNSCH PRN IV PUSH HYPOGLYCEMIA-SEE COMMENTS; Start 04/25/17 at 10:30 Glucagon (Glucagon Inj) 1 mg UNSCH PRN OTHER HYPOGLYCEMIA-SEE COMMENTS; Start 04/25/17 at 10:30 Albuterol/ Ipratropium (Duoneb Neb) 1 ampule Q4HR NEB PRN NEB SOB/WHEEZING; Start 04/25/17 at 10:30 Warfarin Sodium (Coumadin) 5 mg DAILY@1600 PO Last administered on 04/25/17 18: 37; Start 04/25/17 at 16:00; Stop 04/26/17 at 14:55; Status DC Pharmacy Profile Note 0 ml @ 0 mls/hr UNSCH OTHER ; Start 04/25/17 at 11:00 Patient Medication Teaching (Coumadin Booklet) 1 ONCE@1600 ONCE .XX Last administered on 04/25/17 18:37; Start 04/25/17 at 16:00; Stop 04/25/17 at 16:01; Status DC Diltiazem HCl (Cardizem Cd) 240 mg DAILY PO Last administered on 04/25/17 21:38 ; Start 04/25/17 at 19:15; Stop 04/30/17 at 06:25; Status DC Lisinopril (Prinivil) 10 mg DAILY PO ; Start 04/26/17 at 09:00; Stop 04/26/17 at 13:47; Status DC Lisinopril (Prinivil) 10 mg BID PO Last administered on 04/27/17 08:02; Start 04/26/17 at 21:00; Stop 04/27/17 at 10:17; Status DC Warfarin Sodium (Coumadin) 6 mg DAILY@1600 PO Last administered on 04/28/17 16: 33; Start 04/26/17 at 16:00; Stop 04/30/17 at 06:25; Status DC Lisinopril (Prinivil) 20 mg BID PO Last administered on 04/30/17 08:48; Start 04/27/17 at 21:00 Lisinopril (Prinivil) 10 mg ONCE ONCE PO Last administered on 04/27/17 10:47; Start 04/27/17 at 11:00; Stop 04/27/17 at 11:01; Status DC Clonidine (Catapres) 0.1 mg Q6HR PRN PO SBP> OR = 180, DBP> OR = 100; Start 04/27/17 at 12:00 Meclizine HCl (Antivert) 25 mg Q8H PRN PO dizziness/ nausea; Start 04/27/17 at 11:00 Spironolactone (Aldactone) 25 mg DAILY PO Last administered on 04/30/17 08:48; Start 04/30/17 at 09:00 Warfarin Sodium (Coumadin) 5 mg DAILY@1600 PO ; Start 04/30/17 at 16:00 Heparin Sodium/ Dextrose 250 ml @ 0 mls/hr TITRATE IV ; Start 04/30/17 at 11:45; Status UNV A/P Assessment and Plan 76-year-old female with a past medical history of A. fib, vertebral artery occlusion, CVA, MRA, HTN, vertigo, GERD, bronchial asthma who presented as a stroke alert TIA Patient still with profound left-sided weakness. Head CT showed no acute intracranial process. Neurology consulted, appreciate input. Carotid US, echo, and MRI brain unremarkable. LDL 98, A1c 5.8%. - INR is 1.7 today so need to restart heparin gtt since patient high risk for CVA. coumadin being dose by pharmacy. they held dose yesterday and she is scheduled to take 5 mg today. - PT/OT/ST. Will need HHC. Atrial fibrillation/ Bradycardia/ Sinus pauses HR has been in the 30s at times and the pt has had 2-3 second pauses on telemetry. Cardiology consult appreciated. - d/c Cardizem. Improved. - telemetry. - Coumadin. - circuit breaker supervisor stated d/c Cardizem. patient was cleared by circuit breaker supervisor. HTN Blood pressure has been widely fluctuating recently. - continue lisinopril at 20 mg BID. -spirolactone stated by Caul Puller. continue to monitor and adjust. - clonidine as needed. TAIWO The pt has her home CPAP at the bedside. - continue CPAP. DVT prophylaxis: Anticoagulation as above. SCDs. Discharge Planning patient must be therapeutic before discharge due to high risk for CVA. Need to remain hospitalized for bridging. all concerns addressed to patient and her friend who is at bedside to there satisfaction. She is in agreement with plan. Pia House MD Apr 30, 2017 11:45
[2017-04-30] MEDS: HEPARIN-D5W 25,000 U/250 ML 250 ML IV SCH (12:17)
[2017-04-30 15:10] LABS: APTT (PATIENT) 39.2 SEC (24.3-30.1)
[2017-04-30 15:37] LABS: INTERNATIONAL NORMALIZED RATIO 1.7 RATIO; PROTHROMBIN TIME - PATIENT 19.7 SEC (9.8-11.6)
[2017-04-30] MEDS: WARFARIN SOD 5 MG TAB PO SCH (16:23)
--- NOTE | 2017-04-30 16:23 | PD.CONS ---
Assessment and Plan Assessment Consult received per stroke protocol. EMR reviewed and MRI negative for stroke and Neurology consult notes TIA. Consult deferred due to no acute stroke. Please reconsult as needed. Lalita Woods MD Apr 30, 2017 16:23
[2017-04-30 22:29] LABS: APTT (PATIENT) 45.5 SEC (24.3-30.1)
[2017-05-01] VITALS (8 sets, daily range): BP systolic 113–173; BP diastolic 61–74; PULSE 61–72; RESP 18; TEMP 97.3–98.2; O2SAT 5–97
[2017-05-01 05:26] LABS: APTT (PATIENT) 52.7 SEC (24.3-30.1); INTERNATIONAL NORMALIZED RATIO 1.7 RATIO; PROTHROMBIN TIME - PATIENT 19.6 SEC (9.8-11.6)
[2017-05-01] MEDS: HEPARIN-D5W 25,000 U/250 ML 250 ML IV SCH (08:22)
[2017-05-01] MEDS: LISINOPRIL 20 MG TAB PO SCH ×2 (08:24→21:33)
[2017-05-01] MEDS: SPIRONOLACTONE 25 MG TAB PO SCH (08:24)
[2017-05-01] MEDS: SODIUM CHLORIDE 0.9% FLUSH 5 ML FLUSH IV FLUSH SCH ×2 (09:00→21:00)
--- NOTE | 2017-05-01 10:53 | RADRPT ---
EXAM DATE/TIME: 05/01/2017 10:35 [facility] COMPARISON: CT BRAIN W/O CONTRAST, April 28, 2017, 9:56. INDICATIONS : Headache RADIATION DOSE: 56.45 CTDIvol (mGy) MEDICAL HISTORY : Cerebrovascular disease. Seizures. SURGICAL HISTORY : None. ENCOUNTER: Initial ACUITY: 1 day PAIN SCALE: 5/10 LOCATION: cranial TECHNIQUE: Multiple contiguous axial images were obtained of the head. Using automated exposure control and adj ustment of the mA and/or kV according to patient size, radiation dose was kept as low as reasonably a chievable to obtain optimal diagnostic quality images. DICOM format image data is available electro nically for review and comparison. FINDINGS: There is no evidence for intracranial hemorrhage, mass effect, mass lesions, or edema. The visualize d bony structures appear intact. Slight degree of brain atrophy is seen. Slight periventricular whit e matter changes are seen nonspecific mostly consistent with chronic small vessel ischemic changes. There are no signs of acute infarction for technique. CONCLUSION: Slight atrophic and small vessel ischemic changes without any evidence for acute hemorrhage or mass effect. Andrew Barajas MD on May 01, 2017 at 10:47 Board Certified Radiologist. This report was verified electronically.
--- NOTE | 2017-05-01 12:05 | HHI.PR ---
Subjective Remarks f/u for TIA Patient complaining of left head pressure in the temporal area last night recurring this morning. She felt that her expressive aphasia came back and left -sided weakness return. Patient stated that it is improving. She has been very anxious and stressed out the past couple days. Headache pressure resolved. Denies any visual changes or nausea or vomiting. Patient stated that since she spoke to patient advocacy that she has been happy with the care. Objective Vitals Vital Signs Date Time Temp Pulse Resp B/P (MAP) Pulse Ox O2 Delivery O2 Flow Rate FiO2 05/01/17 08:00 98.2 66 18 161/70 (100) 95 05/01/17 07:39 61 05/01/17 06:00 97.3 61 18 143/64 (90) 92 05/01/17 00:52 97.4 65 18 149/63 (91) 97 04/30/17 21:37 98.0 78 18 146/63 (90) 95 04/30/17 20:00 67 04/30/17 18:49 97.5 70 22 150/70 (96) 96 04/30/17 12:00 98.3 74 22 161/82 (108) 96 I/O 04/30/17 04/30/17 04/30/17 05/01/17 05/01/17 05/01/17 06:59 14:59 22:59 06:59 14:59 22:59 Intake Total 120 ml 480 ml 156 ml Balance 120 ml 480 ml 156 ml Intake Oral 480 ml IV Total 120 ml 156 ml # Voids 2 2 3 2 # Bowel Movements 0 0 1 0 Result Diagram: 04/30/17 0828 Objective Remarks GENERAL: Well-developed well-nourished. Morbidly obese. In no acute distress. SKIN: Warm and dry. No lesions noted. HEENT: Normocephalic. Pupils equal and round. Mucous membranes pink and moist. CARDIOVASCULAR: Irregular rate and rhythm. No murmur appreciated. RESPIRATORY: No accessory muscle use. Clear to auscultation. Breath sounds equal bilaterally. GASTROINTESTINAL: Abdomen soft, non-tender, nondistended. Bowel sounds x4. MUSCULOSKELETAL: No obvious deformities. No clubbing or cyanosis. TR edema. NEUROLOGICAL: Awake and alert. Normal speech. No facial asymmetry. Sensation grossly intact. Left upper/ lower extremity strength 3-5/5. Normal strength on the right. PSYCHIATRIC: Appropriate mood and affect; insight and judgment normal. Stuttering. Medications and IVs Current Medications Sodium Chloride 1,000 ml @ 70 mls/hr [id number] ONCE IV Last administered on 01:19; Start 04/24/17 at 23:01; Stop 04/25/17 at 13:18; Status DC Sodium Chloride 500 ml @ 500 mls/hr BOLUS ONCE IV ; Start 04/24/17 at 23:45; Stop 04/25/17 at 00:44; Status DC Heparin Sodium/ Dextrose 250 ml @ 0 mls/hr TITRATE PRN IV Coagulation management Last administered on 04/29/17 19:05; Start 04/24/17 at 23:45; Stop at 06:25; Status DC Warfarin Sodium (Coumadin) 10 mg ONCE ONCE PO ; Start 04/24/17 at 23:45; Stop 04/24/17 at 23:47; Status DC Sodium Chloride (NS Flush) 2 ml UNSCH PRN IV FLUSH FLUSH AFTER USING IV ACCESS ; Start 04/25/17 at 00:45; Stop 04/25/17 at 11:47; Status DC Sodium Chloride (NS Flush) 2 ml BID IV FLUSH ; Start 04/25/17 at 09:00; Stop 04/25 at 11:47; Status DC Naloxone HCl (Narcan Inj) 0.4 mg UNSCH PRN IV SEE LABEL COMMENTS; Start at 00:45 Pantoprazole Sodium (Protonix) 20 mg DAILY PO ; Start 04/26/17 at 09:00; Stop 04/26/17 at 13:27; Status DC IV Flush (NS Flush) 2 ml BID IV FLUSH Last administered on 04/30/17 21:00; Start 04/25/17 at 21:00 IV Flush (NS Flush) 2 ml UNSCH PRN IV FLUSH FLUSH AFTER USING IV ACCESS; Start 04/25/17 at 10:30 Sodium Chloride 1,000 ml @ 70 mls/hr [id number] IV Last administered on 04/27/17 01:40; Start 04/25/17 at 10:24; Stop 04/27/17 at 10:32; Status DC Insulin Aspart (NovoLOG SUPPLEMENTAL SCALE) 1 ACHS SQ ; Start 04/25/17 at 11:00; Stop 04/28/17 at 08:49; Status DC Dextrose (D50w (Vial) Inj) 50 ml UNSCH PRN IV PUSH HYPOGLYCEMIA-SEE COMMENTS; Start 04/25/17 at 10:30 Glucagon (Glucagon Inj) 1 mg UNSCH PRN OTHER HYPOGLYCEMIA-SEE COMMENTS; Start 04/25/17 at 10:30 Albuterol/ Ipratropium (Duoneb Neb) 1 ampule Q4HR NEB PRN NEB SOB/WHEEZING; Start 04/25/17 at 10:30 Warfarin Sodium (Coumadin) 5 mg DAILY@1600 PO Last administered on 04/25/17 18: 37; Start 04/25/17 at 16:00; Stop 04/26/17 at 14:55; Status DC Pharmacy Profile Note 0 ml @ 0 mls/hr UNSCH OTHER ; Start 04/25/17 at 11:00 Patient Medication Teaching (Coumadin Booklet) 1 ONCE@1600 ONCE .XX Last administered on 04/25/17 18:37; Start 04/25/17 at 16:00; Stop 04/25/17 at 16:01; Status DC Diltiazem HCl (Cardizem Cd) 240 mg DAILY PO Last administered on 04/25/17 21:38 ; Start 04/25/17 at 19:15; Stop 04/30/17 at 06:25; Status DC Lisinopril (Prinivil) 10 mg DAILY PO ; Start 04/26/17 at 09:00; Stop 04/26/17 at 13:47; Status DC Lisinopril (Prinivil) 10 mg BID PO Last administered on 04/27/17 08:02; Start 04/26/17 at 21:00; Stop 04/27/17 at 10:17; Status DC Warfarin Sodium (Coumadin) 6 mg DAILY@1600 PO Last administered on 04/28/17 16: 33; Start 04/26/17 at 16:00; Stop 04/30/17 at 06:25; Status DC Lisinopril (Prinivil) 20 mg BID PO Last administered on 05/01/17 08:24; Start 04/27/17 at 21:00 Lisinopril (Prinivil) 10 mg ONCE ONCE PO Last administered on 04/27/17 10:47; Start 04/27/17 at 11:00; Stop 04/27/17 at 11:01; Status DC Clonidine (Catapres) 0.1 mg Q6HR PRN PO SBP> OR = 180, DBP> OR = 100; Start 04/27/17 at 12:00 Meclizine HCl (Antivert) 25 mg Q8H PRN PO dizziness/ nausea; Start 04/27/17 at 11:00 Spironolactone (Aldactone) 25 mg DAILY PO Last administered on 05/01/17 08:24; Start 04/30/17 at 09:00 Warfarin Sodium (Coumadin) 5 mg DAILY@1600 PO Last administered on 04/30/17 16: 23; Start 04/30/17 at 16:00 Heparin Sodium/ Dextrose 250 ml @ 12 mls/hr TITRATE IV Last administered on 08:22; Start 04/30/17 at 11:45 A/P Assessment and Plan 76-year-old female with a past medical history of A. fib, vertebral artery occlusion, CVA, MRA, HTN, vertigo, GERD, bronchial asthma who presented as a stroke alert TIA -Head CT showed no acute intracranial process. Neurology consulted, appreciate input. Carotid US, echo, and MRI brain unremarkable. LDL 98, A1c 5.8%. -Usually with TIA symptoms resolved within 24 hours. Patient had symptoms since her hospitalization and stated that it worsened today. I think there may be some psychiatric component that is causing her symptoms. May be secondary to stress. Low probability that patient had another episode of TIA since patient is on the heparin drip even is so symptoms are improving drastically and she is not a candidate for TPA. -Due to headache recurrence of symptoms a stat CT scan of the head was done which was negative for any acute process or intracranial bleed. - INR is 1.7 today. Patient received Coumadin 5 mg today. Continue with bridging with heparin drip. -Continue with neuro exams. Atrial fibrillation/ Bradycardia/ Sinus pauses HR has been in the 30s at times and the pt has had 2-3 second pauses on telemetry. Cardiology consult appreciated. - d/c Cardizem. Improved. - telemetry. - Coumadin. - casing crew stated d/c Cardizem. patient was cleared by casing crew. HTN Blood pressure has been widely fluctuating recently. - continue lisinopril at 20 mg BID. -spirolactone stated by Tooth Cutter. continue to monitor and adjust. She continues to be hypertensive at hydralazine. - clonidine as needed. TAIWO The pt has her home CPAP at the bedside. - continue CPAP. DVT prophylaxis: Anticoagulation as above. SCDs. Discharge Planning patient must be therapeutic before discharge due to high risk for CVA. Need to remain hospitalized for bridging. Pia House MD May 01, 2017 12:05
[2017-05-01] MEDS: hydrALAZINE HCL 25 MG TAB PO SCH ×2 (14:36→21:33)
[2017-05-01] MEDS: WARFARIN SOD 5 MG TAB PO SCH (15:58)
[2017-05-02] VITALS (7 sets, daily range): BP systolic 136–179; BP diastolic 59–74; PULSE 52–89; RESP 17–20; TEMP 97.4–98.1; O2SAT 94–100
[2017-05-02] MEDS: HEPARIN-D5W 25,000 U/250 ML 250 ML IV SCH (03:39)
[2017-05-02] MEDS: hydrALAZINE HCL 25 MG TAB PO SCH ×3 (06:00→22:00)
[2017-05-02] MEDS: SPIRONOLACTONE 25 MG TAB PO SCH (09:29)
[2017-05-02] MEDS: LISINOPRIL 20 MG TAB PO SCH ×2 (09:30→22:14)
[2017-05-02] MEDS: SODIUM CHLORIDE 0.9% FLUSH 5 ML FLUSH IV FLUSH SCH ×2 (09:33→21:00)
[2017-05-02 11:26] LABS: INTERNATIONAL NORMALIZED RATIO 2.1 RATIO; PROTHROMBIN TIME - PATIENT 24.4 SEC (9.8-11.6)
[2017-05-02 11:29] LABS: APTT (PATIENT) 46.1 SEC (24.3-30.1)
--- NOTE | 2017-05-02 14:08 | HHI.PR ---
Subjective Remarks Follow-up for TIA and Coumadin management Patient says she feels a lot better today. She feels like her strength has improved on the left side. Denies any headache. Patient refused to take hydralazine yesterday. I stressed to patient that blood pressure must be control due to increased risk of stroke and intracranial bleed since she is on anticoagulation. Patient stated that she understands but she is very sensitive to medication and that I need to be understanding of that. I stated to patient that I am understanding and I started a medication that she was not allergic to. She continued to refuse to take hydralazine or any other type of medication that she is currently not taking now but she stated that she will take increased dose of spironolactone. Patient also stated that she could not go home and that she does not feel safe enough to go home. Objective Vitals Vital Signs Date Time Temp Pulse Resp B/P (MAP) Pulse Ox O2 Delivery O2 Flow Rate FiO2 05/02/17 12:36 97.4 70 18 172/74 (106) 96 05/02/17 10:17 52 05/02/17 08:47 97.6 67 19 179/74 (109) 95 05/02/17 04:30 98.1 63 17 136/66 (89) 94 05/02/17 00:30 97.5 77 17 170/74 (106) 94 05/01/17 21:30 98.1 72 18 173/74 (107) 95 05/01/17 20:00 65 05/01/17 16:00 98.2 72 18 136/63 (87) 94 I/O 05/01/17 05/01/17 05/01/17 05/02/17 05/02/17 05/02/17 07:00 15:00 23:00 07:00 15:00 23:00 Intake Total 156 ml 375 ml 505 ml 78.6 ml Balance 156 ml 375 ml 505 ml 78.6 ml Intake Oral 360 ml IV Total 156 ml 375 ml 145 ml 78.6 ml # Voids 2 3 4 # Bowel Movements 0 2 Result Diagram: 04/30/17 0828 Objective Remarks GENERAL: Well-developed well-nourished. Morbidly obese. In no acute distress. SKIN: Warm and dry. No lesions noted. HEENT: Normocephalic. Pupils equal and round. Mucous membranes pink and moist. CARDIOVASCULAR: Irregular rate and rhythm. No murmur appreciated. RESPIRATORY: No accessory muscle use. Clear to auscultation. Breath sounds equal bilaterally. GASTROINTESTINAL: Abdomen soft, non-tender, nondistended. Bowel sounds x4. MUSCULOSKELETAL: No obvious deformities. No clubbing or cyanosis. TR edema. NEUROLOGICAL: Awake and alert. Normal speech. No facial asymmetry. Sensation grossly intact. Left upper/ lower extremity strength 4-5/5. Normal strength on the right. PSYCHIATRIC: Appropriate mood and affect; insight and judgment normal. Stuttering. Medications and IVs Current Medications Sodium Chloride 1,000 ml @ 70 mls/hr [id number] ONCE IV Last administered on 01:19; Start 04/24/17 at 23:01; Stop 04/25/17 at 13:18; Status DC Sodium Chloride 500 ml @ 500 mls/hr BOLUS ONCE IV ; Start 04/24/17 at 23:45; Stop 04/25/17 at 00:44; Status DC Heparin Sodium/ Dextrose 250 ml @ 0 mls/hr TITRATE PRN IV Coagulation management Last administered on 04/29/17 19:05; Start 04/24/17 at 23:45; Stop at 06:25; Status DC Warfarin Sodium (Coumadin) 10 mg ONCE ONCE PO ; Start 04/24/17 at 23:45; Stop 04/24/17 at 23:47; Status DC Sodium Chloride (NS Flush) 2 ml UNSCH PRN IV FLUSH FLUSH AFTER USING IV ACCESS ; Start 04/25/17 at 00:45; Stop 04/25/17 at 11:47; Status DC Sodium Chloride (NS Flush) 2 ml BID IV FLUSH ; Start 04/25/17 at 09:00; Stop 04/25 at 11:47; Status DC Naloxone HCl (Narcan Inj) 0.4 mg UNSCH PRN IV SEE LABEL COMMENTS; Start at 00:45 Pantoprazole Sodium (Protonix) 20 mg DAILY PO ; Start 04/26/17 at 09:00; Stop 04/26/17 at 13:27; Status DC IV Flush (NS Flush) 2 ml BID IV FLUSH Last administered on 05/02/17 09:33; Start 04/25/17 at 21:00 IV Flush (NS Flush) 2 ml UNSCH PRN IV FLUSH FLUSH AFTER USING IV ACCESS; Start 04/25/17 at 10:30 Sodium Chloride 1,000 ml @ 70 mls/hr [id number] IV Last administered on 04/27/17 01:40; Start 04/25/17 at 10:24; Stop 04/27/17 at 10:32; Status DC Insulin Aspart (NovoLOG SUPPLEMENTAL SCALE) 1 ACHS SQ ; Start 04/25/17 at 11:00; Stop 04/28/17 at 08:49; Status DC Dextrose (D50w (Vial) Inj) 50 ml UNSCH PRN IV PUSH HYPOGLYCEMIA-SEE COMMENTS; Start 04/25/17 at 10:30 Glucagon (Glucagon Inj) 1 mg UNSCH PRN OTHER HYPOGLYCEMIA-SEE COMMENTS; Start 04/25/17 at 10:30 Albuterol/ Ipratropium (Duoneb Neb) 1 ampule Q4HR NEB PRN NEB SOB/WHEEZING; Start 04/25/17 at 10:30 Warfarin Sodium (Coumadin) 5 mg DAILY@1600 PO Last administered on 04/25/17 18: 37; Start 04/25/17 at 16:00; Stop 04/26/17 at 14:55; Status DC Pharmacy Profile Note 0 ml @ 0 mls/hr UNSCH OTHER ; Start 04/25/17 at 11:00 Patient Medication Teaching (Coumadin Booklet) 1 ONCE@1600 ONCE .XX Last administered on 04/25/17 18:37; Start 04/25/17 at 16:00; Stop 04/25/17 at 16:01; Status DC Diltiazem HCl (Cardizem Cd) 240 mg DAILY PO Last administered on 04/25/17 21:38 ; Start 04/25/17 at 19:15; Stop 04/30/17 at 06:25; Status DC Lisinopril (Prinivil) 10 mg DAILY PO ; Start 04/26/17 at 09:00; Stop 04/26/17 at 13:47; Status DC Lisinopril (Prinivil) 10 mg BID PO Last administered on 04/27/17 08:02; Start 04/26/17 at 21:00; Stop 04/27/17 at 10:17; Status DC Warfarin Sodium (Coumadin) 6 mg DAILY@1600 PO Last administered on 04/28/17 16: 33; Start 04/26/17 at 16:00; Stop 04/30/17 at 06:25; Status DC Lisinopril (Prinivil) 20 mg BID PO Last administered on 05/02/17 09:30; Start 04/27/17 at 21:00 Lisinopril (Prinivil) 10 mg ONCE ONCE PO Last administered on 04/27/17 10:47; Start 04/27/17 at 11:00; Stop 04/27/17 at 11:01; Status DC Clonidine (Catapres) 0.1 mg Q6HR PRN PO SBP> OR = 180, DBP> OR = 100; Start 04/27/17 at 12:00 Meclizine HCl (Antivert) 25 mg Q8H PRN PO dizziness/ nausea; Start 04/27/17 at 11:00 Spironolactone (Aldactone) 25 mg DAILY PO Last administered on 05/02/17 09:29; Start 04/30/17 at 09:00; Stop 05/02/17 at 12:49; Status DC Warfarin Sodium (Coumadin) 5 mg DAILY@1600 PO Last administered on 05/01/17 15: 58; Start 04/30/17 at 16:00 Heparin Sodium/ Dextrose 250 ml @ 12 mls/hr TITRATE IV Last administered on 03:39; Start 04/30/17 at 11:45; Stop 05/02/17 at 12:47; Status DC Hydralazine HCl (Apresoline) 25 mg Q8HR PO ; Start 05/01/17 at 14:00 Spironolactone (Aldactone) 25 mg BID@09,18 PO ; Start 05/02/17 at 18:00 A/P Assessment and Plan 76-year-old female with a past medical history of A. fib, vertebral artery occlusion, CVA, MRA, HTN, vertigo, GERD, bronchial asthma who presented as a stroke alert TIA -Head CT showed no acute intracranial process. Neurology consulted, appreciate input. Carotid US, echo, and MRI brain unremarkable. LDL 98, A1c 5.8%. -Usually with TIA symptoms resolved within 24 hours. Patient had symptoms since her hospitalization and stated that it worsened today. I think there may be some psychiatric component that is causing her symptoms. May be secondary to stress. Low probability that patient had another episode of TIA since patient is on the heparin drip even is so symptoms are improving drastically and she is not a candidate for TPA. Patient backed her baseline. - INR is 2.1. Continue with Coumadin 5 mg by mouth daily. Discontinue heparin drip. -Continue with neuro exams. Atrial fibrillation/ Bradycardia/ Sinus pauses HR has been in the 30s at times and the pt has had 2-3 second pauses on telemetry. Cardiology consult appreciated. - d/c Cardizem. Improved. - telemetry. - Coumadin. - grading machine feeder stated d/c Cardizem. patient was cleared by grading machine feeder. HTN Blood pressure has been widely fluctuating recently. - continue lisinopril at 20 mg BID. -refused hydralazine despite knowing that her blood pressures be controlled in order to decrease risk of another stroke or intracranial bleed since she is on a blood thinner. Patient only agreed to increase spinal lactone. Will increase prolactin 25 mg by mouth twice a day. - clonidine as needed. TAIWO The pt has her home CPAP at the bedside. - continue CPAP. DVT prophylaxis: Anticoagulation as above. SCDs. Discharge Planning Patient medically stable for discharge. She does not feel like she can go home. It is recommended for patient to go home with home health. Dealt with case management unable to establish home health or any assistance. Patient will have to remain in the hospital until home health is set up. Pia House MD May 02, 2017 14:08
[2017-05-02] MEDS: WARFARIN SOD 5 MG TAB PO SCH (17:31)
[2017-05-02] MEDS ORDERED: SPIRONOLACTONE 25 MG TAB PO SCH (18:00)
[2017-05-03] VITALS (7 sets, daily range): BP systolic 136–160; BP diastolic 58–68; PULSE 58–86; RESP 18–20; TEMP 97.5–99.3; O2SAT 91–100
[2017-05-03] MEDS: hydrALAZINE HCL 25 MG TAB PO SCH ×3 (02:09→20:52)
[2017-05-03] MEDS: SODIUM CHLORIDE 0.9% FLUSH 5 ML FLUSH IV FLUSH SCH ×2 (09:00→20:59)
[2017-05-03] MEDS ORDERED: SPIRONOLACTONE 25 MG TAB PO ONE (10:00)
[2017-05-03] MEDS: LISINOPRIL 20 MG TAB PO SCH ×2 (10:02→20:59)
[2017-05-03 10:23] LABS: HEMATOCRIT 43.2 % (35.0-46.0); MEAN CORPUSCULAR HEMOGLOBIN 27.8 PG (27.0-34.0); PLATELET COUNT 200 TH/MM3 (150-450); RED BLOOD COUNT 5.14 MIL/MM3 (4.00-5.30); RED CELL DISTRIBUTION WIDTH 15.8 % (11.6-17.2); REVIEW FLAG FINAL; WHITE BLOOD COUNT 7.3 TH/MM3 (4.0-11.0)
--- NOTE | 2017-05-03 12:16 | HHI.PR ---
Review/Management Diagnosis/Plan: (1) TIA (transient ischemic attack) ICD Codes: G45.9 - Transient cerebral ischemic attack, unspecified Status: Acute Plan: left mca tia recs inr target 2.5 hydration therapy follow exam (2) Sleep apnea ICD Codes: G47.30 - Sleep apnea, unspecified Status: Chronic Plan: on cpap (3) Atrial fibrillation ICD Codes: I48.91 - Unspecified atrial fibrillation (4) Hypertension ICD Codes: I10 - Essential (primary) hypertension Status: Chronic Subjective Subjective Comments No acute events reported No headache No chest pain No dyspnea Active Medications Current Medications Medications (Trade) Dose Ordered Sig/Sussy Route Start Time Stop Time Status Last Admin (Narcan Inj) 0.4 mg UNSCH PRN IV 04/25/17 00:45 (NS Flush) 2 ml BID IV FLUSH 04/25/17 21:00 05/03/17 09:00 (NS Flush) 2 ml UNSCH PRN IV FLUSH 04/25/17 10:30 (D50w (Vial) Inj) 50 ml UNSCH PRN IV PUSH 04/25/17 10:30 (Glucagon Inj) 1 mg UNSCH PRN OTHER 04/25/17 10:30 (Duoneb Neb) 1 ampule Q4HR NEB PRN NEB 04/25/17 10:30 Pharmacy Profile Note 0 ml @ 0 mls/hr UNSCH OTHER 04/25/17 11:00 (Prinivil) 20 mg BID PO 04/27/17 21:00 05/03/17 10:02 (Catapres) 0.1 mg Q6HR PRN PO 04/27/17 12:00 (Antivert) 25 mg Q8H PRN PO 04/27/17 11:00 (Coumadin) 5 mg DAILY@1600 PO 04/30/17 16:00 05/02/17 17:31 (Apresoline) 25 mg Q8HR PO 05/01/17 14:00 (Aldactone) 50 mg BID@18 PO 05/03/17 18:00 Allergies Allergies Coded Allergies acebutolol (Unverified Allergy, Severe, 04/08/17) amlodipine (Unverified Allergy, Severe, NAUSEA,HEADACHE,VOMITING, 04/08/17) atenolol (Unverified Allergy, Severe, 04/08/17) atorvastatin (Unverified Allergy, Severe, NAUSEA,HEADACHE,VOMITING, 04/08/17) betaxolol (Unverified Allergy, Severe, 04/08/17) carvedilol (Unverified Allergy, Severe, 04/08/17) cephalexin (Unverified Allergy, Severe, 04/08/17) diltiazem (Unverified Allergy, Severe, NAUSEA,HEADACHE,VOMITING, 04/08/17) doxepin (Unverified Allergy, Severe, 04/08/17) hydrochlorothiazide (Unverified Allergy, Severe, 04/08/17) iohexol (Unverified Allergy, Severe, Code 99 - Respiratory Failure, 04/08/17) isradipine (Unverified Allergy, Severe, NAUSEA,HEADACHE,VOMITING, 04/08/17) labetalol (Unverified Allergy, Severe, 04/08/17) levothyroxine (Unverified Allergy, Severe, 04/08/17) levothyroxine sodium (Unverified Allergy, Severe, 04/08/17) medroxyprogesterone (Unverified Allergy, Severe, 04/08/17) metoprolol (Unverified Allergy, Severe, 04/08/17) monosodium glutamate (Unverified Allergy, Severe, 04/08/17) nebivolol (Unverified Allergy, Severe, 04/08/17) nicardipine (Unverified Allergy, Severe, NAUSEA,HEADACHE,VOMITING, 04/08/17) nifedipine (Unverified Allergy, Severe, NAUSEA,HEADACHE,VOMITING, 04/08/17) nimodipine (Unverified Allergy, Severe, NAUSEA,HEADACHE,VOMITING, 04/08/17) pindolol (Unverified Allergy, Severe, 04/08/17) prochlorperazine (Unverified Allergy, Severe, 04/08/17) propranolol (Unverified Allergy, Severe, 04/08/17) ranitidine (Unverified Allergy, Severe, 04/08/17) scopolamine (Unverified Allergy, Severe, 04/08/17) sotalol (Unverified Allergy, Severe, 04/08/17) ticlopidine (Unverified Allergy, Severe, 04/08/17) timolol (Unverified Allergy, Severe, 04/08/17) verapamil (Unverified Allergy, Severe, 04/08/17) MRI PRECAUTION (Verified Allergy, Mild, 10/19/11) codeine (Unverified Allergy, Mild, 04/08/17) diatrizoate meglumine (Unverified Allergy, Mild, 04/08/17) diazepam (Unverified Allergy, Mild, 04/08/17) diphenhydramine (Unverified Allergy, Mild, 04/08/17) doxazosin (Unverified Allergy, Mild, 04/08/17) gadobenic acid (Unverified Allergy, Mild, 04/08/17) gadodiamide (Unverified Allergy, Mild, 04/08/17) gadoteridol (Unverified Allergy, Mild, 04/08/17) iodixanol (Unverified Allergy, Mild, 04/08/17) phentolamine (Unverified Allergy, Mild, 04/08/17) prazosin (Unverified Allergy, Mild, 04/08/17) prednisone (Unverified Allergy, Mild, 04/08/17) terazosin (Unverified Allergy, Mild, 04/08/17) Uncoded Allergies ASPARATINE ( Allergy, Severe, 07/12/07) STERIODS ( Allergy, Severe, 07/12/07) MUCINEX ( Allergy, Mild, 10/19/11) Review of Systems All other ROS: ROS reviewed as documented in chart Exam I&O / VS Vital Signs Date Time Temp Pulse Resp B/P (MAP) Pulse Ox O2 Delivery O2 Flow Rate FiO2 05/03/17 10:59 60 05/03/17 08:34 97.5 66 18 144/68 (93) 94 05/03/17 05:06 97.5 86 18 149/66 (93) 100 05/03/17 00:04 98.7 85 20 156/58 (90) 100 05/02/17 20:50 97.7 89 20 143/59 (87) 100 05/02/17 16:17 98.0 70 18 175/73 (107) 96 05/02/17 12:36 97.4 70 18 172/74 (106) 96 General: Alert and Oriented, No acute distress Eye: EOMI Respiratory: Non-labored respirations Neurologic: Alert, Oriented, Normal motor, No focal defects, CN II-XII intact Psychiatric: Cooperative, Appropriate mood & affect Objective Micro and Labs Laboratory Tests Test 05/03/17 09:45 White Blood Count 7.3 Red Blood Count 5.14 Hemoglobin 14.3 Hematocrit 43.2 Mean Corpuscular Volume 84.0 Mean Corpuscular Hemoglobin 27.8 Mean Corpuscular Hemoglobin Concent 33.0 Red Cell Distribution Width 15.8 Platelet Count 200 Mean Platelet Volume 9.1 Problem Qualifiers (1) TIA (transient ischemic attack): Qualified Codes: G45.9 - Transient cerebral ischemic attack, unspecified (2) Atrial fibrillation: Qualified Codes: I48.2 - Chronic atrial fibrillation Ronald Miguel MD May 03, 2017 12:16
--- NOTE | 2017-05-03 15:30 | HHI.PR ---
Subjective Remarks Follow-up for TIA and Coumadin management. Pt reported her personal neurologist saw her this morning and "this made me feel better." Pt noted the increased spironolactone is making her dizzy and stated she is declining to take the increased dosage. Patient denied other acute issues. Patient denied fever, cough, shortness of breath, nausea, vomiting, diarrhea, abdominal/chest pain. Per nursing ([facility]) no acute issues noted overnight worse since start of shift. Objective Vitals Vital Signs Date Time Temp Pulse Resp B/P (MAP) Pulse Ox O2 Delivery O2 Flow Rate FiO2 05/03/17 12:00 99.3 75 18 136/60 (85) 91 05/03/17 10:59 60 05/03/17 08:34 97.5 66 18 144/68 (93) 94 05/03/17 05:06 97.5 86 18 149/66 (93) 100 05/03/17 00:04 98.7 85 20 156/58 (90) 100 05/02/17 20:50 97.7 89 20 143/59 (87) 100 05/02/17 16:17 98.0 70 18 175/73 (107) 96 I/O 05/02/17 05/02/17 05/02/17 05/03/17 05/03/17 05/03/17 06:59 14:59 22:59 06:59 14:59 22:59 Intake Total 505 ml 318.6 ml 400 ml Balance 505 ml 318.6 ml 400 ml Intake Oral 360 ml 240 ml 400 ml IV Total 145 ml 78.6 ml # Voids 4 2 1 3 Result Diagram: 05/03/17 0945 Imaging Last Impressions Head CT 05/01/17 0000 Signed Impressions: Service Date/Time: April 10:35 - CONCLUSION: Slight atrophic and small vessel ischemic changes without any evidence for acute hemorrhage or mass effect. Andrew Barajas MD Head Magnetic Resonance Angiography 04/25/17 0000 Signed Impressions: Service Date/Time: Tuesday, April 25, 2017 19:12 - CONCLUSION: No acute disease. Imtiaz Gonzalez MD Carotid Artery Ultrasound 04/25/17 0000 Signed Impressions: Service Date/Time: Tuesday, April 25, 2017 16:12 - CONCLUSION: Negative for hemodynamically significant stenosis. Jonathan Kurtz MD FACR Brain MRI 04/25/17 0000 Signed Impressions: Service Date/Time: Tuesday, April 25, 2017 19:12 - CONCLUSION: No acute disease. Imtiaz Gonzalez MD Objective Remarks GENERAL: Patient sitting in chair at bedside, NAD. SKIN: Warm and dry. HEAD: Normocephalic. EYES: No scleral icterus. No injection or drainage. NECK: Supple, trachea midline. No lymphadenopathy. CARDIOVASCULAR: Regular rate and rhythm without murmurs, gallops, or rubs. RESPIRATORY: Breath sounds equal bilaterally. No wheezes rhonchi or crackles. No accessory muscle use. GASTROINTESTINAL: Abdomen soft, non-tender, nondistended. MUSCULOSKELETAL: No cyanosis, or edema. PSYCHIATRIC: Appropriate mood and affect; insight and judgment normal. Patient was pleasant and cooperative. Medications and IVs Current Medications Medications (Trade) Dose Ordered Sig/Sussy Route Start Time Stop Time Status Last Admin (Narcan Inj) 0.4 mg UNSCH PRN IV 04/25/17 00:45 (NS Flush) 2 ml BID IV FLUSH 04/25/17 21:00 05/03/17 09:00 (NS Flush) 2 ml UNSCH PRN IV FLUSH 04/25/17 10:30 (D50w (Vial) Inj) 50 ml UNSCH PRN IV PUSH 04/25/17 10:30 (Glucagon Inj) 1 mg UNSCH PRN OTHER 04/25/17 10:30 (Duoneb Neb) 1 ampule Q4HR NEB PRN NEB 04/25/17 10:30 Pharmacy Profile Note 0 ml @ 0 mls/hr UNSCH OTHER 04/25/17 11:00 (Prinivil) 20 mg BID PO 04/27/17 21:00 05/03/17 10:02 (Catapres) 0.1 mg Q6HR PRN PO 04/27/17 12:00 (Antivert) 25 mg Q8H PRN PO 04/27/17 11:00 (Coumadin) 5 mg DAILY@1600 PO 04/30/17 16:00 05/02/17 17:31 (Apresoline) 25 mg Q8HR PO 05/01/17 14:00 (Aldactone) 50 mg BID@,18 PO 05/03/17 18:00 Urinary Catheter: No A/P Assessment and Plan 76-year-old female with a past medical history of A. fib, vertebral artery occlusion, CVA, MRA, HTN, vertigo, GERD, bronchial asthma who presented as a stroke alert Hypertension: Pt declines increase in spirolactone due to "dizziness."Dr. House Informed. Atrial Fibrillation: Telemetry continues. No episodes reported over night. TIA -Head CT showed no acute intracranial process. Neurology consulted, appreciate input. Carotid US, echo, and MRI brain unremarkable. LDL 98, A1c 5.8%. -Usually with TIA symptoms resolved within 24 hours. Patient had symptoms since her hospitalization and stated that it worsened today. I think there may be some psychiatric component that is causing her symptoms. May be secondary to stress. Low probability that patient had another episode of TIA since patient is on the heparin drip even is so symptoms are improving drastically and she is not a candidate for TPA. Patient backed her baseline. - INR is 2.1. Continue with Coumadin 5 mg by mouth daily. Discontinue heparin drip. -Continue with neuro exams. Atrial fibrillation/ Bradycardia/ Sinus pauses HR has been in the 30s at times and the pt has had 2-3 second pauses on telemetry. Cardiology consult appreciated. - d/c Cardizem. Improved. - telemetry. - Coumadin. - nurse infection control stated d/c Cardizem. patient was cleared by nurse infection control. HTN Blood pressure has been widely fluctuating recently. - continue lisinopril at 20 mg BID. -refused hydralazine despite knowing that her blood pressures be controlled in order to decrease risk of another stroke or intracranial bleed since she is on a blood thinner. Patient only agreed to increase spinal lactone. Will increase prolactin 25 mg by mouth twice a day. - clonidine as needed. TAIWO The pt has her home CPAP at the bedside. - continue CPAP. DVT prophylaxis: Anticoagulation as above. SCDs. Discharge Planning Discharge Planning Patient medically stable for discharge. She does not feel like she can go home. It is recommended for patient to go home with home health and remain in the hospital until home health is set up. Salvatore Nicole Jr. May 03, 2017 15:29
[2017-05-03] MEDS: WARFARIN SOD 5 MG TAB PO SCH (17:13)
[2017-05-03] MEDS: SPIRONOLACTONE 50 MG TAB PO SCH (17:14)
[2017-05-03 19:26] LABS: INTERNATIONAL NORMALIZED RATIO 2.5 RATIO; PROTHROMBIN TIME - PATIENT 28.5 SEC (9.8-11.6)
[2017-05-04] VITALS (7 sets, daily range): BP systolic 117–155; BP diastolic 55–67; PULSE 51–81; RESP 16–20; TEMP 97.5–98.5; O2SAT 94–96
[2017-05-04] MEDS: hydrALAZINE HCL 25 MG TAB PO SCH ×3 (05:39→20:11)
[2017-05-04] MEDS: SODIUM CHLORIDE 0.9% FLUSH 5 ML FLUSH IV FLUSH SCH ×2 (09:00→20:11)
[2017-05-04] MEDS: SPIRONOLACTONE 50 MG TAB PO SCH (09:00)
--- NOTE | 2017-05-04 09:29 | HHI.PR ---
Review/Management Diagnosis/Plan: (1) TIA (transient ischemic attack) ICD Codes: G45.9 - Transient cerebral ischemic attack, unspecified Status: Acute Plan: left [facility] tia recs inr 2.5 05/03 meclizine prn possible rehab vs home with p.t. hydration therapy follow exam (2) Sleep apnea ICD Codes: G47.30 - Sleep apnea, unspecified Status: Chronic Plan: on cpap (3) Atrial fibrillation ICD Codes: I48.91 - Unspecified atrial fibrillation (4) Hypertension ICD Codes: I10 - Essential (primary) hypertension Status: Chronic Subjective Subjective Comments No acute events reported feels dizziness; similar to prior worse with certain head positions takes meclizine at home No headache No chest pain No dyspnea Active Medications Current Medications Medications (Trade) Dose Ordered Sig/Sussy Route Start Time Stop Time Status Last Admin (Narcan Inj) 0.4 mg UNSCH PRN IV 04/25/17 00:45 (NS Flush) 2 ml BID IV FLUSH 04/25/17 21:00 05/03/17 20:59 (NS Flush) 2 ml UNSCH PRN IV FLUSH 04/25/17 10:30 (D50w (Vial) Inj) 50 ml UNSCH PRN IV PUSH 04/25/17 10:30 (Glucagon Inj) 1 mg UNSCH PRN OTHER 04/25/17 10:30 (Duoneb Neb) 1 ampule Q4HR NEB PRN NEB 04/25/17 10:30 Pharmacy Profile Note 0 ml @ 0 mls/hr UNSCH OTHER 04/25/17 11:00 (Prinivil) 20 mg BID PO 04/27/17 21:00 05/03/17 20:59 (Catapres) 0.1 mg Q6HR PRN PO 04/27/17 12:00 (Antivert) 25 mg Q8H PRN PO 04/27/17 11:00 (Coumadin) 5 mg DAILY@1600 PO 04/30/17 16:00 05/03/17 17:13 (Apresoline) 25 mg Q8HR PO 05/01/17 14:00 (Aldactone) 50 mg BID@09,18 PO 05/03/17 18:00 (Antivert) 12.5 mg Q8H PRN PO 05/04/17 09:30 UNV Allergies Allergies Coded Allergies acebutolol (Unverified Allergy, Severe, 04/08/17) amlodipine (Unverified Allergy, Severe, NAUSEA,HEADACHE,VOMITING, 04/08/17) atenolol (Unverified Allergy, Severe, 04/08/17) atorvastatin (Unverified Allergy, Severe, NAUSEA,HEADACHE,VOMITING, 04/08/17) betaxolol (Unverified Allergy, Severe, 04/08/17) carvedilol (Unverified Allergy, Severe, 04/08/17) cephalexin (Unverified Allergy, Severe, 04/08/17) diltiazem (Unverified Allergy, Severe, NAUSEA,HEADACHE,VOMITING, 04/08/17) doxepin (Unverified Allergy, Severe, 04/08/17) hydrochlorothiazide (Unverified Allergy, Severe, 04/08/17) iohexol (Unverified Allergy, Severe, Code 99 - Respiratory Failure, 04/08/17) isradipine (Unverified Allergy, Severe, NAUSEA,HEADACHE,VOMITING, 04/08/17) labetalol (Unverified Allergy, Severe, 04/08/17) levothyroxine (Unverified Allergy, Severe, 04/08/17) levothyroxine sodium (Unverified Allergy, Severe, 04/08/17) medroxyprogesterone (Unverified Allergy, Severe, 04/08/17) metoprolol (Unverified Allergy, Severe, 04/08/17) monosodium glutamate (Unverified Allergy, Severe, 04/08/17) nebivolol (Unverified Allergy, Severe, 04/08/17) nicardipine (Unverified Allergy, Severe, NAUSEA,HEADACHE,VOMITING, 04/08/17) nifedipine (Unverified Allergy, Severe, NAUSEA,HEADACHE,VOMITING, 04/08/17) nimodipine (Unverified Allergy, Severe, NAUSEA,HEADACHE,VOMITING, 04/08/17) pindolol (Unverified Allergy, Severe, 04/08/17) prochlorperazine (Unverified Allergy, Severe, 04/08/17) propranolol (Unverified Allergy, Severe, 04/08/17) ranitidine (Unverified Allergy, Severe, 04/08/17) scopolamine (Unverified Allergy, Severe, 04/08/17) sotalol (Unverified Allergy, Severe, 04/08/17) ticlopidine (Unverified Allergy, Severe, 04/08/17) timolol (Unverified Allergy, Severe, 04/08/17) verapamil (Unverified Allergy, Severe, 04/08/17) MRI PRECAUTION (Verified Allergy, Mild, 10/19/11) codeine (Unverified Allergy, Mild, 04/08/17) diatrizoate meglumine (Unverified Allergy, Mild, 04/08/17) diazepam (Unverified Allergy, Mild, 04/08/17) diphenhydramine (Unverified Allergy, Mild, 04/08/17) doxazosin (Unverified Allergy, Mild, 04/08/17) gadobenic acid (Unverified Allergy, Mild, 04/08/17) gadodiamide (Unverified Allergy, Mild, 04/08/17) gadoteridol (Unverified Allergy, Mild, 04/08/17) iodixanol (Unverified Allergy, Mild, 04/08/17) phentolamine (Unverified Allergy, Mild, 04/08/17) prazosin (Unverified Allergy, Mild, 04/08/17) prednisone (Unverified Allergy, Mild, 04/08/17) terazosin (Unverified Allergy, Mild, 04/08/17) Uncoded Allergies ASPARATINE ( Allergy, Severe, 07/12/07) STERIODS ( Allergy, Severe, 07/12/07) MUCINEX ( Allergy, Mild, 10/19/11) Review of Systems All other ROS: ROS reviewed as documented in chart Exam I&O / VS Vital Signs Date Time Temp Pulse Resp B/P (MAP) Pulse Ox O2 Delivery O2 Flow Rate FiO2 05/04/17 06:22 97.8 72 20 155/62 (93) 95 05/04/17 00:00 97.5 65 20 143/63 (89) 94 05/03/17 20:57 97.9 61 18 141/61 (87) 95 05/03/17 16:00 98.6 58 18 160/64 (96) 93 05/03/17 12:00 99.3 75 18 136/60 (85) 91 05/03/17 10:59 60 General: Alert and Oriented, No acute distress Eye: EOMI Respiratory: Non-labored respirations Neurologic: Alert, Oriented, Normal motor, No focal defects, CN II-XII intact Psychiatric: Cooperative, Appropriate mood & affect Objective Micro and Labs Laboratory Tests Test 05/03/17 09:45 05/03/17 18:56 White Blood Count 7.3 Red Blood Count 5.14 Hemoglobin 14.3 Hematocrit 43.2 Mean Corpuscular Volume 84.0 Mean Corpuscular Hemoglobin 27.8 Mean Corpuscular Hemoglobin Concent 33.0 Red Cell Distribution Width 15.8 Platelet Count 200 Mean Platelet Volume 9.1 Prothrombin Time 28.5 Prothromb Time International Ratio 2.5 Problem Qualifiers (1) TIA (transient ischemic attack): Qualified Codes: G45.9 - Transient cerebral ischemic attack, unspecified (2) Atrial fibrillation: Qualified Codes: I48.2 - Chronic atrial fibrillation Ronald Miguel MD May 04, 2017 09:29
[2017-05-04] MEDS ORDERED: MECLIZINE HCL 25 MG TAB PO PRN (09:30)
[2017-05-04] MEDS: LISINOPRIL 20 MG TAB PO SCH ×2 (09:47→20:13)
[2017-05-04 10:46] LABS: INTERNATIONAL NORMALIZED RATIO 2.9 RATIO; PROTHROMBIN TIME - PATIENT 33.5 SEC (9.8-11.6)
--- NOTE | 2017-05-04 11:13 | HHI.PR ---
Subjective Remarks Follow-up for TIA and hypertension Patient says she feels awful. When I asked her why she was very upset because I did not stop the spironolactone. I tried to explain to the patient that we have no problem if she did not want take the medication but she has to be aware of the consequences of not getting her blood pressure under control. I told her that her blood pressure should be controlled since she is on a anticoagulation which can increase her risk of intracranial bleed if her blood pressure is elevated and that it also increase risk of CVA/TIA. Patient interrupted the conversation multiple times during interview along with her friend. She later stated I had should not have started her on spironolactone at all even though she is aware that I was not the one who started her on this medication and that her loss control technician started her on that. We had numerous conversations regards to this during previous interviews. She stated that I need to leave her blood pressure to Dr. Moreira, her PCP. Throughout the interview she would not listen to anything I say. She and her friend accuse me of not managing her properly and stated " You have a lot of learning to do." When I tried to answer her regards to her dizziness she stated that Dr. Mayer told her that I did not notify him that she was here in the hospital. I told her the neurologist are fully aware of her and the order is shown in the EMR system and they have been following her and its up to them to determine how often that they want to see her. She accused me of lying. Due to the hostile environment from her friend and her I told them this would not be a good match and they stated they agreed and wanted another physician. Dealt with patient's nurse and charge nurse. Objective Vitals Vital Signs Date Time Temp Pulse Resp B/P (MAP) Pulse Ox O2 Delivery O2 Flow Rate FiO2 05/04/17 06:22 97.8 72 20 155/62 (93) 95 05/04/17 00:00 97.5 65 20 143/63 (89) 94 05/03/17 20:57 97.9 61 18 141/61 (87) 95 05/03/17 16:00 98.6 58 18 160/64 (96) 93 05/03/17 12:00 99.3 75 18 136/60 (85) 91 05/03/17 10:59 60 I/O 05/03/17 05/03/17 05/03/17 05/04/17 05/04/17 05/04/17 07:00 15:00 23:00 07:00 15:00 23:00 Intake Total 400 ml 480 ml 360 ml Balance 400 ml 480 ml 360 ml Intake Oral 400 ml 480 ml 360 ml # Voids 3 2 2 Result Diagram: 05/03/17 0934 Objective Remarks GENERAL: Well-developed well-nourished. Morbidly obese. In no acute distress laying in bed. NEUROLOGICAL: Normal speech but slow at time. No facial asymmetry. Medications and IVs Current Medications Sodium Chloride 1,000 ml @ 70 mls/hr [id number] ONCE IV Last administered on 01:19; Start 04/24/17 at 23:01; Stop 04/25/17 at 13:18; Status DC Sodium Chloride 500 ml @ 500 mls/hr BOLUS ONCE IV ; Start 04/24/17 at 23:45; Stop 04/25/17 at 00:44; Status DC Heparin Sodium/ Dextrose 250 ml @ 0 mls/hr TITRATE PRN IV Coagulation management Last administered on 04/29/17 19:05; Start 04/24/17 at 23:45; Stop at 06:25; Status DC Warfarin Sodium (Coumadin) 10 mg ONCE ONCE PO ; Start 04/24/17 at 23:45; Stop 04/24/17 at 23:47; Status DC Sodium Chloride (NS Flush) 2 ml UNSCH PRN IV FLUSH FLUSH AFTER USING IV ACCESS ; Start 04/25/17 at 00:45; Stop 04/25/17 at 11:47; Status DC Sodium Chloride (NS Flush) 2 ml BID IV FLUSH ; Start 04/25/17 at 09:00; Stop 04/25 at 11:47; Status DC Naloxone HCl (Narcan Inj) 0.4 mg UNSCH PRN IV SEE LABEL COMMENTS; Start at 00:45 Pantoprazole Sodium (Protonix) 20 mg DAILY PO ; Start 04/26/17 at 09:00; Stop 04/26/17 at 13:27; Status DC IV Flush (NS Flush) 2 ml BID IV FLUSH Last administered on 05/04/17 09:00; Start 04/25/17 at 21:00 IV Flush (NS Flush) 2 ml UNSCH PRN IV FLUSH FLUSH AFTER USING IV ACCESS; Start 04/25/17 at 10:30 Sodium Chloride 1,000 ml @ 70 mls/hr [id number] IV Last administered on 04/27/17 01:40; Start 04/25/17 at 10:24; Stop 04/27/17 at 10:32; Status DC Insulin Aspart (NovoLOG SUPPLEMENTAL SCALE) 1 ACHS SQ ; Start 04/25/17 at 11:00; Stop 04/28/17 at 08:49; Status DC Dextrose (D50w (Vial) Inj) 50 ml UNSCH PRN IV PUSH HYPOGLYCEMIA-SEE COMMENTS; Start 04/25/17 at 10:30 Glucagon (Glucagon Inj) 1 mg UNSCH PRN OTHER HYPOGLYCEMIA-SEE COMMENTS; Start 04/25/17 at 10:30 Albuterol/ Ipratropium (Duoneb Neb) 1 ampule Q4HR NEB PRN NEB SOB/WHEEZING; Start 04/25/17 at 10:30 Warfarin Sodium (Coumadin) 5 mg DAILY@1600 PO Last administered on 04/25/17 18: 37; Start 04/25/17 at 16:00; Stop 04/26/17 at 14:55; Status DC Pharmacy Profile Note 0 ml @ 0 mls/hr UNSCH OTHER ; Start 04/25/17 at 11:00 Patient Medication Teaching (Coumadin Booklet) 1 ONCE@1600 ONCE .XX Last administered on 04/25/17 18:37; Start 04/25/17 at 16:00; Stop 04/25/17 at 16:01; Status DC Diltiazem HCl (Cardizem Cd) 240 mg DAILY PO Last administered on 04/25/17 21:38 ; Start 04/25/17 at 19:15; Stop 04/30/17 at 06:25; Status DC Lisinopril (Prinivil) 10 mg DAILY PO ; Start 04/26/17 at 09:00; Stop 04/26/17 at 13:47; Status DC Lisinopril (Prinivil) 10 mg BID PO Last administered on 04/27/17 08:02; Start 04/26/17 at 21:00; Stop 04/27/17 at 10:17; Status DC Warfarin Sodium (Coumadin) 6 mg DAILY@1600 PO Last administered on 04/28/17 16: 33; Start 04/26/17 at 16:00; Stop 04/30/17 at 06:25; Status DC Lisinopril (Prinivil) 20 mg BID PO Last administered on 05/04/17 09:47; Start 04/27/17 at 21:00 Lisinopril (Prinivil) 10 mg ONCE ONCE PO Last administered on 04/27/17 10:47; Start 04/27/17 at 11:00; Stop 04/27/17 at 11:01; Status DC Clonidine (Catapres) 0.1 mg Q6HR PRN PO SBP> OR = 180, DBP> OR = 100; Start 04/27/17 at 12:00 Meclizine HCl (Antivert) 25 mg Q8H PRN PO dizziness/ nausea; Start 04/27/17 at 11:00; Stop 05/04/17 at 09:29; Status DC Spironolactone (Aldactone) 25 mg DAILY PO Last administered on 05/02/17 09:29; Start 04/30/17 at 09:00; Stop 05/02/17 at 12:49; Status DC Warfarin Sodium (Coumadin) 5 mg DAILY@1600 PO Last administered on 05/03/17 17: 13; Start 04/30/17 at 16:00 Heparin Sodium/ Dextrose 250 ml @ 12 mls/hr TITRATE IV Last administered on 03:39; Start 04/30/17 at 11:45; Stop 05/02/17 at 12:47; Status DC Hydralazine HCl (Apresoline) 25 mg Q8HR PO ; Start 05/01/17 at 14:00 Spironolactone (Aldactone) 25 mg BID@,18 PO Last administered on 05/02/17 17: 31; Start 05/02/17 at 18:00; Stop 05/03/17 at 09:35; Status DC Spironolactone (Aldactone) 50 mg BID@,18 PO ; Start 05/03/17 at 18:00; Stop 06/10 at 10:00; Status DC Spironolactone (Aldactone) 25 mg ONCE ONCE PO Last administered on 05/03/17 10 :02; Start 05/03/17 at 10:00; Stop 05/03/17 at 10:01; Status DC Meclizine HCl (Antivert) 12.5 mg Q8H PRN PO dizziness Last administered on 05/04 10:05; Start 05/04/17 at 09:30 A/P Assessment and Plan 76-year-old female with a past medical history of A. fib, vertebral artery occlusion, CVA, MRA, HTN, vertigo, GERD, bronchial asthma who presented as a stroke alert TIA -Head CT showed no acute intracranial process. Neurology consulted, appreciate input. Carotid US, echo, and MRI brain unremarkable. LDL 98, A1c 5.8%. - INR is 2.5. Continue with Coumadin 5 mg by mouth daily. s/p heparin gtt. -Continue with neuro exams. Atrial fibrillation/ Bradycardia/ Sinus pauses HR has been in the 30s at times and the pt has had 2-3 second pauses on telemetry. Cardiology consult appreciated. - d/c Cardizem. Improved. - telemetry. - Coumadin. - loss control technician stated d/c Cardizem. patient was cleared by loss control technician. Dizziness -Dr Miguel d/faby meclizine 25 mg and change it to 12.5 mg by mouth twice a day. HTN -Noncompliance. - continue lisinopril at 20 mg BID. -refused hydralazine and spironolactone. Patient stated that she will not take any medication unless antihypertensive medication expect lisinopril. I discussed with her multiple times in the importance of controlling blood pressure and she is aware of the consequences. TAIWO The pt has her home CPAP at the bedside. - continue CPAP. DVT prophylaxis: Anticoagulation as above. SCDs. Discharge Planning Patient medically stable for discharge. She does not feel like she can go home. It is recommended for patient to go home with home health. Dealt with case management unable to establish home health or any assistance. Patient will have to remain in the hospital until home health is set up. Since there is no trust between patient and physician Dr. Walters and was assigned to the patient. Patient was signed out to him. Patient already seen today and he will take over care tomorrow. Pia House MD May 04, 2017 11:13
[2017-05-04] MEDS: WARFARIN SOD 5 MG TAB PO SCH (15:38)
[2017-05-05] VITALS (7 sets, daily range): BP systolic 121–160; BP diastolic 58–86; PULSE 54–82; RESP 16–18; TEMP 97–98.1; O2SAT 95–97
[2017-05-05] MEDS: hydrALAZINE HCL 25 MG TAB PO SCH ×3 (05:25→20:25)
[2017-05-05 07:18] LABS: INTERNATIONAL NORMALIZED RATIO 3.2 RATIO; PROTHROMBIN TIME - PATIENT 37.7 SEC (9.8-11.6)
[2017-05-05] MEDS: LISINOPRIL 20 MG TAB PO SCH ×2 (08:07→20:25)
[2017-05-05] MEDS: SODIUM CHLORIDE 0.9% FLUSH 5 ML FLUSH IV FLUSH SCH ×2 (08:09→20:25)
--- NOTE | 2017-05-05 14:50 | HHI.PR ---
Subjective Remarks Follow up CVA/TIA, hypertension. The patient states that she had an episode of headache, which felt like pressure. It started about 5:30 this morning and worsened until about 7 this morning. It has now resolved. She denies any new weakness in her extremities. No new vision changes. No chest pain or dyspnea today. She feels that her left-sided weakness has improved since she was admitted to the hospital. Objective Vitals Vital Signs Date Time Temp Pulse Resp B/P (MAP) Pulse Ox O2 Delivery O2 Flow Rate FiO2 05/05/17 12:00 97.6 68 16 121/60 (80) 96 05/05/17 08:00 97.4 82 16 153/70 (97) 96 05/05/17 04:39 98.1 77 18 160/86 (110) 97 05/05/17 00:06 98.0 77 18 142/63 (89) 97 05/04/17 20:10 98.5 74 18 120/55 (76) 96 05/04/17 16:00 97.9 66 16 117/56 (76) 95 I/O 05/04/17 05/04/17 05/04/17 05/05/17 05/05/17 05/05/17 07:00 15:00 23:00 07:00 15:00 23:00 Intake Total 360 ml 600 ml 360 ml 120 ml Balance 360 ml 600 ml 360 ml 120 ml Intake Oral 360 ml 600 ml 360 ml 120 ml # Voids 2 3 1 1 # Bowel Movements 1 0 0 Result Diagram: 05/03/17 0945 Imaging Last Impressions Head CT 05/01/17 0000 Signed Impressions: Service Date/Time: April 10:35 - CONCLUSION: Slight atrophic and small vessel ischemic changes without any evidence for acute hemorrhage or mass effect. Andrew Barajas MD Head Magnetic Resonance Angiography 04/25/17 0000 Signed Impressions: Service Date/Time: Tuesday, April 25, 2017 19:12 - CONCLUSION: No acute disease. Imtiaz Gonzalez MD Carotid Artery Ultrasound 04/25/17 0000 Signed Impressions: Service Date/Time: Tuesday, April 25, 2017 16:12 - CONCLUSION: Negative for hemodynamically significant stenosis. Jonathan Kurtz MD FACR Brain MRI 04/25/17 0000 Signed Impressions: Service Date/Time: Tuesday, April 25, 2017 19:12 - CONCLUSION: No acute disease. Imtiaz Gonzalez MD Objective Remarks General: Obese elderly female in no acute distress. Heart: Regular rate and rhythm. No murmur. Lungs: Clear to auscultation bilaterally. No wheezes, rales, or rhonchi. Breathing is nonlabored. Abdomen: Soft, nontender, nondistended. Extremities: No lower extremity edema. Psych: Alert and oriented. Neuro: No facial droop. Speech is slow at times. Procedures None Urinary Catheter: No Vascular Central Line Catheter: No A/P Problem List: (1) Hypertension ICD Code: I10 - Essential (primary) hypertension Status: Chronic (2) TIA (transient ischemic attack) ICD Code: G45.9 - Transient cerebral ischemic attack, unspecified Status: Acute (3) Atrial fibrillation ICD Code: I48.91 - Unspecified atrial fibrillation (4) Sleep apnea ICD Code: G47.30 - Sleep apnea, unspecified Status: Chronic Assessment and Plan 1. TIA: Head CT is negative for acute process. Appreciate neurology recommendations. Echocardiogram, carotid artery ultrasound, and brain MRI are unremarkable. Continue anticoagulation with Coumadin. Patient is now off heparin drip. INR is elevated. Hold Coumadin today and recheck INR in the morning. 2. Atrial fibrillation, bradycardia, sinus pauses: Heart rate has been as low as the 30s and patient has had 2-3 second pauses on telemetry. Appreciate cardiology recommendations. Cardizem was discontinued. Heart rate has improved. Continue telemetry monitoring. 3. Dizziness: Continue meclizine per neurology. 4. Hypertension: Continue lisinopril. Patient has refused hydralazine, spironolactone. Patient has been counseled on the importance of good blood pressure control. 5. Obstructive sleep apnea: CPAP. 6. DVT prophylaxis: SCDs, Coumadin. Discharge Planning Possible discharge home with home health next 1-2 days if cleared by neurology. Problem Qualifiers (1) TIA (transient ischemic attack): Qualified Codes: G45.9 - Transient cerebral ischemic attack, unspecified (2) Atrial fibrillation: Qualified Codes: I48.2 - Chronic atrial fibrillation Rudolph Reddy MD May 05, 2017 14:50
--- NOTE | 2017-05-05 14:52 | HHI.FF ---
Face to Face Verification Diagnosis: (1) TIA (transient ischemic attack) (2) Sleep apnea (3) Hypertension (4) Obesity (5) Atrial fibrillation Physical Therapy Order: Evaluate and Treat Home Health Nursing Order: Nursing assessment with vital signs I have seen patient Praveena Washington on 05/05/17. My clinical findings support the need for the requested home health care services because: High risk of falls I certify that my clinical findings support that this patient is homebound because: Unsteady gait/balance Rudolph Reddy MD May 05, 2017 14:51
[2017-05-06 00:15] VITALS: BP 126/62; PULSE 70; RESP 18; TEMP 97.2; O2SAT 97
[2017-05-06 04:00] VITALS: BP 127/61; PULSE 73; RESP 20; TEMP 97.5; O2SAT 94
[2017-05-06] MEDS: hydrALAZINE HCL 25 MG TAB PO SCH ×2 (04:29→13:48)
[2017-05-06 08:27] VITALS: BP 158/69; PULSE 80; RESP 18; TEMP 97.4; O2SAT 97
[2017-05-06] MEDS: SODIUM CHLORIDE 0.9% FLUSH 5 ML FLUSH IV FLUSH SCH (08:29)
[2017-05-06] MEDS: LISINOPRIL 20 MG TAB PO SCH (08:29)
[2017-05-06] MEDS ORDERED: LISI-515 PO (10:43)
[2017-05-06] MEDS ORDERED: MECL1TAB42 PO (10:43)
[2017-05-06] MEDS ORDERED: HYDR-3799 PO (10:43)
[2017-05-06] MEDS ORDERED: WARF-18 PO (10:43)
--- NOTE | 2017-05-06 10:52 | HHI.PR ---
Subjective Remarks Follow up CVA/TIA, hypertension. Patient states that she feels better today. She denies chest pain, dyspnea. No more episodes overnight. Objective Vitals Vital Signs Date Time Temp Pulse Resp B/P (MAP) Pulse Ox O2 Delivery O2 Flow Rate FiO2 05/06/17 08:27 97.4 80 18 158/69 (98) 97 05/06/17 04:00 97.5 73 20 127/61 (83) 94 05/06/17 00:15 97.2 70 18 126/62 (83) 97 05/05/17 20:00 97.0 77 18 123/58 (79) 97 05/05/17 18:00 54 05/05/17 16:00 97.9 68 16 144/68 (93) 95 05/05/17 12:00 97.6 68 16 121/60 (80) 96 I/O 05/05/17 05/05/17 05/05/17 05/06/17 05/06/17 05/06/17 07:00 15:00 23:00 07:00 15:00 23:00 Intake Total 120 ml Balance 120 ml Intake Oral 120 ml # Voids 1 7 # Bowel Movements 0 Result Diagram: 05/03/17 0945 Imaging Last Impressions Head CT 05/01/17 0000 Signed Impressions: Service Date/Time: April 10:35 - CONCLUSION: Slight atrophic and small vessel ischemic changes without any evidence for acute hemorrhage or mass effect. Andrew Barajas MD Head Magnetic Resonance Angiography 04/25/17 0000 Signed Impressions: Service Date/Time: Tuesday, April 25, 2017 19:12 - CONCLUSION: No acute disease. Imtiaz Gonzalez MD Carotid Artery Ultrasound 04/25/17 0000 Signed Impressions: Service Date/Time: Tuesday, April 25, 2017 16:12 - CONCLUSION: Negative for hemodynamically significant stenosis. Jonathan Kurtz MD FACR Brain MRI 04/25/17 0000 Signed Impressions: Service Date/Time: Tuesday, April 25, 2017 19:12 - CONCLUSION: No acute disease. Imtiaz Gonzalez MD Objective Remarks General: Obese elderly female in no acute distress. Heart: Regular rate and rhythm. No murmur. Lungs: Clear to auscultation bilaterally. No wheezes, rales, or rhonchi. Breathing is nonlabored. Abdomen: Soft, nontender, nondistended. Extremities: No lower extremity edema. Psych: Alert and oriented. Neuro: No facial droop. Speech is normal. Procedures None Urinary Catheter: No Vascular Central Line Catheter: No A/P Problem List: (1) Hypertension ICD Code: I10 - Essential (primary) hypertension Status: Chronic (2) TIA (transient ischemic attack) ICD Code: G45.9 - Transient cerebral ischemic attack, unspecified Status: Acute (3) Atrial fibrillation ICD Code: I48.91 - Unspecified atrial fibrillation (4) Sleep apnea ICD Code: G47.30 - Sleep apnea, unspecified Status: Chronic Assessment and Plan 1. TIA: Head CT is negative for acute process. Appreciate neurology recommendations. Echocardiogram, carotid artery ultrasound, and brain MRI are unremarkable. Continue anticoagulation with Coumadin. Patient is now off heparin drip. INR is pending. Coumadin held yesterday. 2. Atrial fibrillation, bradycardia, sinus pauses: Heart rate has been as low as the 30s and patient has had 2-3 second pauses on telemetry. Appreciate cardiology recommendations. Cardizem was discontinued. Heart rate has improved. Continue telemetry monitoring. 3. Dizziness: Continue meclizine per neurology. 4. Hypertension: Continue lisinopril. Patient has refused spironolactone. Patient has been counseled on the importance of good blood pressure control. 5. Obstructive sleep apnea: CPAP. 6. DVT prophylaxis: SCDs, Coumadin. Discharge Planning Discharged home with home health care if arrangements can be made and pending review of today's lab results. Problem Qualifiers (1) TIA (transient ischemic attack): Qualified Codes: G45.9 - Transient cerebral ischemic attack, unspecified (2) Atrial fibrillation: Qualified Codes: I48.2 - Chronic atrial fibrillation Rudolph Reddy MD May 06, 2017 10:52
--- NOTE | 2017-05-06 10:54 | HHI.FF ---
Face to Face Verification Diagnosis: (1) Atrial fibrillation (2) Hypertension (3) TIA (transient ischemic attack) (4) CVA (cerebral vascular accident) Physical Therapy Order: Evaluate and Treat Home Health Nursing Order: Nursing assessment with vital signs Instructions: PT/INR on 05/07/17 I have seen patient Praveena Washington on 05/06/17. My clinical findings support the need for the requested home health care services because: High risk of falls I certify that my clinical findings support that this patient is homebound because: Unsteady gait/balance Rudolph Reddy MD May 06, 2017 10:54
[2017-05-06 13:06] LABS: HEMATOCRIT 46.2 % (35.0-46.0); MEAN CELL VOLUME 84.6 FL (80.0-100.0); MEAN CORPUSCULAR HEMOGLOBIN 28.2 PG (27.0-34.0); MEAN CORPUSCULAR HGB CONC 33.3 % (32.0-36.0); PLATELET COUNT 210 TH/MM3 (150-450); RED BLOOD COUNT 5.46 MIL/MM3 (4.00-5.30); RED CELL DISTRIBUTION WIDTH 15.9 % (11.6-17.2); REVIEW FLAG FINAL; WHITE BLOOD COUNT 8.8 TH/MM3 (4.0-11.0)
[2017-05-06 13:07] LABS: INTERNATIONAL NORMALIZED RATIO 2.6 RATIO; PROTHROMBIN TIME - PATIENT 29.8 SEC (9.8-11.6)
[2017-05-06] MEDS ORDERED: WARFARIN SOD 2.5 MG TAB PO SCH (16:00)
--- NOTE | 2017-05-29 15:22 | HHI.DS ---
cc: Adrianne Moreira MD Discharge Summary Admission Date Apr 25, 2017 at 10:26 Discharge Date: May 06, 2017 Admitting Diagnosis CVA (1) Hypertension ICD Code: I10 - Essential (primary) hypertension Status: Chronic (2) TIA (transient ischemic attack) ICD Code: G45.9 - Transient cerebral ischemic attack, unspecified Status: Acute (3) Atrial fibrillation ICD Code: I48.91 - Unspecified atrial fibrillation (4) Sleep apnea ICD Code: G47.30 - Sleep apnea, unspecified Status: Chronic Procedures None Brief History - From Admission 76-year-old female with a past medical history of A. fib, vertebral artery occlusion, CVA, MRA, HTN, vertigo, GERD, bronchial asthma who presented as a stroke alert. The patient states that about 9 PM last night she had been sleeping for 30 minutes and woke up with severe vertigo. She had associated nausea and vomiting 2. When she got a bed she noticed that her left leg was dragging. About 15 minutes later when the paramedics arrived she was having left upper extremity weakness as well. Neurology was contacted from the ED and recommended TPA but the patient declined. She was placed on a heparin drip. 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 She still has significant left leg weakness. She is having somewhat of a hard time finding words. She denies any vision changes since her recent cataract surgery. She has been having labile blood pressure and her PCP recently increase lisinopril. She states her PCP and cardiology have not started her on anticoagulation due to multiple medication allergies. She was told recently that she may need to start on Coumadin and she is agreeable to that but would like to be on the lowest dose possible. Imaging Last Impressions Head CT 05/01/17 0000 Signed Impressions: Service Date/Time: April 10:35 - CONCLUSION: Slight atrophic and small vessel ischemic changes without any evidence for acute hemorrhage or mass effect. Andrew Barajas MD Head Magnetic Resonance Angiography 04/25/17 0000 Signed Impressions: Service Date/Time: Tuesday, April 25, 2017 19:12 - CONCLUSION: No acute disease. Imtiaz Gonzalez MD Carotid Artery Ultrasound 04/25/17 0000 Signed Impressions: Service Date/Time: Tuesday, April 25, 2017 16:12 - CONCLUSION: Negative for hemodynamically significant stenosis. Jonathan Kurtz MD FACR Brain MRI 04/25/17 0000 Signed Impressions: Service Date/Time: Tuesday, April 25, 2017 19:12 - CONCLUSION: No acute disease. Imtiaz Gonzalez MD PE at Discharge General: Obese elderly female in no acute distress. Heart: Regular rate and rhythm. No murmur. Lungs: Clear to auscultation bilaterally. No wheezes, rales, or rhonchi. Breathing is nonlabored. Abdomen: Soft, nontender, nondistended. Extremities: No lower extremity edema. Psych: Alert and oriented. Neuro: No facial droop. Speech is normal. Hospital Course The patient was admitted for further management of acute CVA. Neurology was consulted. PT/OT/ST were ordered. She was placed on Coumadin with heparin drip bridging to therapeutic INR. Cardiology was consulted regarding atrial fibrillation. The patient developed dizziness and was started on meclizine. Her weakness improved somewhat throughout the hospitalization. Her INR reached the therapeutic range and heparin drip was discontinued. She was cleared for discharge by neurology and felt to be stable for discharge home with home health care. Pt Condition on Discharge: Stable Discharge Disposition: Disch w/ Home Health Serv Discharge Time: > 30 minutes Discharge Instructions DIET: Follow Instructions for: Heart Healthy Diet Activities you can perform: Regular-No Restrictions Follow up Referrals: Cardiology - 2 Weeks with Macario Moyer MD Neurology - 2 Weeks with Ronald Miguel MD PCP Follow-up - 2-3 Days with Adrianne Moreira MD New Orders: PT/INR - 05/07/17 New Medications: Bariatric Rollator/Extra (Bariatric Rollator/Extra) 1 Mis Mis EA .ROUTE DIRECTED, #1 Bedside Commode (Bedside Commode) 1 Mis Mis EA .ROUTE DIRECTED, #1 0 Refills Walker Rolling/GetGo (Walker Rolling/GetGo) 1 Mis Mis EA .ROUTE DIRECTED, #1 Warfarin (Warfarin) 2.5 Mg Tab 2.5 MG PO DAILY for Blood Clot Prevention, #30 TAB 0 Refills Hydralazine HCl (Hydralazine HCl) 25 Mg Tablet 25 MG PO Q8HR for Blood Pressure Management, #90 TAB 0 Refills Lisinopril (Lisinopril) 20 Mg Tab 20 MG PO BID for Blood Pressure Management, #60 TAB 0 Refills Meclizine HCl (Meclizine 25) 25 Mg Tab 12.5 MG PO Q8H PRN for dizziness, #30 TAB 0 Refills Continued Medications: Rabeprazole Sodium (Aciphex) 20 Mg Tabdr 20 MG PO DAILY Discontinued Medications: Acetaminophen (Tylenol) 325 Mg Tab 325 MG PO DIRECTED Aspirin (Aspirin) 81 Mg Tab 81 MG PO DAILY Azithromycin (Zithromax Z-Michael) 250 Mg Tab 250 MG PO DIRECTED for 5 Days 500 MG (2 TABLETS) PO ON DAY 1, THEN 250 MG (1 TABLET) PO ON DAYS 2 TO 5. Diltiazem Hcl (Cardizem Cd) 240 Mg Cap 240 MG PO DAILY Lisinopril 10 mg (Lisinopril 10 mg) 10 Mg Tab 10 MG PO DAILY Meclizine Hcl (Antivert) 12.5 Mg Tab 12.5 MG PO DAILY Prednisone (Deltasone 5 mg Tab) 5 Mg Tab 5 MG PO DIRECTED, #6 3 PO DAY 1 2 PO DAY 2 1 PO DAY 3 Rudolph Reddy MD May 29, 2017 15:22
== END 2017-05-06 16:35 | disposition home health service (06) | DRG 65 ==
LOC: NEPE 22:57 → UNDOADMIN 04-25 00:14 → NEDA 04-25 00:14 → INTOOBSV 04-25 00:39 → NEDA 04-25 00:39 → NEPFCDU 04-25 03:20 → OBSVTOIN 04-25 10:26 → N05A 04-25 20:37
PROVIDERS: ADMIT Family Medicine; ATTEND Family Medicine
DX: I63.9 Cerebral infarction, unspecified (principal); G81.94 Hemiplegia, unspecified affecting left nondominant side; I48.91 Unspecified atrial fibrillation; Z68.43 Body mass index [BMI] 50.0-59.9, adult; E66.01 Morbid (severe) obesity due to excess calories; G47.33 Obstructive sleep apnea (adult) (pediatric); R47.02 Dysphasia; R29.810 Facial weakness; K21.9 Gastro-esophageal reflux disease without esophagitis; J45.909 Unspecified asthma, uncomplicated; I10 Essential (primary) hypertension; I65.09 Occlusion and stenosis of unspecified vertebral artery; I45.10 Unspecified right bundle-branch block; Z79.82 Long term (current) use of aspirin; Z86.73 Personal history of transient ischemic attack (TIA), and cerebral infarction without residual deficits; Z91.041 Radiographic dye allergy status
CPT/HCPCS: 70450; 70544; 70551; 80048; 80061; 80307; 81001; 82435; 82550; 82565; 82947; 82948; 83036; 84132; 84295; 84484; 84520; 85025; 85027; 85384; 85610; 85730; 86850; 86900; 86901; 93005; 93306; 93880; 99291; G8987-GP; G8988-GP; J1644; J7030

== ENCOUNTER → 2017-06-18 | Outpatient (CLI) | payer MEDICARE, OTHER ==
[~2017-06-18] MED LIST changes: -ACET325 PO; -ANTI12.5 PO; -ASPI81 PO; +BARIATRIC ROLLA1 MIS; +BEDSIDE COMMODE1 MI1; -CARD240C6 PO; +GETGO ROLLING W1 MI1; +HYDR-3799 PO; -LISI-360 PO; +LISI-515 PO; +MECL1TAB42 PO; -PRED5 PO; +WARF-18 PO; -ZITH250T PO
[2017-06-18 14:04] LABS: ALBUMIN 3.5 GM/DL (3.4-5.0); AST (GOT) 23 U/L (15-37); BICARBONATE 26.2 MEQ/L (21.0-32.0); BLOOD UREA NITROGEN 18 MG/DL (7-18); CALCIUM 9.5 MG/DL (8.5-10.1); CHLORIDE 106 MEQ/L (98-107); CREATININE 0.97 MG/DL (0.50-1.00); GLOMERULAR FILTRATION RATE 56 ML/MIN (>89); GLUCOSE,FASTING 96 MG/DL (74-99); SODIUM (NA) 140 MEQ/L (136-145)
[2017-06-18 14:05] LABS: ALT (GPT) 35 U/L (10-53); CHOLESTEROL 193 MG/DL (120-200); TRIGLYCERIDES 109 MG/DL (42-150)
[2017-06-18 14:07] LABS: ALKALINE PHOSPHATASE 84 U/L (45-117); LDL CHOLESTEROL 130 MG/DL (0-99); TOTAL BILIRUBIN ADULT 0.7 MG/DL (0.2-1.0); TOTAL PROTEIN 7.4 GM/DL (6.4-8.2)
[2017-06-18 20:19] LABS: HEMOGLOBIN A1C 5.6 % (4.3-6.0)
== END ==
LOC: PLAB 08:08
PROVIDERS: ATTEND Family Medicine
DX: I69.354 Hemiplegia and hemiparesis following cerebral infarction affecting left non-dominant side (principal); I48.91 Unspecified atrial fibrillation; I10 Essential (primary) hypertension; E55.9 Vitamin D deficiency, unspecified
CPT/HCPCS: 36415; 80053; 80061; 82306; 83036

== ENCOUNTER → 2017-12-23 | Outpatient (CLI) | payer MEDICARE, OTHER ==
[2017-12-23 14:09] LABS: AUTOMATED NEUTROPHIL # 7.2 TH/MM3 (1.8-7.7); BASOPHIL # 0.1 TH/MM3 (0-0.2); BASOPHIL % 0.9 % (0.0-2.0); EOSINOPHIL # 0.1 TH/MM3 (0-0.4); EOSINOPHIL % 0.9 % (0.0-4.0); HEMOGLOBIN 15.6 GM/DL (11.6-15.3); LYMPH % 20.9 % (9.0-44.0); LYMPHOCYTE # 2.2 TH/MM3 (1.0-4.8); MEAN CELL VOLUME 86.6 FL (80.0-100.0); MEAN CORPUSCULAR HEMOGLOBIN 28.6 PG (27.0-34.0); MEAN CORPUSCULAR HGB CONC 33.1 % (32.0-36.0); MEAN PLATELET VOLUME 10.2 FL (7.0-11.0); MONO % 10.3 % (0.0-8.0); MONOCYTE # 1.1 TH/MM3 (0-0.9); PLATELET COUNT 222 TH/MM3 (150-450); RED BLOOD COUNT 5.43 MIL/MM3 (4.00-5.30); RED CELL DISTRIBUTION WIDTH 15.4 % (11.6-17.2); WHITE BLOOD COUNT 10.7 TH/MM3 (4.0-11.0)
[2017-12-23 14:15] LABS: ALBUMIN 3.6 GM/DL (3.4-5.0); AST (GOT) 16 U/L (15-37); BICARBONATE 29.1 MEQ/L (21.0-32.0); BLOOD UREA NITROGEN 16 MG/DL (7-18); CALCIUM 9.6 MG/DL (8.5-10.1); CHLORIDE 105 MEQ/L (98-107); CREATININE 0.98 MG/DL (0.50-1.00); GLOMERULAR FILTRATION RATE 55 ML/MIN (>89); GLUCOSE,RANDOM 86 MG/DL (74-106); SODIUM (NA) 141 MEQ/L (136-145)
[2017-12-23 14:21] LABS: ALKALINE PHOSPHATASE 87 U/L (45-117); ALT (GPT) 24 U/L (10-53); TOTAL BILIRUBIN ADULT 0.6 MG/DL (0.2-1.0)
== END ==
LOC: PLAB 10:14
PROVIDERS: ATTEND Family Medicine
DX: R79.1 Abnormal coagulation profile (principal)
CPT/HCPCS: 36415; 80053; 85025

== ENCOUNTER → 2018-01-22 | Outpatient (CLI) | payer MEDICARE, OTHER | LOC: PLAB 09:11 | PROVIDERS: ATTEND Family Medicine | DX: R51 Headache (principal) | CPT/HCPCS: 36415; 85652; 86140 ==

== ENCOUNTER 2018-02-06 10:52 | Emergency (ER) | payer MEDICARE, OTHER ==
[~2018-02-06] VITALS: Ht 165.1 cm; Wt 140.0 kg
[2018-02-06 11:03] VITALS: BP 175/78; PULSE 72; RESP 20; TEMP 97.4; O2SAT 98
--- NOTE | 2018-02-06 11:20 | PD ---
HPI Chief Complaint: Numbness/Tingling Time Seen by Provider: 11:04 Travel History International Travel<30 days: No Contact w/Intl Traveler<30days: No Traveled to known affect area: No History of Present Illness HPI The patient was seen and examined in the presence of the nurse. 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 She started to get some pins and needle sensation in the area of the right anabaptist. Lasted about a minute and a half and started to improve. She has had this many times before. It has been evaluated by her physician and her neurologist. She also has history of trigeminal neuralgia on the same side. At this point symptoms have resolved. She was somewhat lightheaded. Not having headache or syncope or chest pain. Symptom severity is moderate. No alleviating factors. No exacerbating factors PFSH Past Medical History Hx Anticoagulant Therapy: Yes Arthritis: Yes Asthma: Yes Blood Disorders: No Heart Rhythm Problems: Yes (a-fib) Cancer: Yes (BASAL CELL CARCINOMA NOSE) Cardiovascular Problems: Yes High Cholesterol: Yes Chemotherapy: No Chest Pain: Yes Cerebrovascular Accident: Yes Diminished Hearing: No Endocrine: No Gastrointestinal Disorders: Yes (GERD) GERD: Yes Genitourinary: No Hypertension: Yes Immune Disorder: No Musculoskeletal: Yes Neurologic: Yes Psychiatric: No Reproductive: No Respiratory: Yes Radiation Therapy: No Seizures: Yes Sleep Apnea: Yes ?: Not Menopausal: Yes Ovarian Cysts: Yes Past Surgical History Abdominal Surgery: Yes (CHOLECYSECTOMY, APPENDECTOMY) AICD: No Appendectomy: Yes Arteriovenous Shunt: No Cholecystectomy: Yes Gynecologic Surgery: Yes (D&C) Insulin Pump: No Joint Replacement: No Pacemaker: No Other Surgery: Yes (LEFT BREAST LUMPECTOMY; TEMPORAL ARTERY BIOPSY;) Social History Alcohol Use: No Tobacco Use: No Substance Use: No Allergies-Medications (Allergen,Severity, Reaction): Coded Allergies: acebutolol (Unverified Allergy, Severe, 04/08/17) amlodipine (Unverified Allergy, Severe, NAUSEA,HEADACHE,VOMITING, 04/08/17) atenolol (Unverified Allergy, Severe, 04/08/17) atorvastatin (Unverified Allergy, Severe, NAUSEA,HEADACHE,VOMITING, ) betaxolol (Unverified Allergy, Severe, 04/08/17) carvedilol (Unverified Allergy, Severe, 04/08/17) cephalexin (Unverified Allergy, Severe, 04/08/17) diltiazem (Unverified Allergy, Severe, NAUSEA,HEADACHE,VOMITING, 04/08/17) doxepin (Unverified Allergy, Severe, 04/08/17) hydrochlorothiazide (Unverified Allergy, Severe, 04/08/17) iohexol (Unverified Allergy, Severe, Code 99 - Respiratory Failure, ) isradipine (Unverified Allergy, Severe, NAUSEA,HEADACHE,VOMITING, 04/08/17) labetalol (Unverified Allergy, Severe, 04/08/17) levothyroxine (Unverified Allergy, Severe, 04/08/17) levothyroxine sodium (Unverified Allergy, Severe, 04/08/17) medroxyprogesterone (Unverified Allergy, Severe, 04/08/17) metoprolol (Unverified Allergy, Severe, 04/08/17) monosodium glutamate (Unverified Allergy, Severe, 04/08/17) nebivolol (Unverified Allergy, Severe, 04/08/17) nicardipine (Unverified Allergy, Severe, NAUSEA,HEADACHE,VOMITING, 04/08/17 ) nifedipine (Unverified Allergy, Severe, NAUSEA,HEADACHE,VOMITING, 04/08/17) nimodipine (Unverified Allergy, Severe, NAUSEA,HEADACHE,VOMITING, 04/08/17) pindolol (Unverified Allergy, Severe, 04/08/17) prochlorperazine (Unverified Allergy, Severe, 04/08/17) propranolol (Unverified Allergy, Severe, 04/08/17) ranitidine (Unverified Allergy, Severe, 04/08/17) scopolamine (Unverified Allergy, Severe, 04/08/17) sotalol (Unverified Allergy, Severe, 04/08/17) ticlopidine (Unverified Allergy, Severe, 04/08/17) timolol (Unverified Allergy, Severe, 04/08/17) verapamil (Unverified Allergy, Severe, 04/08/17) MRI PRECAUTION (Verified Allergy, Mild, 10/19/11) codeine (Unverified Allergy, Mild, 04/08/17) diatrizoate meglumine (Unverified Allergy, Mild, 04/08/17) diazepam (Unverified Allergy, Mild, 04/08/17) diphenhydramine (Unverified Allergy, Mild, 04/08/17) doxazosin (Unverified Allergy, Mild, 04/08/17) gadobenic acid (Unverified Allergy, Mild, 04/08/17) gadodiamide (Unverified Allergy, Mild, 04/08/17) gadoteridol (Unverified Allergy, Mild, 04/08/17) iodixanol (Unverified Allergy, Mild, 04/08/17) phentolamine (Unverified Allergy, Mild, 04/08/17) prazosin (Unverified Allergy, Mild, 04/08/17) prednisone (Unverified Allergy, Mild, 04/08/17) terazosin (Unverified Allergy, Mild, 04/08/17) Uncoded Allergies: ASPARATINE (Allergy, Severe, 07/12/07) STERIODS (Allergy, Severe, 07/12/07) MUCINEX (Allergy, Mild, 10/19/11) Reported Meds & Prescriptions Reported Meds & Active Scripts Active Meclizine 25 (Meclizine HCl) 25 Mg Tab 12.5 Mg PO Q8H PRN Bedside Commode (Device) 1 Mis Mis Ea .ROUTE DIRECTED Walker Rolling/GetGo (Device) 1 Mis Mis Ea .ROUTE DIRECTED Bariatric Rollator/Extra (Device) 1 Mis Mis Ea .ROUTE DIRECTED Reported Warfarin 2.5 Mg Tab 2.5 Mg PO DAILY Mon, Wed, Fri Coumadin (Warfarin) 5 Mg Tab 5 Mg PO DAILY SAT,FRI,FRI, B12 (Cyanocobalamin) 1,000 Mcg Tab 1,000 Meq PO DAILY Lisinopril 10 Mg Tab 15 Mg PO BID Flovent Hfa 12 GM Inh (Fluticasone Propionate) 220 Mcg/Act Inh 1 Puff INH DAILY Use daily at the same time. Aciphex (Rabeprazole Sodium) 20 Mg Tab 20 Mg PO DAILY Review of Systems General / Constitutional: No: Fever Eyes: No: Visual changes HENT: Positive: Lightheadedness, No: Headaches Cardiovascular: No: Chest Pain or Discomfort Respiratory: No: Shortness of Breath Gastrointestinal: No: Abdominal Pain Genitourinary: No: Dysuria Musculoskeletal: Positive: Weakness, No: Pain Skin: No Rash Neurologic: Positive: Weakness, Paresthesia Psychiatric: No: Depression Endocrine: No: Polydipsia Hematologic/Lymphatic: No: Easy Bruising Physical Exam Narrative GENERAL: Well-nourished, well-developed patient in no apparent distress. SKIN: Focused skin assessment reveals no rash and nodules. Skin is Warm and dry. HEAD: Atraumatic. Normocephalic. EYES: Pupils equal and round. No scleral icterus. No injection or drainage. ENT: No nasal bleeding or discharge. Mucous membranes pink and moist. Has some erythematous and thickened skin to the nose in a uniform fashion NECK: Trachea midline. No JVD. CARDIOVASCULAR: Regular rate and rhythm. No murmur appreciated. RESPIRATORY: No accessory muscle use. Clear to auscultation. Breath sounds equal bilaterally. GASTROINTESTINAL: Abdomen soft, non-tender, nondistended. Hepatic and splenic margins not palpable. MUSCULOSKELETAL: No obvious deformities. No clubbing. No cyanosis. No edema. NEUROLOGICAL: Awake and alert. No obvious cranial nerve deficits. Motor grossly within normal limits. Normal speech. Sensation is intact to sharp and light touch including the right side of her face and head PSYCHIATRIC: Appropriate mood and affect; insight and judgment normal. Data Data Last Documented VS Vital Signs Date Time Temp Pulse Resp B/P (MAP) Pulse Ox O2 Delivery O2 Flow Rate FiO2 02/06/18 11:03 97.4 72 20 175/78 (110) 98 Orders Orders Iv Access Insert/Monitor (02/06/18 11:13) Complete Blood Count With Diff (02/06/18 11:13) Basic Metabolic Panel (Bmp) (02/06/18 11:13) Prothrombin Time / Inr (Pt) (02/06/18 11:13) Labs Laboratory Tests Test 02/06/18 11:26 02/06/18 12:52 Prothrombin Time 18.1 SEC Prothromb Time International Ratio 1.8 RATIO Blood Urea Nitrogen 20 MG/DL Creatinine 1.00 MG/DL Random Glucose 80 MG/DL Calcium Level 9.0 MG/DL Sodium Level 140 MEQ/L Potassium Level 4.5 MEQ/L Chloride Level 107 MEQ/L Carbon Dioxide Level 23.2 MEQ/L Anion Gap 10 MEQ/L Estimat Glomerular Filtration Rate 54 ML/MIN White Blood Count 10.5 TH/MM3 Red Blood Count 5.63 MIL/MM3 Hemoglobin 15.8 GM/DL Hematocrit 48.0 % Mean Corpuscular Volume 85.3 FL Mean Corpuscular Hemoglobin 28.0 PG Mean Corpuscular Hemoglobin Concent 32.9 % Red Cell Distribution Width 15.3 % Platelet Count 248 TH/MM3 Mean Platelet Volume 9.4 FL Neutrophils (%) (Auto) 74.4 % Lymphocytes (%) (Auto) 16.3 % Monocytes (%) (Auto) 7.8 % Eosinophils (%) (Auto) 0.7 % Basophils (%) (Auto) 0.8 % Neutrophils # (Auto) 7.8 TH/MM3 Lymphocytes # (Auto) 1.7 TH/MM3 Monocytes # (Auto) 0.8 TH/MM3 Eosinophils # (Auto) 0.1 TH/MM3 Basophils # (Auto) 0.1 TH/MM3 CBC Comment DIFF FINAL Differential Comment MDM Medical Decision Making Medical Screen Exam Complete: Yes Emergency Medical Condition: Yes Medical Record Reviewed: Yes Differential Diagnosis Trigeminal neuralgia, TIA, peripheral neuropathy Narrative Course I have reviewed the patient's electronic medical record. IV placed and labs sent Patient has no objective findings and is neurologically intact I reviewed her labs. No emergent things found there. I observed her for several hours and there is been no recurrence of her symptoms or anything else Etiology is not entirely clear. May be related to her trigeminal neuralgia. It is in the same general vicinity and repeat ordered as paresthesias. Does not seem consistent with acute CVA or seizure. Stable for outpatient primary care and neurology follow-up Diagnosis Primary Impression: Facial paresthesia Additional Instructions: The patient was advised to follow up with their physician and return if they worsen. Med/Other Pt SpecificInfo: Other Disposition: 01 DISCHARGE HOME Condition: Stable Rudolph Robbins MD Feb 06, 2018 11:20
[2018-02-06] MEDS ORDERED: ACIP20TA19 PO (12:19)
[2018-02-06] MEDS ORDERED: FLUTI220I INH (12:19)
[2018-02-06 12:21] LABS: INTERNATIONAL NORMALIZED RATIO 1.8 RATIO; PROTHROMBIN TIME - PATIENT 18.1 SEC (9.8-11.6)
[2018-02-06] MEDS ORDERED: COUM5TAB PO (12:28)
[2018-02-06] MEDS ORDERED: LISI10TA3 PO (12:28)
[2018-02-06] MEDS ORDERED: CYAN1TAB24 PO (12:28)
[2018-02-06] MEDS ORDERED: WARF-18 PO (12:28)
[2018-02-06 12:44] LABS: BICARBONATE 23.2 MEQ/L (21.0-32.0)
[2018-02-06 14:08] LABS: AUTOMATED NEUTROPHIL # 7.8 TH/MM3 (1.8-7.7); BASOPHIL # 0.1 TH/MM3 (0-0.2); BASOPHIL % 0.8 % (0.0-2.0); EOSINOPHIL # 0.1 TH/MM3 (0-0.4); EOSINOPHIL % 0.7 % (0.0-4.0); HEMOGLOBIN 15.8 GM/DL (11.6-15.3); LYMPH % 16.3 % (9.0-44.0); LYMPHOCYTE # 1.7 TH/MM3 (1.0-4.8); MEAN CELL VOLUME 85.3 FL (80.0-100.0); MEAN CORPUSCULAR HGB CONC 32.9 % (32.0-36.0); MEAN PLATELET VOLUME 9.4 FL (7.0-11.0); MONO % 7.8 % (0.0-8.0); MONOCYTE # 0.8 TH/MM3 (0-0.9); NEUT % 74.4 % (16.0-70.0); PLATELET COUNT 248 TH/MM3 (150-450); RED BLOOD COUNT 5.63 MIL/MM3 (4.00-5.30); RED CELL DISTRIBUTION WIDTH 15.3 % (11.6-17.2); WHITE BLOOD COUNT 10.5 TH/MM3 (4.0-11.0)
== END 2018-02-06 17:15 | disposition home or self-care (01) ==
LOC: NEPE 10:52
DX: C44.311 Basal cell carcinoma of skin of nose (principal); R20.2 Paresthesia of skin; I10 Essential (primary) hypertension; I48.91 Unspecified atrial fibrillation; Z79.01 Long term (current) use of anticoagulants
CPT/HCPCS: 80048; 85025; 85610; 99283

== ENCOUNTER 2018-10-14 11:48 | Observation (INO) ==
--- NOTE | 2018-10-14 13:07 | ED ---
HPI General Chief Complaint: Chest Pain Stated Complaint: Chest Pain Time Seen by Provider: 10/14/18 12:26 Source: patient and RN notes reviewed Mode of arrival: EMS Limitations: no limitations History of Present Illness HPI narrative: 77-year-old female presents to the emergency department via EMS for evaluation of chest pain. She states she started with a squeezing sensation to her left head that radiated to the neck started around 9 AM. She states it lasted approximate 45 seconds, was a 7 out of 10. She states that she started with substernal chest pain approximate 30 minutes before EMS arrived. She states it was a pressure, 5/10 which is now gone. She states she sat up and belched and the pain went away. She states she has been having some left-sided sharp pain over the past few days. She also reports shortness of breath for approximately 4-5 days and nausea. Patient states that she sees Dr. Hank felix for focal seizures. She states her focal seizures are usually the squeezing feeling she was feeling earlier. She states they are trending down her Dilantin. He was going to start her on oxcarbazepine, but she states that she is allergic to Tegretol and has not started this yet. Patient states her neurologist is Dr. Hank felix. Patient does not see a dental appliance repairer. She has not had a stress test or cardiac catheterization recently. She does have history of A. 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 Patient states she woke up this morning with dizziness which is not abnormal for her. She has had this since 1977 when she had a vertebral artery occlusion. She took off of her meclizine with relief. She also reports associated fatigue. Moderate severity. MD complaint: Reports chest pain STEMI Alert: No Onset (ago): minute(s) (45) Duration: now resolved Onset: during rest Pain location: Reports substernal Severity: moderate Severity scale (1-10): 5 Quality: Reports other (pressure) Pain radiation: Reports none Relieving factors: other (belching) Exacerbating factors: nothing Associated symptoms: Reports nausea, dyspnea and other ("squeezing" in head typical of focal seizure); Denies vomiting, diaphoresis, sense of impending doom , syncope, palpitations, fever, cough and leg swelling Treatments prior to arrival chest pain: Reports none Related Data Home Medications Medication Instructions Recorded Confirmed acetaminophen [Tylenol] 650 mg PO Q4H PRN 10/14/18 10/14/18 carboxymethylcellulose sodium 1 drp EACH EYE Q3-4H PRN 10/14/18 10/14/18 [Refresh Tears] fluticasone [Flovent HFA] 1 puff INHALATION DAILY 10/14/18 10/14/18 lisinopril 10 mg PO DAILY 10/14/18 10/14/18 meclizine 6.25 mg PO Q4H PRN 10/14/18 10/14/18 phenytoin sodium extended 100 mg PO QAM 10/14/18 10/14/18 [Dilantin Kapseal] phenytoin sodium extended 200 mg PO BID 10/14/18 10/14/18 [Dilantin Kapseal] sodium chloride [Saline Nasal] 1 spray INTRANASAL DIRECTED PRN 10/14/1810/14 warfarin [Coumadin] 5 mg PO 4XW 10/14/18 10/14/18 warfarin [Coumadin] 7.5 mg PO 3XW 10/14/18 10/14/18 Allergies Allergy/AdvReac Type Severity Reaction Status Date / Time acebutolol Allergy Severe Unverified 04/08/17 16:21 amlodipine Allergy Severe NAUSEA,HEAD Unverified 04/08/17 16:21 ACHE,VOMITI NG atenolol Allergy Severe Unverified 04/08/17 16:21 atorvastatin Allergy Severe NAUSEA,HEAD Unverified 04/08/17 16:21 ACHE,VOMITI NG betaxolol Allergy Severe Unverified 04/08/17 16:21 carvedilol Allergy Severe Unverified 04/08/17 16:21 cephalexin Allergy Severe Unverified 04/08/17 16:21 diltiazem Allergy Severe NAUSEA,HEAD Unverified 04/08/17 16:21 ACHE,VOMITI NG doxepin Allergy Severe Unverified 04/08/17 16:21 hydrochlorothiazide Allergy Severe Unverified 04/08/17 16:21 iohexol Allergy Severe Code 99 - Unverified 04/08/17 16:21 Respiratory Failure isradipine Allergy Severe NAUSEA,HEAD Unverified 04/08/17 16:21 ACHE,VOMITI NG labetalol Allergy Severe Unverified 04/08/17 16:21 levothyroxine Allergy Severe Unverified 04/08/17 16:21 levothyroxine sodium Allergy Severe Unverified 04/08/17 16:21 medroxyprogesterone Allergy Severe Unverified 04/08/17 16:21 metoprolol Allergy Severe Unverified 04/08/17 16:21 monosodium glutamate Allergy Severe Unverified 04/08/17 16:21 nebivolol Allergy Severe Unverified 04/08/17 16:21 nicardipine Allergy Severe NAUSEA,HEAD Unverified 04/08/17 16:21 ACHE,VOMITI NG nifedipine Allergy Severe NAUSEA,HEAD Unverified 04/08/17 16:21 ACHE,VOMITI NG nimodipine Allergy Severe NAUSEA,HEAD Unverified 04/08/17 16:21 ACHE,VOMITI NG pindolol Allergy Severe Unverified 04/08/17 16:21 prochlorperazine Allergy Severe Unverified 04/08/17 16:21 propranolol Allergy Severe Unverified 04/08/17 16:21 ranitidine Allergy Severe Unverified 04/08/17 16:21 scopolamine Allergy Severe Unverified 04/08/17 16:21 sotalol Allergy Severe Unverified 04/08/17 16:21 ticlopidine Allergy Severe Unverified 04/08/17 16:21 timolol Allergy Severe Unverified 04/08/17 16:21 verapamil Allergy Severe Unverified 04/08/17 16:21 codeine Allergy Mild Unverified 04/08/17 16:21 diatrizoate meglumine Allergy Mild Unverified 04/08/17 16:21 diazepam Allergy Mild Unverified 04/08/17 16:21 diphenhydramine Allergy Mild Unverified 04/08/17 16:21 doxazosin Allergy Mild Unverified 04/08/17 16:21 gadobenic acid Allergy Mild Unverified 04/08/17 16:21 gadodiamide Allergy Mild Unverified 04/08/17 16:21 gadoteridol Allergy Mild Unverified 04/08/17 16:21 iodixanol Allergy Mild Unverified 04/08/17 16:21 phentolamine Allergy Mild Unverified 04/08/17 16:21 prazosin Allergy Mild Unverified 04/08/17 16:21 prednisone Allergy Mild Unverified 04/08/17 16:21 terazosin Allergy Mild Unverified 04/08/17 16:21 ASPARATINE Allergy Severe Uncoded 07/12/07 06:22 STERIODS Allergy Severe Uncoded 07/12/07 06:22 MRI PRECAUTION Allergy Mild Uncoded 10/19/11 08:01 MUCINEX Allergy Mild Uncoded 10/19/11 08:04 Review of Systems ROS: all other systems reviewed are negative [facility] Medical History Medical History CVA (cerebral vascular accident) (Acute) Chest pain (Acute) FH: cholecystectomy (Acute) Fibromyalgia (Acute) Hypertension (Acute) Ovarian cyst (Acute) Thyroid nodule (Acute) Surgical History Surgical History H/O dilation and curettage (Acute) H/O exploratory laparotomy (Acute) History of biopsy of temporal artery (Acute) Social History Social History Substance History: No History of Abuse Second Hand Smoke Exposure: No Smoking Status: Former smoker Tobacco Type: Cigarettes How Often Do You Have a Drink Containing Alcohol: Never Exam Narrative Exam Narrative: GENERAL: Well-nourished, well-developed female patient, afebrile SKIN: Focused skin assessment warm/dry. HEAD: Normocephalic. Atraumatic EYES: No scleral icterus. No injection or drainage. NECK: Supple, trachea midline. No JVD or lymphadenopathy. CARDIOVASCULAR: Regular rate and rhythm without murmurs, gallops, or rubs. Bilateral radial and pedal pulses are 2+ RESPIRATORY: Breath sounds equal bilaterally. No accessory muscle use. Lung sounds are clear to auscultation GASTROINTESTINAL: Abdomen soft, non-tender, nondistended. MUSCULOSKELETAL: No cyanosis, or edema. Bilateral upper and lower extremity strength 5/5. All extremities are neurovascularly intact. BACK: Nontender without obvious deformity. No CVA tenderness. NEUROLOGICAL: Awake and alert. Cranial nerves II through XII intact. Motor and sensory grossly within normal limits. Five out of 5 muscle strength in all muscle groups. Normal speech. Finger to nose is normal bilaterally. [id number] is normal bilaterally. Course Initial Documented Vital Signs Pulse Rate 66 10/14/18 13:10 Respiratory Rate 20 10/14/18 13:10 Pulse Oximetry 95 10/14/18 13:10 Last Documented Vital Signs Temperature 97.8 F 10/15/18 12:00 Pulse Rate 93 H 02/21/19 12:00 Respiratory Rate 18 10/15/18 12:00 Blood Pressure 167/73 H 10/15/18 12:00 Pulse Oximetry 95 10/15/18 12:00 Medical Decision Making BELINDA Attestation BELINDA supervised visit: Yes Attestation: I, Dr. Lovell, have reviewed the advance practice practitioner' s documentation and am in agreement, met with the patient face to face, made the diagnosis, and the medical decision making was done by me. The patient was initially evaluated by Hanh Joseph. Please see their complete history and physical. MDM Narrative Medical decision making narrative: 77-year-old female presents to the emergency department for evaluation of squeezing in her head typical of her focal seizures and chest pain. Both are now resolved. IV access is obtained. EKG, CBC, CMP, lipase, magnesium, CK, troponin, PTT, PT/INR, Dilantin level, chest x- ray, CT the head are ordered and pending. CBC shows no acute abnormalities. CMP shows no acute abnormalities. Lipase is 182. Magnesium is 2.1. CK is 53. Troponin is less than 0.02. PTT is 40.8. PT/INR is 26.8/2.7. Dilantin level is 15.7. Chest x-ray shows no acute disease. CT of the head is stable. Squeezing of the head for 45 seconds sounds like patient's focal seizures. Her Dilantin level is therapeutic. She reports chronic dizziness, no different than her normal. She takes meclizine for this. Patient will be admitted to the chest pain center to rule out ACS. The patient agrees to this. Medical Screen Exam Complete: Yes Emergency Medical Condition: Yes Differential Diagnosis Differential Diagnosis: Focal seizure versus ACS versus GERD versus pneumonia versus chest wall pain Medical Records Medical records reviewed: Yes I reviewed the patient's medical records. Lab Data Result diagrams: 10/14/18 13:08 10/14/18 13:08 Lab Results 10/14/18 10/14/18 10/14/18 Range/Units 13:00 13:08 13:08 WBC 8.4 (4.0-11.0) th/mm3 RBC 5.48 H (4.00-5.30) mil/mm3 Hgb 16.5 H (11.6-15.3) gm/dL Hct 48.9 H (35.0-46.0) % MCV 89.2 (80.0-100.0) fL MCH 30.1 (27.0-34.0) pg MCHC 33.8 (32.0-36.0) % RDW 14.8 (11.6-17.2) % Plt Count 194 (150-450) th/mm3 MPV 9.4 (7.0-11.0) fL Neut % (Auto) 68.9 (16.0-70.0) % Lymph % (Auto) 20.1 (9.0-44.0) % [place] % (Auto) 9.6 H (0.0-8.0) % Eos % (Auto) 0.7 (0.0-4.0) % Baso % (Auto) 0.7 (0.0-2.0) % Neut # (Auto) 5.8 (1.8-7.7) th/mm3 Lymph # (Auto) 1.7 (1.0-4.8) th/mm3 [place] # (Auto) 0.8 (0.0-0.9) th/mm3 Eos # (Auto) 0.1 (0.0-0.4) th/mm3 Baso # (Auto) 0.1 (0.0-0.2) th/mm3 WBC Differential . Differential Comment Auto diff final PT (9.8-11.6) sec INR Ratio APTT (23.4-31.7) sec Sodium 140 (136-145) meq/L Potassium 4.1 (3.5-5.1) meq/L Chloride 105 (98-107) meq/L Carbon Dioxide 27.9 (21.0-32.0) meq/L Anion Gap 7 (5-15) meq/L BUN 15 (7-18) mg/dL Creatinine 0.92 (0.50-1.00) mg/dL Estimated GFR 59 L (>89) mL/min Random Glucose 96 (74-106) mg/dL Calcium 8.8 (8.5-10.1) mg/dL Magnesium Cancelled 2.1 Total Bilirubin 0.4 (0.2-1.0) mg/dL AST 32 (15-37) U/L ALT 50 (10-53) U/L Alkaline Phosphatase 142 H (45-117) U/L Total Creatine Kinase Cancelled 53 Troponin I Less than 0.02 L (0.02-0.05) ng/mL B-Natriuretic Peptide (0-100) pg/mL Total Protein 7.4 (6.4-8.2) g/dL Albumin 3.5 (3.4-5.0) g/dL Lipase 182 (73-393) U/L Phenytoin 15.7 (10.0-20.0) mcg/mL 10/14/18 10/14/18 10/14/18 Range/Units 13:08 13:08 19:55 WBC (4.0-11.0) th/mm3 RBC (4.00-5.30) mil/mm3 Hgb (11.6-15.3) gm/dL Hct (35.0-46.0) % MCV (80.0-100.0) fL MCH (27.0-34.0) pg MCHC (32.0-36.0) % RDW (11.6-17.2) % Plt Count (150-450) th/mm3 MPV (7.0-11.0) fL Neut % (Auto) (16.0-70.0) % Lymph % (Auto) (9.0-44.0) % [place] % (Auto) (0.0-8.0) % Eos % (Auto) (0.0-4.0) % Baso % (Auto) (0.0-2.0) % Neut # (Auto) (1.8-7.7) th/mm3 Lymph # (Auto) (1.0-4.8) th/mm3 [place] # (Auto) (0.0-0.9) th/mm3 Eos # (Auto) (0.0-0.4) th/mm3 Baso # (Auto) (0.0-0.2) th/mm3 WBC Differential Differential Comment PT 26.8 H (9.8-11.6) sec INR 2.7 Ratio APTT 40.8 H (23.4-31.7) sec Sodium (136-145) meq/L Potassium (3.5-5.1) meq/L Chloride (98-107) meq/L Carbon Dioxide (21.0-32.0) meq/L Anion Gap (5-15) meq/L BUN (7-18) mg/dL Creatinine (0.50-1.00) mg/dL Estimated GFR (>89) mL/min Random Glucose (74-106) mg/dL Calcium (8.5-10.1) mg/dL Magnesium Total Bilirubin (0.2-1.0) mg/dL AST (15-37) U/L ALT (10-53) U/L Alkaline Phosphatase (45-117) U/L Total Creatine Kinase 58 Troponin I Less than 0.02 L (0.02-0.05) ng/mL B-Natriuretic Peptide 102 H (0-100) pg/mL Total Protein (6.4-8.2) g/dL Albumin (3.4-5.0) g/dL Lipase (73-393) U/L Phenytoin (10.0-20.0) mcg/mL 10/15/18 Range/Units 00:30 WBC (4.0-11.0) th/mm3 RBC (4.00-5.30) mil/mm3 Hgb (11.6-15.3) gm/dL Hct (35.0-46.0) % MCV (80.0-100.0) fL MCH (27.0-34.0) pg MCHC (32.0-36.0) % RDW (11.6-17.2) % Plt Count (150-450) th/mm3 MPV (7.0-11.0) fL Neut % (Auto) (16.0-70.0) % Lymph % (Auto) (9.0-44.0) % [place] % (Auto) (0.0-8.0) % Eos % (Auto) (0.0-4.0) % Baso % (Auto) (0.0-2.0) % Neut # (Auto) (1.8-7.7) th/mm3 Lymph # (Auto) (1.0-4.8) th/mm3 [place] # (Auto) (0.0-0.9) th/mm3 Eos # (Auto) (0.0-0.4) th/mm3 Baso # (Auto) (0.0-0.2) th/mm3 WBC Differential Differential Comment PT (9.8-11.6) sec INR Ratio APTT (23.4-31.7) sec Sodium (136-145) meq/L Potassium (3.5-5.1) meq/L Chloride (98-107) meq/L Carbon Dioxide (21.0-32.0) meq/L Anion Gap (5-15) meq/L BUN (7-18) mg/dL Creatinine (0.50-1.00) mg/dL Estimated GFR (>89) mL/min Random Glucose (74-106) mg/dL Calcium (8.5-10.1) mg/dL Magnesium Total Bilirubin (0.2-1.0) mg/dL AST (15-37) U/L ALT (10-53) U/L Alkaline Phosphatase (45-117) U/L Total Creatine Kinase 67 Troponin I Less than 0.02 L (0.02-0.05) ng/mL B-Natriuretic Peptide (0-100) pg/mL Total Protein (6.4-8.2) g/dL Albumin (3.4-5.0) g/dL Lipase (73-393) U/L Phenytoin (10.0-20.0) mcg/mL Imaging Data Radiologist's impression: Chest X-Ray 10/14/18 12:41 CONCLUSION: No acute disease Head CT 10/14/18 12:41 CONCLUSION: 1. Stable negative noncontrast head CT. Myocardial Perfusion Scan Nuc Med 10/15/18 07:42 CONCLUSION: Unremarkable myocardial perfusion scan. Discharge Plan Discharge Disposition Patient Disposition: ED Admit(ED Internal Use Only) Discharge Condition Condition: Stable Discharge Order Discharge Orders: Discharge Order (Routine); Ordered 10/15/18 Ordered By: Sourav Dawn ED Use Only Admit Order (Routine); Ordered 10/14/18 Ordered By: Hanh Joseph Discharge Details Diagnosis: Chest pain Physicians Team ED Provider: Jese Lovell ED Midlevel Provider: Hanh Joseph Primary Care Provider: Adrianne Moreira Attending Provider: Jeremías Juarez Status ED Status: Left Department Discharge Information Discharge Date/Time: 10/14/18 16:45
--- NOTE | 2018-10-14 13:12 | XR ---
EXAM DATE: 10/14/2018 1:07 PM EST AGE/SEX: 77 years / Female INDICATIONS: Chest pain and pressure. CLINICAL DATA: This is the patient's initial encounter. Patient reports that signs and symptoms have been present for 1 day and indicates a pain score of 8/10. MEDICAL/SURGICAL HISTORY: . Stroke. Hypercholesterolemia. Gastroesophageal reflux disease. Glas ses. Seizures. Chest pain. Atrial fibrillation. Hypertension. Sleep apnea. Ovarian cysts. Arthritis. . Dilation and curettage. Left elbow surgery. COMPARISON: [facility], XR CHEST PA AND LAT, 02/14/2016. . FINDINGS: A single AP view of the chest demonstrates the lungs to be symmetrically aerated without evidence of mass, infiltrate or effusion. The cardiomediastinal contours are unremarkable. Osseous structures a re intact. CONCLUSION: No acute disease Electronically signed by: Imtiaz Lopez MD Board Certified Radiologist 10/14/2018 1:11 PM EST
[2018-10-14 13:49] LABS: Baso # (Auto) 0.1 th/mm3 (0.0-0.2); Baso % (Auto) 0.7 % (0.0-2.0); Eos # (Auto) 0.1 th/mm3 (0.0-0.4); Eos % (Auto) 0.7 % (0.0-4.0); Hematocrit 48.9 % (35.0-46.0); Hemoglobin 16.5 gm/dL (11.6-15.3); Lymph # (Auto) 1.7 th/mm3 (1.0-4.8); Lymph % (Auto) 20.1 % (9.0-44.0); Mean Corpuscular HGB Conc 33.8 % (32.0-36.0); Mean Corpuscular Hemoglobin 30.1 pg (27.0-34.0); Mean Corpuscular Volume 89.2 fL (80.0-100.0); Mean Platelet Volume 9.4 fL (7.0-11.0); Mono # (Auto) 0.8 th/mm3 (0.0-0.9); Mono % (Auto) 9.6 % (0.0-8.0); Neut # (Auto) 5.8 th/mm3 (1.8-7.7); Neut % (Auto) 68.9 % (16.0-70.0); Platelet Count 194 th/mm3 (150-450); Red Blood Count 5.48 mil/mm3 (4.00-5.30); Red Cell Distribution Width 14.8 % (11.6-17.2); White Blood Count 8.4 th/mm3 (4.0-11.0)
[2018-10-14 13:57] LABS: Activated Partial Thrombo Time 40.8 sec (23.4-31.7); INR 2.7 Ratio; Prothrombin Time 26.8 sec (9.8-11.6)
[2018-10-14 14:05] LABS: Albumin 3.5 g/dL (3.4-5.0); Anion Gap 7 meq/L (5-15); Aspartate Aminotransferase 32 U/L (15-37); Blood Urea Nitrogen 15 mg/dL (7-18); Calcium 8.8 mg/dL (8.5-10.1); Carbon Dioxide 27.9 meq/L (21.0-32.0); Chloride 105 meq/L (98-107); Glomerular Filtration Rate 59 mL/min (>89); Glucose,Random 96 mg/dL (74-106); Lipase 182 U/L (73-393); Magnesium 2.1 mg/dL (1.5-2.5); Potassium 4.1 meq/L (3.5-5.1); Sodium 140 meq/L (136-145)
[2018-10-14 14:08] LABS: Alanine Aminotransferase 50 U/L (10-53); Alkaline Phosphatase 142 U/L (45-117); Phenytoin (Dilantin) 15.7 mcg/mL (10.0-20.0); Total Protein 7.4 g/dL (6.4-8.2)
[2018-10-14 14:10] LABS: Creatine Kinase 53 U/L (26-192)
--- NOTE | 2018-10-14 14:57 | CT ---
EXAM DATE: 10/14/2018 2:52 PM EST AGE/SEX: 77 years / Female INDICATIONS: Headache. CLINICAL DATA: This is the patient's initial encounter. Patient reports that signs and symptoms have been present for 1 day and indicates a pain score of 3/10. MEDICAL/SURGICAL HISTORY: Seizures. Hypertension. Stroke. A-fib. None. RADIATION DOSE: 40.12 CTDI (mGy) COMPARISON: [facility] [place], CT BRAIN W/O CONTRAST, 05/01/2017. . TECHNIQUE: CT of the head without contrast. Using automated exposure control and adjustment of the mA and/or kV according to patient size, radiation dose was kept as low as reasonably achievable to ob tain optimal diagnostic quality images. DICOM format image data is available electronically for revi ew and comparison. FINDINGS: Cerebrum: The ventricles are normal for age. No evidence of midline shift, mass lesion, hemorrhage or acute infarction. No extraaxial fluid collections are seen. Posterior Fossa: The cerebellum and brainstem are intact. The 4th ventricle is midline. The cerebe llopontine angle is unremarkable. Extracranial: The visualized portion of the orbits is intact. Skull: The calvaria is intact. No evidence of skull fracture. CONCLUSION: 1. Stable negative noncontrast head CT. Electronically signed by: Donny Willard MD Board Certified Radiologist 10/14/2018 2:55 PM EST
[2018-10-14] MEDS ORDERED: Sodium Chloride 0.65% Nasal Spray 45 ML Bottle EACH NARE PRN (16:56)
[2018-10-14] MEDS ORDERED: Carboxymethylcellulose 0.5% Opth Drops 15 ML Bottle EACH EYE PRN (16:56)
--- NOTE | 2018-10-14 17:00 | P.HPCA ---
History of Present Illness Primary Care Physician: MD Dr. Myriam Wood neurology Dr. Leija GI Chief Complaint: Chest pain History of Present Illness: Very complex and verbose patient followed by Dr. Moreira. 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 This created a significant amount of anxiety which subsequently led to chest pain. She subsequently relates to me for different types of chest pain however the presenting pain today is described as follows: Current chest pain. Upper epigastric low sternal pressure-like lasting for 15- 20 minutes about a 7 out of 10 intensity and associated with a feeling of sense of doom. This was relieved by an episode of belching. Second type of chest pain. For about 2 months she has been having sharp chest pain which awakens her from sleep 3-4 times a week. This typically is on the right side of her chest and radiates up towards her ear. It is generally relieved by belching. Third chest pain. Sharp left upper chest pain radiating to her left arm and elbow which began just prior to last weekend and lasted fairly constantly for about 2 days. Fourth chest pain pain that began in the mid left chest and radiated almost to her left axilla. This was fairly severe but a relatively brief duration and was again relieved by burping. Patient has a long history of GERD previously followed by Dr. Leija but with no evaluation over the last 5 years. She also has a history of asthma followed by Dr. Augusto Sosa. She has episodes of severe coughing which will last for 10-20 minutes and leaves her with significant discomfort in her chest. Patient has a history of a CVA and subsequent seizure disorder followed by Dr. Miguel and treated with Dilantin. This is apparently a very atypical type of seizure disorder thought to be a focal seizure. Patient has a history of a CVA with significant hemiparetic paralysis that gradually resolved. Chronic hypertension but well controlled and followed by Dr. Moreira Multiple allergies resulting in considerable anxiety regarding any testing in the hospital. She does have risk factors of hypertension and a family history however the family history is predominantly hypertension and congestive heart failure. She is currently pain-free and is accompanied by her caregiver who is remaining in the room with her. - Diagnosis (1) Hypertension (2) GERD (gastroesophageal reflux disease) (3) Asthma (4) CVA (cerebral vascular accident) (5) Arthritis (6) Focal motor seizure disorder (7) Dizziness of unknown cause (8) Edema (9) Atrial fibrillation PMFSH - History History Provided By: Patient - Medical History Medical History: Medical History (Last Updated 10/14/18 @ 16:56 by Jeremías Juarez MD) CVA (cerebral vascular accident) Chest pain FH: cholecystectomy Fibromyalgia Hypertension Ovarian cyst Thyroid nodule - Surgical History Surgical History: Surgical History (Last Updated 10/14/18 @ 16:49 by Jeremías Juarez MD) H/O dilation and curettage H/O exploratory laparotomy History of biopsy of temporal artery - Tobacco History Second Hand Smoke Exposure: No Smoking Status: Never smoker - Alcohol History How Often Do You Have a Drink Containing Alcohol: Never - Substance Use History Substance History: No History of Abuse - Travel History Recent Travel in the [place] Within the Last 8 Weeks: No Recent Travel Out of the Country Within the Last 8 Weeks: No - Immunization History Tetanus Immunization: <5 Years Medications and Allergies Active Medications: Active Medications Sodium Chloride (Ns Flush) 2 ml IV.FLUSH UNSCH PRN PRN Reason: FLUSH AFTER USING IV ACCESS Sodium Chloride (Ns Flush) 2 ml IV.FLUSH BID RUSLAN Allergies Allergy/AdvReac Type Severity Reaction Status Date / Time acebutolol Allergy Severe Unverified 04/08/17 16:21 amlodipine Allergy Severe NAUSEA,HEAD Unverified 04/08/17 16:21 ACHE,VOMITI NG atenolol Allergy Severe Unverified 04/08/17 16:21 atorvastatin Allergy Severe NAUSEA,HEAD Unverified 04/08/17 16:21 ACHE,VOMITI NG betaxolol Allergy Severe Unverified 04/08/17 16:21 carvedilol Allergy Severe Unverified 04/08/17 16:21 cephalexin Allergy Severe Unverified 04/08/17 16:21 diltiazem Allergy Severe NAUSEA,HEAD Unverified 04/08/17 16:21 ACHE,VOMITI NG doxepin Allergy Severe Unverified 04/08/17 16:21 hydrochlorothiazide Allergy Severe Unverified 04/08/17 16:21 iohexol Allergy Severe Code 99 - Unverified 04/08/17 16:21 Respiratory Failure isradipine Allergy Severe NAUSEA,HEAD Unverified 04/08/17 16:21 ACHE,VOMITI NG labetalol Allergy Severe Unverified 04/08/17 16:21 levothyroxine Allergy Severe Unverified 04/08/17 16:21 levothyroxine sodium Allergy Severe Unverified 04/08/17 16:21 medroxyprogesterone Allergy Severe Unverified 04/08/17 16:21 metoprolol Allergy Severe Unverified 04/08/17 16:21 monosodium glutamate Allergy Severe Unverified 04/08/17 16:21 nebivolol Allergy Severe Unverified 04/08/17 16:21 nicardipine Allergy Severe NAUSEA,HEAD Unverified 04/08/17 16:21 ACHE,VOMITI NG nifedipine Allergy Severe NAUSEA,HEAD Unverified 04/08/17 16:21 ACHE,VOMITI NG nimodipine Allergy Severe NAUSEA,HEAD Unverified 04/08/17 16:21 ACHE,VOMITI NG pindolol Allergy Severe Unverified 04/08/17 16:21 prochlorperazine Allergy Severe Unverified 04/08/17 16:21 propranolol Allergy Severe Unverified 04/08/17 16:21 ranitidine Allergy Severe Unverified 04/08/17 16:21 scopolamine Allergy Severe Unverified 04/08/17 16:21 sotalol Allergy Severe Unverified 04/08/17 16:21 ticlopidine Allergy Severe Unverified 04/08/17 16:21 timolol Allergy Severe Unverified 04/08/17 16:21 verapamil Allergy Severe Unverified 04/08/17 16:21 codeine Allergy Mild Unverified 04/08/17 16:21 diatrizoate meglumine Allergy Mild Unverified 04/08/17 16:21 diazepam Allergy Mild Unverified 04/08/17 16:21 diphenhydramine Allergy Mild Unverified 04/08/17 16:21 doxazosin Allergy Mild Unverified 04/08/17 16:21 gadobenic acid Allergy Mild Unverified 04/08/17 16:21 gadodiamide Allergy Mild Unverified 04/08/17 16:21 gadoteridol Allergy Mild Unverified 04/08/17 16:21 iodixanol Allergy Mild Unverified 04/08/17 16:21 phentolamine Allergy Mild Unverified 04/08/17 16:21 prazosin Allergy Mild Unverified 04/08/17 16:21 prednisone Allergy Mild Unverified 04/08/17 16:21 terazosin Allergy Mild Unverified 04/08/17 16:21 ASPARATINE Allergy Severe Uncoded 07/12/07 06:22 STERIODS Allergy Severe Uncoded 07/12/07 06:22 MRI PRECAUTION Allergy Mild Uncoded 10/19/11 08:01 MUCINEX Allergy Mild Uncoded 10/19/11 08:04 Home Medications Medication Instructions Recorded Confirmed Type acetaminophen [Tylenol] 650 mg PO Q4H PRN 10/14/18 10/14/18 History carboxymethylcellulose sodium 1 drp EACH EYE Q3-4H PRN 10/14/18 10/14/18 History [Refresh Tears] fluticasone [Flovent HFA] 1 puff INHALATION DAILY 10/14/18 10/14/18 History lisinopril 10 mg PO DAILY 10/14/18 10/14/18 History meclizine 6.25 mg PO Q4H PRN 10/14/18 10/14/18 History phenytoin sodium extended 100 mg PO QAM 10/14/18 10/14/18 History [Dilantin Kapseal] phenytoin sodium extended 200 mg PO BID 10/14/18 10/14/18 History [Dilantin Kapseal] sodium chloride [Saline Nasal] 1 spray INTRANASAL DIRECTED PRN 10/14/1810/14 History warfarin [Coumadin] 5 mg PO 4XW 10/14/18 10/14/18 History warfarin [Coumadin] 7.5 mg PO 3XW 10/14/18 10/14/18 History Exam Vital signs: Vital Signs 10/14/18 13:10 10/14/18 13:25 10/14/18 15:00 Temperature 98.3 F Pulse Rate 66 66 73 Respiratory Rate 20 22 22 Blood Pressure 169/72 H 176/74 H Pulse Oximetry 95 96 Intake & Output 10/13/18 10/14/18 10/14/18 18:59 06:59 18:59 Weight 156.489 kg Narrative: Alert cooperative morbidly obese white lady resting comfortably with her dialysis patient care technician at bedside Skin warm and dry but showing actinic changes and some diffuse patchiness that may be age-related Head normocephalic atraumatic but with faint scar over the right hindu area Eyes PERRLA EOMI bilateral intraocular lenses sclera clear Mouth mucous membranes moist tongue well papillated no lesions uvula midline Neck obese difficult to palpate. Patient feels there is a slight swelling in her right parotid area but this is not palpable. There are no palpable masses carotids are intact and there are no bruits Chest nontender. Breath sounds are diminished bilaterally with no rales wheezes or rhonchi Cardiovascular PMI is not palpable there is a slightly irregular rhythm but no gallop rub or murmur Abdomen is massively obese but nontender with no guarding or rebound. Masses are not palpated. Extremities diffuse stasis edema of both lower extremities but no open lesions Neurologic cranial nerves (exclusive of testing olfactory optic and auditory) are intact. She does have a slight left facial droop but this is of long- standing. Motor strength is relatively weak for her size but is intact and appropriately equal bilaterally. Reflexes, gait and balance were not tested. Psychiatric affect mood and judgment appear to be normal Results 10/14/18 13:08 10/14/18 13:08 Cardiac Enzymes 10/14/18 10/14/18 Range/Units 13:08 13:08 AST 32 (15-37) U/L Troponin I Less than 0.02 L (0.02-0.05) ng/mL B-Natriuretic Peptide 102 H (0-100) pg/mL Coagulation 10/14/18 10/14/18 Range/Units 13:08 13:08 PT 26.8 H (9.8-11.6) sec APTT 40.8 H (23.4-31.7) sec B-Natriuretic Peptide 102 H (0-100) pg/mL CBC 10/14/18 Range/Units 13:08 WBC 8.4 (4.0-11.0) th/mm3 RBC 5.48 H (4.00-5.30) mil/mm3 Hgb 16.5 H (11.6-15.3) gm/dL Hct 48.9 H (35.0-46.0) % Plt Count 194 (150-450) th/mm3 Neut # (Auto) 5.8 (1.8-7.7) th/mm3 Lymph # (Auto) 1.7 (1.0-4.8) th/mm3 [place] # (Auto) 0.8 (0.0-0.9) th/mm3 Eos # (Auto) 0.1 (0.0-0.4) th/mm3 Baso # (Auto) 0.1 (0.0-0.2) th/mm3 Comprehensive Metabolic Panel 10/14/18 Range/Units 13:08 Sodium 140 (136-145) meq/L Potassium 4.1 (3.5-5.1) meq/L Chloride 105 (98-107) meq/L Carbon Dioxide 27.9 (21.0-32.0) meq/L BUN 15 (7-18) mg/dL Creatinine 0.92 (0.50-1.00) mg/dL Calcium 8.8 (8.5-10.1) mg/dL AST 32 (15-37) U/L ALT 50 (10-53) U/L Alkaline Phosphatase 142 H (45-117) U/L Total Protein 7.4 (6.4-8.2) g/dL Albumin 3.5 (3.4-5.0) g/dL Intake and Output 10/14/18 10/14/18 10/14/18 06:59 14:59 22:59 Other: Weight 156.489 kg Patient Weight 10/15/18 06:59 Weight 156.489 kg - Imaging and Cardiology Imaging: Impressions Chest X-Ray 10/14/18 12:41 CONCLUSION: No acute disease Head CT 10/14/18 12:41 CONCLUSION: 1. Stable negative noncontrast head CT. Caprini VTE Risk Assessment Caprini VTE Risk Assessment: Moderate/High Risk (score >= 2) (Patient is already on Coumadin with adequate level) Caprini Risk Assessment Model: Point Value = 1 Point Value = 2 Point Value = 3 Point Value = 5 Age 41-60 Minor surgery BMI > 25 kg/m2 Swollen legs Varicose veins or History of unexplained or recurrent spontaneous Oral contraceptives or hormone replacement Sepsis (< 1 month) Serious lung disease, including pneumonia (< 1 month) Abnormal pulmonary function Acute myocardial infarction Congestive heart failure (< 1 month) History of inflammatory bowel disease Medical patient at bed rest Age 61-74 Arthroscopic surgery Major open surgery (> 45 min) Laparoscopic surgery (> 45 min) Malignancy Confined to bed (> 72 hours) Immobilizing plaster cast Central venous access Age >= 75 History of VTE Family history of VTE Factor V Leiden Prothrombin [id number] Lupus anticoagulant Anticardiolipin antibodies Elevated serum homocysteine Heparin-induced thrombocytopenia Other congenital or acquired thrombophilia Stroke (< 1 month) Elective arthroplasty Hip, pelvis, or leg fracture Acute spinal cord injury (< 1 month) Prophylaxis Regimen: Total Risk Factor Score Risk Level Prophylaxis Regimen 0-1 Low Early ambulation 2 Moderate Order ONE of the following: *Sequential Compression Device (SCD) *Heparin 5000 units SQ BID 3-4 Higher Order ONE of the following medications: *Heparin 5000 units SQ TID *Enoxaparin/Lovenox 40 mg SQ daily (WT < 150 kg, CrCl > 30 mL/min) *Enoxaparin/Lovenox 30 mg SQ daily (WT < 150 kg, CrCl > 10-29 mL/min) *Enoxaparin/Lovenox 30 mg SQ BID (WT < 150 kg, CrCl > 30 mL/min) AND/OR *Sequential Compression Device (SCD) 5 or more Highest Order ONE of the following medications: *Heparin 5000 units SQ TID (Preferred with Epidurals) *Enoxaparin/Lovenox 40 mg SQ daily (WT < 150 kg, CrCl > 30 mL/min) *Enoxaparin/Lovenox 30 mg SQ daily (WT < 150 kg, CrCl > 10-29 mL/min) *Enoxaparin/Lovenox 30 mg SQ BID (WT < 150 kg, CrCl > 30 mL/min) AND *Sequential Compression Device (SCD) Assessment and Plan - Assessment (1) Hypertension Code(s): I10 - Essential (primary) hypertension Status: Acute Plan: Continue current medication (2) GERD (gastroesophageal reflux disease) Code(s): K21.9 - Gastro-esophageal reflux disease without esophagitis Status: Acute Plan: If she rules out for coronary artery disease or ischemia at this time she will be referred back to Dr. Moreira for further GI evaluation the a consultation (3) Asthma Code(s): J45.909 - Unspecified asthma, uncomplicated Status: Acute Plan: Continue current treatment as needed and follow-up with Dr. Sosa (4) CVA (cerebral vascular accident) Code(s): I63.9 - Cerebral infarction, unspecified Status: Acute Plan: Continue current medication and follow-up with Dr. Gwen Light (5) Arthritis Code(s): M19.90 - Unspecified osteoarthritis, unspecified site Status: Acute (6) Focal motor seizure disorder Code(s): G40.109 - Localization-related (focal) (partial) symptomatic epilepsy and epileptic syndromes with simple partial seizures, not intractable, without status epilepticus Status: Acute Plan: Continue current medication and follow-up with Dr. Delacruz (7) Dizziness of unknown cause Code(s): R42 - Dizziness and giddiness Status: Acute (8) Edema Code(s): R60.9 - Edema, unspecified Status: Acute (9) Atrial fibrillation Code(s): I48.91 - Unspecified atrial fibrillation Status: Acute Plan: Continue Coumadin - Plan This patient presents with multiple types of chest pain most of which appear to be GI in origin however her current presentation could represent ischemia and requires follow-up for that reason. After discussion with her primary care physician Dr. Moreira a decision was made to evaluate her with a Lexiscan. If this is positive she will be evaluated further with cardiac consultation. If negative she will be discharged back to Dr. Moreira for follow-up with GI in her usual subspecialists. She is obviously a very complex patient her current medications will not be altered during this admission unless a change of status necessitates.
[2018-10-14 20:53] LABS: Creatine Kinase 58 U/L (26-192)
[2018-10-14] MEDS: Phenytoin Sodium 100 MG Capsule PO SCH (21:43)
[2018-10-15 01:27] LABS: Creatine Kinase 67 U/L (26-192)
[2018-10-15 02:57] VITALS: O2SAT 95
[2018-10-15] MEDS ORDERED: Phenytoin Sodium 100 MG Capsule PO SCH (06:00)
[2018-10-15] MEDS ORDERED: Regadenoson Inj 0.4 MG/5 ML Syringe IV.PUSH ONE (07:42)
[2018-10-15] MEDS ORDERED: Lisinopril 10 MG Tablet PO SCH (09:00)
--- NOTE | 2018-10-15 12:26 | ECG ---
Date Performed: 10/14/2018 Time Performed: 20:22:29 PTAGE: 77 years EKG: Sinus rhythm WITH 2ND DEGREE AV BLOCK, MOBITZ TYPE II RIGHT BUNDLE BRANCH BLOCK INFERIOR MYOCARDIAL INFARCTION AB NORMAL ECG No significant change PREVIOUS TRACING : 10/14/2018 16.54 DOCTOR: Jeremías Juarez Interpretating Date/Time 10/15/2018 12:25:12
[2018-10-15 12:27] VITALS: BP 167/73; PULSE 93; RESP 18; TEMP 97.8
--- NOTE | 2018-10-15 12:27 | ECG ---
Date Performed: 10/14/2018 Time Performed: 16:54:50 PTAGE: 77 years EKG: ATRIAL FIBRILLATION MARKED LEFT AXIS DEVIATION RIGHT BUNDLE BRANCH BLOCK ABNORMAL ECG No si gnificant change PREVIOUS TRACING : 10/14/2018 13.49 DOCTOR: Jeremías Juarez Interpretating Date/Time 10/15/2018 12:25:59
--- NOTE | 2018-10-15 12:28 | ECG ---
Date Performed: 10/14/2018 Time Performed: 13:49:39 PTAGE: 77 years EKG: ATRIAL FIBRILLATION RIGHT BUNDLE BRANCH BLOCK INFERIOR MYOCARDIAL INFARCTION ABNORMAL ECG N o significant change NO PREVIOUS TRACING DOCTOR: Jeremías Juarez Interpretating Date/Time 10/15/2018 12:26:48
--- NOTE | 2018-10-15 12:31 | TR ---
Date Performed: 10/15/2018 Time Performed: 11:05:01 DOCTOR: Jeremías Juarez DRUG LIST: CLINICAL HISTORY: REASON FOR TEST: REASON FOR ENDING: OBSERVATION: CONCLUSION: Lexiscan stress test was performed under standard four minute protocol. Radionuclide was injected one minute prior to ending the test. No electrocardiographic abormalities were present to suggest ischemia. Nuclear imaging and interpretation are pending. COMMENTS:
--- NOTE | 2018-10-15 12:43 | NM ---
EXAM DATE: 10/15/2018 12:26 PM EST AGE/SEX: 77 years / Female INDICATIONS:Angina. . Mid chest pain for one day. CLINICAL DATA: This is the patient's initial encounter. Patient reports that signs and symptoms have been present for 1 day and indicates a pain score of 5/10. MEDICAL/SURGICAL HISTORY: Hypertension. Stroke. Cholecystectomy. COMPARISON: No prior exams available for comparison. No external comparison. DOSE: 11 mCi Tc 99m Myoview at rest 35 mCi [id number] at stress 0.4 mg Lexiscan STRESS SYMPTOMS: None. EJECTION FRACTION: 69 % TECHNIQUE: The patient underwent pharmacologic stress with infusion of prescribed dose. Continuous ECG tracing was monitored during stress. Gated SPECT imaging was performed after stress and conventi onal SPECT imaging was performed at rest. The examination was performed on a SPECT/CT scanner, both attenuation and non-corrected datasets were reviewed. FINDINGS: Distribution: The maximum perfused segment at stress is in the anterior wall. Perfusion Study: The pattern of perfusion at stress is within normal limits. Gated Study: There are intact wall motion and wall thickening without hypokinetic or dyskinetic segm ents. The ejection fraction is calculated at 69%. RISK CATEGORY: Low (<1% Annual Mortality Rate) CONCLUSION: Unremarkable myocardial perfusion scan. Electronically signed by: Thang Hearn MD Board Certified Radiologist 10/15/2018 12:41 PM EST
[2018-10-15] MEDS: Phenytoin Sodium 100 MG Capsule PO SCH (13:44)
== END 2018-10-15 14:46 | disposition home or self-care (01) ==
LOC: NEDA 11:48 → NEPD 11:48 → NEPHCDU 16:37
PROVIDERS: ADMIT Internal Medicine Interventional Cardiology; ATTEND Internal Medicine Interventional Cardiology
DX: Z79.51 Long term (current) use of inhaled steroids; F41.9 Anxiety disorder, unspecified; Z79.01 Long term (current) use of anticoagulants; I48.91 Unspecified atrial fibrillation; J45.909 Unspecified asthma, uncomplicated; K21.9 Gastro-esophageal reflux disease without esophagitis; Z86.73 Personal history of transient ischemic attack (TIA), and cerebral infarction without residual deficits; G40.109 Localization-related (focal) (partial) symptomatic epilepsy and epileptic syndromes with simple partial seizures, not intractable, without status epilepticus; I10 Essential (primary) hypertension; R06.02 Shortness of breath; R07.9 Chest pain, unspecified; I20.9 Angina pectoris, unspecified; Z79.899 Other long term (current) drug therapy; Z87.891 Personal history of nicotine dependence; M79.7 Fibromyalgia; M19.90 Unspecified osteoarthritis, unspecified site
CPT/HCPCS: 70450; 71010; 71045; 78452; 80053; 80185; 82550; 83520; 83690; 83735; 83880; 84484; 85025; 85610; 85730; 93005; 93017; 99285; A9502; G0378; J2785; Q9969